=== PATIENT | female | born 1950 | race Caucasian/White ===

== ENCOUNTER 2017-10-15 06:08 | Inpatient (IN) ==
[~2017-10-15 06:08] MED LIST: Bacitracin 50,000 UNIT, Polymyxin B Sulfate 500,000 UNIT, Sodium Chloride IRRigation 1,... IR ONE
[2017-10-15] MEDS ORDERED: Lidocaine -MPF 1% 2 ML VIAL ID ONE (06:27)
[2017-10-15] MEDS ORDERED: Albuterol 2.5 MG/3 ML NEBULIZER IH ONE (06:27)
[2017-10-15] MEDS ORDERED: CeFAZolin Syr 2,000MG/20 ML 2,000 MG/20 ML SYRINGE IVPB ONE (06:27)
[2017-10-15] MEDS ORDERED: Plasma-Lyte A (PH 7.4) 1,000 ML IVC SCH (06:30)
--- NOTE | 2017-10-15 06:59 | History & Physical Report ---
Date of Encounter: 10/15/17 Time of Encounter: 06:59 24 Hour HP Update - Instructions Instructions: If the History and Physical is less than 30 days old and was completed prior to A.M. admission and or procedure and has NOT been updated on calendar day of procedure please complete this update prior to performing procedure. - Update Patient reports changes in Medical Condition: No Changes in examination, assessment, or condition: No Changes in Medication: No Preop tests/diagnostics Reviewed: Yes Pre-Op MRSA Screen: Negative Surgery Remains Indicated: Yes Consent for Planned Operative Procedure(s) Verified: Yes - Pre-Operative Checklist Preoperative Checklist Indicated: No Prophylactic Antibiotic Ordered: Yes Home Medications Include Beta Jimy: Yes Beta Jimy Taken Today (Day of Surgery): No Beta Jimy Taken Yesterday (Day Prior to Surgery): Yes Is VTE Prophylaxis Indicated?: Yes
[2017-10-15] MEDS ORDERED: *HR* FentaNYL (PF) 100 MCG/2 ML VIAL ONE (07:19)
[2017-10-15] MEDS ORDERED: *HR* Succinylcholine 200 MG/10 ML VIAL IVP ONE (07:19)
[2017-10-15] MEDS ORDERED: *HR* Propofol 200 MG/20 ML VIAL IVP ONE (07:19)
[2017-10-15] MEDS ORDERED: Lidocaine -MPF 2% 2 ML VIAL ONE (07:19)
[2017-10-15] MEDS ORDERED: *HR* Midazolam HCl 2 MG/2 ML VIAL ONE (07:19)
[2017-10-15] MEDS ORDERED: *HR* Rocuronium Bromide 50 MG/5 ML VIAL ONE (07:19)
[2017-10-15] MEDS ORDERED: *HR* Remifentanil 2 MG VIAL IVP ONE (07:22)
--- NOTE | 2017-10-15 07:24 | Anesthesia Evaluation PreOp ---
Date of Encounter: 10/15/17 Time of Encounter: 07:18 - Past History Planned Operation: corpectomy C4, cervical fusion C3-6 Cardiac History: SD (by history, patient denies), HTN, Hyperlipidemia Pulmonary History: Denies Any Significant HX TRAVEL SERVICES PROFESSIONAL History: TIA (x2 no residual) Other Medical History: Diabetes Type II, Other (overall the patient and are poor historians.) Anesthesia History: No Prior Anesthetic Complications, Past Anesthesia (right ankle, cataract) : No Alcohol Use: none Drug use: none Medications and Allergies Aspirin 81 mg PO DAILY 10/15/17 [History] Carvedilol [Carvedilol] 3.125 mg PO BID 10/15/17 [History] Cilostazol [Cilostazol] 50 mg PO DAILY 10/15/17 [History] Clopidogrel [Plavix] 75 mg PO DAILY 10/15/17 [History] Docusate Sodium [Dok] 100 mg PO DAILY 10/15/17 [History] Medroxyprogesterone Acetate [Provera] 2.5 mg PO DAILY 10/15/17 [History] Metformin HCl [Metformin HCl ER] 1,000 mg PO BID 10/15/17 [History] Multivit-Min/FA/Lycopen/Lutein [Centrum Silver Tablet] 1 tab PO DAILY 10/15/17 [ History] Simvastatin [Zocor] 40 mg PO HS 10/15/17 [History] glipiZIDE [Glipizide] 20 mg PO BID 10/15/17 [History] hydroCHLOROthiazide [Hydrochlorothiazide] 12.5 mg PO QAM 10/15/17 [History] 3 Allergy/AdvReac Type Severity Reaction Status Date / Time No Known Allergies Allergy Verified 10/15/17 06:41 - Meds/Allergy Pre-op Review Medications Reviewed: Yes Allergies Reviewed: Yes Beta Blockers on Current Med List: Yes If Beta Blockers taken, Date/Time (Last Dose taken): today 0400 (they told nurse they hadn't taken med x 3 days) Anesthesia Results - Labs Laboratory Tests 10/08/17 10/08/17 14:00 14:00 Hgb 12.3 Hct 37.9 Plt Count 238 Sodium 140 Potassium 4.4 BUN 21 Creatinine 0.89 - Imaging EKG: report reviewed (SINUS RHYTHM BORDERLINE LEFT AXIS DEVIATION LOW QRS VOLTAGE PATTERN CONSISTENT WITH PULMONARY DISEASE) Anesthesia Exam Selected Entries 10/15/17 06:42 Temperature 97.9 F Pulse Rate 73 Respiratory Rate 18 Blood Pressure 132/56 O2 Sat by Pulse Oximetry 98 Weight: 64kg NPO (# of Hours): 8 - HEENT Pupil (Motor): EOMI Mallampati: II Teeth: Poor dentition Oral Opening: Less than or equal to 3 - TRAVEL SERVICES PROFESSIONAL LOC: Oriented TRAVEL SERVICES PROFESSIONAL Motor: Normal RUE, Normal LUE, Normal RLE, Normal LLE, Normal Face TRAVEL SERVICES PROFESSIONAL Sensory: Normal: RUE, LUE, RLE, LLE, Face - Cardiac Rhythm: Regular Murmur: None - Pulmonary Breath Sounds: bilateral Clear Respiratory Effort: Symmetrical Anesthesia Assess/Plan ASA Score: 3 Modified [place] Scale for Level of Consciousness: Cooperative, oriented, and tranquil Anesthetic Plan: General Monitoring Plan: Standard Monitors Recovery Plan: PACU (agrees to GA)
[2017-10-15] MEDS ORDERED: *HR* Phenylephrine 10 MG/ML VIAL ONE (07:30)
[2017-10-15] MEDS ORDERED: Propofol 500 MG/50 ML INFUS..BTL ONE ×4 (07:31→10:42)
[2017-10-15] MEDS ORDERED: *HR* Promethazine 25 MG/ML VIAL IVP PRN (09:01)
[2017-10-15] MEDS ORDERED: *HR* Labetalol 20 MG/4 ML SYRINGE IVP PRN (09:01)
[2017-10-15] MEDS ORDERED: Ondansetron 4 MG/2 ML VIAL IVP ONE (09:01)
[2017-10-15] MEDS ORDERED: *HR* HYDROmorphone (PF) 1 MG/ML SYRINGE IVP PRN (09:01)
[2017-10-15] MEDS ORDERED: Ondansetron 4 MG/2 ML VIAL ONE (10:34)
[2017-10-15] MEDS ORDERED: Dexamethasone 4 MG/ML VIAL ONE (10:34)
--- NOTE | 2017-10-15 11:55 | Orthopedic Operative Note ---
Date of procedure: 10/15/17 Pre-op diagnosis: Cervical stenosis, cervical myelopathy Post-op diagnosis: same Operation/Findings: Corpectomy C4, Anterior cervical fusion C3-C6: The patient was brought to the operating room and placed supine on the operating room table. Successful general endotracheal anesthesia intubation was performed. Neurophysiologic monitoring personnel placed leads on the upper and lower extremities as well as the cranium for EMG monitoring purposes. Appropriate baseline potentials were noted by the neurophysiologic monitoring staff. Fernandez catheter was placed prior to positioning. Compression boots and stockings were placed for deep vein thrombosis prophylaxis. Padding was also placed all bony prominences including the ulnar nerve near the medial epicondyles of the elbows were appropriately padded. Mild traction was placed on the bilateral shoulders and taped into place. Preoperative antibiotics were administered. The area from the mandible bilaterally to the upper thoraces was prepped and draped in the usual sterile fashion. An oblique incision was made at the level of the cricoid cartilage which is approximately 3 cm in length and extended from the midline of the cervical spine laterally towards the sternocleidomastoid muscle on the left. It was 1 cm medial and parallel to the sternocleidomastoid muscle on the left. We then performed standard medial approach to the carotid sheath. Sponges were used to tease the fascial medial to the sternocleidomastoid muscle while carefully controlling and palpating the carotid artery. Using careful dissection we were able to get to the level of the anterior vertebral bodies and longus coli muscles. The spinal needle was placed at the appropriate C5-6 level, and intraoperative radiograph was obtained which was a cervical spine lateral radiograph. The needle and radiograph confirmed we were at the correct C5-6 operative level. We further exposed this level by using Bovie cautery under the medial edge of the longus colli muscles to allow them to be retracted approximately 2 mm laterally on each side. An 11 blade was used to perform anterior discectomy at the appropriate C5-6 level after an initial annulotomy of the anterior longitudinal ligament and annulus was performed. Further disc material was removed with pituitary Rongeurs. Subsequently, Synthes pins were placed at the C6 and C7 vertebral bodies respectively to provide distraction. We then used a Trimline cervical retractor which was placed in both medial and lateral as well as inferior superior direction to allow full visualization of the appropriate C5-6 disc and C5 and C6 vertebral bodies. The Leica microscope was brought to the field and the remainder of the procedure was performed under the guidance of this microscope. Using pituitary rongeurs and small curettes, various micro- instruments, a full discectomy was performed at the appropriate C5-6 level. The posterior longitudinal ligament was encountered and appeared partially calcified. A portion of this ligament was removed. After complete and thorough discectomy and removal of spondylitic material was performed the endplates of the C5 and C6 vertebral bodies were prepared with a bur until allow bleeding of cancellous bone. A 8mm trial graft was evaluated and appeared to fit quite well within the excised C5-6 disc space. A cortico- cancellous allograft of 8 mm was utilized, carefully tapped into place within the excised disc space with the aid of a bone tamp. It was seated approximately 2 mm from the anterior edge of the cortex of the adjacent vertebral bodies. We then turned our attention to the C4-5 level where a similar series of procedures was performed including discectomy, removal of spondylitic material, and end plate preparation. We then turned our attention to the C3-4 level where an additional discectomy and decompression was performed at this level. This left intervening C4 vertebral body. We removed the C4 anterior portion of the vertebral body with Elia using pituitary instruments. Bone was saved for later use within the expandable cage. We decompressed all the way back to the posterior longitudinal ligament and also visualize the spinal cord. At this point the decompression was complete and will space between the inferior endplate of C3-4 to the superior endplate of C5- [address] the [address] to the posterior longitudinal ligament. With the decompression was approximately 7 mm on either side of the midline from C3- C5. We measured the intervening space from the anterior portion of C3 to the superior portion of C5 with a caliper. The appropriate size expandable cage was selected. We packed this expandable cage with autograft bone taken from the corpectomy portion of the procedure(C4). The corpectomy cage was carefully placed after it was packed with autograft bone with the aid of biplanar fluorographic views. When found to be in appropriate position the cage was expanded to the appropriate height and the chocolate finisher removed. A cervical plate was then placed on the anterior aspect of the C3, C4, C5 and C6 vertebral bodies. The plate was placed in the midline position after drilling six 13 mm self tapping screws and inserting them. They were locked in place using standard Venture plate maneuvers. At this point a lateral radiograph of the cervical spine was obtained and showed satisfactory position of the interbody cage, graft, and plate. The wound was copiously irrigated and bleeders encountered were cauterized using Bovie cautery. Platysma was closed with interrupted 2-0 Vicryl sutures. Running 3-0 Monocryl suture was used for skin closure. Sterile dressing was placed over the neck wound. A cervical collar was placed. The patient was transferred to a hospital bed and extubated. The patient was noted to be fully motor and sensory intact in the recovery room at the end of the procedure. The medications. All sponge instrument and needle counts were correct at the end of the procedure. Anesthesia: NIGEL Surgeon: Skip John Jr Was there an hospital clinic assistant present: No Estimated blood loss (cc): 100 Specimen: none Condition: stable Disposition: PACU
[2017-10-15] MEDS: *HR* Morphine 2 MG/ML SYRINGE IVP PRN ×3 (12:34→13:05)
--- NOTE | 2017-10-15 13:13 | Anesthesia Evaluation Post Op ---
Date of Encounter: 10/15/17 Time of Encounter: 13:13 - Vital Signs Vital Signs: Vital Signs/O2 Sat, Most Current Temp Pulse Resp BP Pulse Ox 98.3 F 64 16 99/54 94 10/15/17 12:42 10/15/17 12:52 10/15/17 12:52 10/15/17 12:52 10/15/17 12:52 - Lungs Lungs: Clear Ascult./Percussion - Airway Airway: Non-obstructed - Cardiovascular Regular Rate - Mental Status Mental Status: Asleep with brisk response to light stimulation - Pain Pain Scale: 4 Pain Scale used: Numeric (1 - 10) - Nausea Vomiting Nausea Vomiting: Not Present - Hydration Hydration: NPO, Fernandez catheter - Discharge PostOp Status: Transfer Patient to floor
[2017-10-15] MEDS ORDERED: Naloxone 0.4 MG/ML INJ IVP PRN (13:19)
[2017-10-15] MEDS ORDERED: Acetaminophen 325 MG TABLET PO PRN (13:19)
[2017-10-15] MEDS ORDERED: Ondansetron 4 MG/2 ML VIAL IVP PRN (13:19)
[2017-10-15] MEDS: *HR* OxyCODONE Immed Rel 5 MG TABLET PO PRN (14:17)
[2017-10-15] MEDS: CeFAZolin Premix DUPLEX 2,000 MG/50 ML BAG IVPB SCH ×2 (17:09→23:44)
[2017-10-15] MEDS: *HR* GlipiZIDE 5 MG TABLET PO SCH (17:14)
[2017-10-15] MEDS: *HR* Metformin 500 MG TABLET PO SCH (17:14)
[2017-10-15] MEDS: Ringers Solution, Lactated 1,000 ML IVC SCH (19:41)
[2017-10-16 04:03] LABS: Basophils % 0.2 %; Hematocrit 24.1 % (35.3-44.9); Immature Granulocytes % 0.3 % (0-4); Lymphocytes # 0.7 K/mcL (0.6-4.6); Lymphocytes % 7.4 %; Mean Corpuscular HGB Conc 33.2 g/dL (31.6-35.5); Mean Corpuscular Hemoglobin 25.8 pg (28.0-33.3); Mean Corpuscular Volume 77.7 fL (83.0-100.0); Monocytes % 11.1 %; Neutrophils # 7.2 K/mcL (1.6-8.9); Nucleated Red Blood Cells 0.2 /100 WBC (0); Platelet Count 210 K/mcL (140-400); Red Cell Distribution Width 13.8 % (11.5-14.5)
[2017-10-16] MEDS: Ringers Solution, Lactated 1,000 ML IVC SCH ×3 (05:02→17:51)
[2017-10-16] MEDS: *HR* OxyCODONE Immed Rel 5 MG TABLET PO PRN (05:03)
[2017-10-16] MEDS: Aspirin 81 MG TAB.CHEW PO SCH (08:12)
[2017-10-16] MEDS: Multivit/Ca/Min/Fe/FA 1 TAB TABLET PO SCH (08:12)
[2017-10-16] MEDS: *HR* GlipiZIDE 5 MG TABLET PO SCH ×2 (08:12→17:49)
[2017-10-16] MEDS: *HR* Metformin 500 MG TABLET PO SCH ×2 (08:13→17:50)
[2017-10-16] MEDS: hydroCHLOROthiazide 25 MG TABLET PO SCH (08:13)
[2017-10-16] MEDS: *HR* Morphine 2 MG/ML SYRINGE IVP PRN ×2 (12:50→17:48)
[2017-10-16] MEDS ORDERED: Ipratropium/Albuterol Neb 3 ML IH PRN (19:23)
[2017-10-17] MEDS ORDERED: Aminoglycoside Consult 1 EACH MC ONE (08:29)
[2017-10-17] MEDS: hydroCHLOROthiazide 25 MG TABLET PO SCH (09:36)
[2017-10-17] MEDS: *HR* Metformin 500 MG TABLET PO SCH (09:36)
[2017-10-17] MEDS: *HR* GlipiZIDE 5 MG TABLET PO SCH (09:36)
[2017-10-17] MEDS: Multivit/Ca/Min/Fe/FA 1 TAB TABLET PO SCH (09:37)
[2017-10-17] MEDS: Aspirin 81 MG TAB.CHEW PO SCH (09:37)
--- NOTE | 2017-10-17 13:22 | Spine Progress Note ---
Date of Encounter: 10/16/17 Time of Encounter: 13:15 Subjective Principal diagnosis: Cervical myelopathy, status post corpectomy and cervical fusion Interval history: The patient is without complaints she is a poor historian.. Afebrile vital signs are stable. Incision is clean dry and intact. She is still nonambulatory and has impairments in upper extremity function which are baseline. Assessment :stable. Plan mobilize ,continue analgesics, discharge planning. Will likely need rehabilitation Objective Vital signs: Vital Signs Temp Pulse Resp BP Pulse Ox 10/17/17 11:38 98.9 F 92 17 103/58 91 10/17/17 07:37 99.9 F H 99 17 118/56 97 10/17/17 00:36 100 10/16/17 23:52 99.6 F 101 17 110/71 100 10/16/17 21:11 98 10/16/17 20:58 98.4 F 96 18 137/80 98 10/16/17 16:19 98.4 F 91 17 121/69 95 Intake and Output 10/16/17 10/17/17 10/17/17 23:59 07:59 15:59 Intake Total 584 / 584 Balance 584 / 584 Intake: IV Fluids 584 / 584 Lactated Ringers 1,000 ML @ 100 584 / 584 mls/hr IVC .Q10H ALEX Rx#: [id number] Oral 0 / 0 Other: # Urine Diapers 2 1 2 Blood Glucose* 231 159 196 - Labs CBC & BMP: 10/16/17 03:43 Labs: Abnormal lab results RBC 3.10 M/mcL (3.82-4.97) L 10/16/17 03:43 Hgb 8.0 g/dL (11.5-15.4) L 10/16/17 03:43 Hct 24.1 % (35.3-44.9) L 10/16/17 03:43 MCV 77.7 fL (83.0-100.0) L 10/16/17 03:43 MCH 25.8 pg (28.0-33.3) L 10/16/17 03:43 Nucleated RBCs/100 WBC 0.2 /100 WBC (0) H 10/16/17 03:43 POC Glucose 197 (58-89) H 10/17/17 11:57 Consult Discharge Plan - Plan Referrals: NONE,PCP [Primary Care Provider] -
--- NOTE | 2017-10-17 13:24 | Spine Progress Note ---
Date of Encounter: 10/17/17 Time of Encounter: 13:22 Subjective Principal diagnosis: Cervical myelopathy, status post corpectomy and cervical fusion Interval history: The patient sounds congested and required deep suctioning last night. Afebrile vital signs are stable. Incision is clean dry and intact. She is still nonambulatory and has impairments in upper extremity function which are baseline. Assessment :stable. Concern for aspiration. Plan mobilize , continue analgesics, I am going to obtain swallow evaluation, get respiratory on board for aerosol treatments and pulmonary toilet. Also will consider hospitalist consult. I will also order chest x-ray. Objective Vital signs: Vital Signs Temp Pulse Resp BP Pulse Ox 10/17/17 11:38 98.9 F 92 17 103/58 91 10/17/17 07:37 99.9 F H 99 17 118/56 97 10/17/17 00:36 100 10/16/17 23:52 99.6 F 101 17 110/71 100 10/16/17 21:11 98 10/16/17 20:58 98.4 F 96 18 137/80 98 10/16/17 16:19 98.4 F 91 17 121/69 95 Intake and Output 10/16/17 10/17/17 10/17/17 23:59 07:59 15:59 Intake Total 584 / 584 Balance 584 / 584 Intake: IV Fluids 584 / 584 Lactated Ringers 1,000 ML @ 100 584 / 584 mls/hr IVC .Q10H ALEX Rx#: [id number] Oral 0 / 0 Other: # Urine Diapers 2 1 2 Blood Glucose* 231 159 196 - Labs CBC & BMP: 10/16/17 03:43 Labs: Abnormal lab results RBC 3.10 M/mcL (3.82-4.97) L 10/16/17 03:43 Hgb 8.0 g/dL (11.5-15.4) L 10/16/17 03:43 Hct 24.1 % (35.3-44.9) L 10/16/17 03:43 MCV 77.7 fL (83.0-100.0) L 10/16/17 03:43 MCH 25.8 pg (28.0-33.3) L 10/16/17 03:43 Nucleated RBCs/100 WBC 0.2 /100 WBC (0) H 01/18/18 03:43 POC Glucose 197 (58-89) H 10/17/17 11:57 Consult Discharge Plan - Plan Referrals: NONE,PCP [Primary Care Provider] -
[2017-10-17 15:10] LABS: Basophils % 0.3 %; Eosinophils % 0.3 %; Hematocrit 25.6 % (35.3-44.9); Hemoglobin 8.5 g/dL (11.5-15.4); Immature Granulocytes % 0.4 % (0-4); Lymphocytes # 0.6 K/mcL (0.6-4.6); Mean Corpuscular HGB Conc 33.2 g/dL (31.6-35.5); Mean Corpuscular Volume 78.3 fL (83.0-100.0); Mean Platelet Volume 10.5 fL (9.4-12.4); Monocytes % 14.5 %; Neutrophils # 5.5 K/mcL (1.6-8.9); Platelet Count 219 K/mcL (140-400); Red Blood Count 3.27 M/mcL (3.82-4.97); Red Cell Distribution Width 13.9 % (11.5-14.5); Segmented Neutrophils % 76.5 %
[2017-10-17 15:28] LABS: Alanine Aminotransferase 6 Units/L (7-52); Albumin 3.1 g/dL (3.5-5.7); Albumin/Globulin Ratio 1.1 (1.1-2.2); Alkaline Phosphatase 74 Units/L (34-104); Aspartate Amino Transferase 17 Units/L (13-39); BUN/Creatinine Ratio 26 (6-26); Bilirubin,Total 0.5 mg/dL (0.3-1.0); Blood Urea Nitrogen 15 mg/dL (8-23); Calcium 8.4 mg/dL (8.6-10.3); Carbon Dioxide 25 mEq/L (23-29); Chloride 95 mEq/L (98-107); Globulin 2.8 g/dL (2.4-3.5); Glucose 190 mg/dL (70-105); Osmolality,Calculated 276 (280-300); Potassium 3.7 mEq/L (3.5-5.1); Sodium 130 mEq/L (136-145); Total Protein 5.9 g/dL (6.4-8.9); eGFR For African Americans > 60 (> 60); eGFR For Non-African Americans > 60 (> 60)
[2017-10-17 15:32] LABS: ABG Base Excess 3 mEq/L (-2 to 3); ABG HCO3 27 mEq/L (21-27); ABG Oxygen Saturation 94 % (95-98); ABG PCO2 35 mmHg (35-45); ABG PH 7.49 pH Units (7.32-7.45); ABG PO2 63 mmHg (85-104); ABG TCO2 28 mEq/L (20-26)
[2017-10-17] MEDS ORDERED: Furosemide 40 MG/4 ML VIAL IVP ONE (15:45)
--- NOTE | 2017-10-17 15:52 | Event Note ---
Date of Encounter: 10/17/17 Time of Encounter: 15:47 Patient seen and examined with nurse practitioner. Patient wheelchair bound due to spinal cord injury long time ago but was able to use her arms and no problems swallowing before. Currently Hypoxic respiratory failure due to aspiration pneumonia. Patient is requiring facemask. She is requrigin suctioning every hour so will transfer to ICU as I expect she may need intubation. arterial blood gas was a pH of 7.49, PO to 63. She got 10 mg of Roxicodone this morning will give on those of Narcan as the patient is a patient is lethargic. CT scan of the head will be performed. patient will be transferred to intensive care unit. Close Monitoring of respiratory status. Will give Narcan just physical therapy suctioning keep NPO and re-evaluate. Full code.
--- NOTE | 2017-10-17 15:52 | Internal Medicine Consult Note ---
Date of Encounter: 10/17/17 Time of Encounter: 15:00 - Assessment and Plan (1) Pneumonia Current Visit: Yes Status: Acute Assessment and plan: Acute pneumonia. Pt. is post-surgical status for cervical fusion two days ago and developed SOB, dypsnea, and inability to clear airway secretions. Consult to Hospitalist for medical mgmt. Blood cultures x2. Sputum culture. Legionella and strep pneunomiae antigens ordered. Pt. is currently incontinent, so Fernandez catheter ordered to prevent skin breakdown. IVPB vancomycin w/pharmacy dosing and Zosyn 3.375 gm Q8 for infection coverage. Will adjust abx coverage based on culture results. Supplemental O2 w/titration and SpO2 monitoring. DuoNebs Q4 scheduled. Pt. does not currently meet sepsis criteria but will be monitored closely as well as f/u labs. Pt. discussed w/Dr. Peralta who is in agreement w/ plan of care. Pt. is high risk for further morbidity, sepsis, respiratory distress and/or failure, and cardiac distress based on current sx and risk factors. Inpatient. Qualifiers: Pneumonia type: due to unspecified organism Laterality: right Lung location: lower lobe of lung Qualified Code(s): J18.1 - Lobar pneumonia, unspecified organism (2) Airway clearance impairment Current Visit: Yes Status: Acute Assessment and plan: Acute airway clearance impairment complicated by current pneumonia. Pt. having difficulty clearing airway secretions and is high risk for aspiration. NPO. Airway suctioning ordered. Will hold PO medications. Pulmonology consult ordered and discussed w/Dr. Benitez regarding possible need for bronch and/or intubation. I appreciate the consult. Pt. being transferred from [facility] to ICU. Continuous aspiration precautions. Pt. to be monitored closely. (3) Status post cervical spinal fusion Current Visit: Yes Status: Acute Assessment and plan: Acute status post cervical spinal fusion 2 days ago. Patient to be followed by Dr. John. (4) Hypoxia Current Visit: Yes Status: Acute Assessment and plan: Acute hypoxia r/t current pneumonia dx of right mid to lower lobe and inability to clear airway secretions. ABG ordered stat. Pt. SpO2 was in 70's. Placed on 4L and SpO2 improved to low 90's. Concern is for high risk of aspiration d/t pts. inability to clear airway secretions. Pulmonology consult ordered and discussed w/Dr. Benitez regarding possible need for bronch and/or intubation. I appreciate the consult. Pt. being transferred from [facility] to ICU. DuoNebs Q4 scheduled. (5) HTN (hypertension) Current Visit: Yes Status: Chronic Assessment and plan: Hx of chronic HTN. Monitor pt. and VS. Pt. takes PO hydrochlorothiazide and carvedilol. Will hold PO meds for now d/t high risk of aspiration and inability to clear airway secretions. Consider adding hydralazine 10 mg Q6 PRN for HTN. Qualifiers: Hypertension type: essential hypertension Qualified Code(s): I10 - Essential (primary) hypertension (6) HLD (hyperlipidemia) Current Visit: Yes Status: Chronic Assessment and plan: Hx of chronic HLD. Lipid panel in a.m. labs. Pt. takes Zocor. Will hold PO meds for now d/t high risk of aspiration and inability to clear airway secretions. Qualifiers: Hyperlipidemia type: pure hypercholesterolemia Qualified Code(s): E78.00 - Pure hypercholesterolemia, unspecified; E78.0 - Pure hypercholesterolemia (7) Diabetes Current Visit: Yes Status: Chronic Assessment and plan: Hx of diabetes controlled w/oral anti-hyperglycemics. Hold oral and administer low-dose correction insulin sliding scale w/hypoglycemic protocol. BG checks Q6. A1c in a.m. labs. Qualifiers: Diabetes mellitus type: type 2 Diabetes mellitus complication status: with unspecified complications Diabetes mellitus continuous churn buttermaker insulin use: without correction use Qualified Code(s): E11.8 - Type 2 diabetes mellitus with unspecified complications (8) DVT prophylaxis Current Visit: Yes Status: Acute Assessment and plan: Bilateral SCDs on LEs for DVT prophylaxis d/t post-surgical status and substantial drop in HGB from 12.3 on 10/08/17 to 8.0 today. Monitor pt. for signs of bleeding. Internal Medicine - CN: HPI - Data of Consult Patient: new to practice Consult date: 10/17/17 Requesting Physician: Skip John Jr MD - Consult Narrative Reason for consult: Medical mgmt of SOB/dyspnea/pneumonia History of present illness: Ms. Marcos is a 67 year old female with medical hx of diabetes, HLD, and HTN presents for consult from Dr. John d/t sx of SOB, dyspnea, and suspected pneumonia. Pt. had cervical fusion two days ago and was found to be having increased SOB, dyspnea, and increasing inability to clear airway secretions that began approximately at noon today. CXR ordered which shows airspace opacity in the right mid to lower lung field likely related to pneumonia. Pt. is able to answer simple questions on exam, but most information comes from pts. sister who is present on exam. Sister states pt. was able to hold conversation several days ago and had no sx of respiratory distress. Pt. is wheelchair-bound and/or is carried by her . Denies recent illness, fever , chills, nausea, vomiting, chest pain, changes in vision, abdominal pain, numbness, tingling, pre-syncope, or syncope. Past Med Surg Social Fam HX - Past Medical History Source: patient, old records reviewed, obtained from family Medical history: diabetes, hyperlipidemia, hypertension Psychiatric history: no psych history - Past Surgical History Surgical History: cataract - Social History Smoking Status: Never smoker Alcohol use: none Drug use: none Current living situation: Home, With Family Activity Level: Wheelchair bound Recent Out of Country Travel Within the Last 8 Weeks: No Exposure or Possible Exposure to Illness During Travel: No - Family History Father Race: Family Member Ethnicity: Non- Living Status: Age at : 61 Cause of : [place] Hx Family Cardiac Disorders: Yes ([place], HTN, HLD) Mother Race: Family Member Ethnicity: Non- Living Status: Age at : 80 Cause of : CHF Hx Family Cardiac Disorders: Yes (Stroke, CHF) Hx Family Endocrine Disorder: Yes (DM) Sister Race: Family Member Ethnicity: Non- Living Status: Still Living Hx Family Cardiac Disorders: Yes (Open heart surgery, HTN) - Constitutional Constitutional: as per HPI - EENT Eyes: as per HPI Ears: as per HPI Nose, mouth and throat: as per HPI - Breasts Breasts: as per HPI - Cardiovascular Cardiovascular ROS IM: as per HPI, dyspnea, dyspnea on exertion, irregular heart rhythm (Tachycardia) - Respiratory Respiratory: as per HPI, dyspnea, dyspnea on exertion - Gastrointestinal Gastrointestinal: as per HPI - Genitourinary Genitourinary: as per HPI Menstruation: as per HPI - Musculoskeletal Musculoskeletal ROS IM: as per HPI - Integumentary Integumentary IM: as per HPI - Neurological Neurological ROS: as per HPI, behavioral changes - Psychiatric Psychiatric: as per HPI - Endocrine Endocrine IM: as per HPI - Hematologic/Lymphatic Hematologic/Lymphatic: as per HPI - Allergic/Immunologic Allergic/Immunologic: as per HPI Internal Medicine - CN: Meds Aspirin 81 mg PO DAILY 10/15/17 [History] Carvedilol [Carvedilol] 3.125 mg PO BID 10/15/17 [History] Cilostazol [Cilostazol] 50 mg PO DAILY 10/15/17 [History] Clopidogrel [Plavix] 75 mg PO DAILY 10/15/17 [History] Docusate Sodium [Dok] 100 mg PO DAILY 10/15/17 [History] Medroxyprogesterone Acetate [Provera] 2.5 mg PO DAILY 10/15/17 [History] Metformin HCl [Metformin HCl ER] 1,000 mg PO BID 10/15/17 [History] Multivit-Min/FA/Lycopen/Lutein [Centrum Silver Tablet] 1 tab PO DAILY 10/15/17 [ History] Simvastatin [Zocor] 40 mg PO HS 10/15/17 [History] glipiZIDE [Glipizide] 20 mg PO BID 10/15/17 [History] hydroCHLOROthiazide [Hydrochlorothiazide] 12.5 mg PO QAM 10/15/17 [History] 3 Allergy/AdvReac Type Severity Reaction Status Date / Time No Known Allergies Allergy Verified 10/15/17 06:41 Internal Medicine - CN: Exam - Constitutional Vitals: Temp Pulse Resp BP Pulse Ox 98.9 F 92 17 103/58 91 10/17/17 11:38 10/17/17 11:38 10/17/17 11:38 10/17/17 11:38 10/17/17 11:38 General appearance IM: Present: cooperative, A&O X 3, obese, severe distress, answers questions appropriately (w/several attempts) - Head Head exam: Present: atraumatic, normocephalic - Eye Eye exam: Present: PERRL, conjuntiva pink, sclera anicteric Pupils: Present: normal accommodation, PERRL - ENT ENT exam: Present: normal exam - Neck Neck exam general surgery: Present: normal inspection - Respiratory Respiratory exam: Present: accessory muscle use, respiratory distress, rhonchi ( Bilaterally in all lobes) - Expanded Respiratory Exam Location: rhonchi: Left, Right, Upper, Lower - Cardiovascular Cardiovascular exam IM: Present: tachycardia - GI/Abdominal GI/Abdominal exam IM: Present: normal bowel sounds, soft, no peritoneal signs - Rectal Rectal exam: Present: deferred - Additional comments: exam deferred. - Extremities Exam Extremities exam IM: Present: pedal edema, warm, radial pulses palpable and symmetrical - Back Exam Back exam: Present: normal inspection - Neurological Exam Neurological exam: Present: alert, oriented X3, no focal deficits - Psychiatric Psychiatric exam: Present: anxious - Skin Skin exam IM: Present: dry, intact Internal Medicine - CN: Reslt - Labs CBC & Chem 7: 10/17/17 15:00 10/17/17 15:00 Labs: Short CBC 10/17/17 Range/Units 15:00 WBC 7.1 (4.3-11.1) K/mcL Hgb 8.5 L (11.5-15.4) g/dL Hct 25.6 L (35.3-44.9) % Plt Count 219 (140-400) K/mcL Neutrophils # 5.5 (1.6-8.9) K/mcL BMP 10/17/17 15:00 Sodium 130 L Potassium 3.7 Chloride 95 L Carbon Dioxide 25 BUN 15 Creatinine 0.57 L Glucose 190 H Calcium 8.4 L Liver Function 10/17/17 Range/Units 15:00 Total Bilirubin 0.5 (0.3-1.0) mg/dL AST 17 (13-39) Units/L ALT 6 L (7-52) Units/L Alkaline Phosphatase 74 (34-104) Units/L Albumin 3.1 L (3.5-5.7) g/dL - ABG Interpretation ABG results: ABG ABG pH 7.49 pH Units (7.32-7.45) H 10/17/17 15:27 ABG pCO2 35 mmHg (35-45) 10/17/17 15:27 ABG pO2 63 mmHg (85-104) L 10/17/17 15:27 ABG O2 Saturation 94 % (95-98) L 10/17/17 15:27 - Impressions Impressions Chest X-Ray 10/17/17 13:15 IMPRESSION: Airspace opacity in the right mid to lower lung field, likely related to pneumonia. D/ / Dilip Saini MD / Dilip Saini MD Interpreting Provider: Dilip Siani MD - Diagnostic Studies Chest x-ray Additional comments: Impressions Chest X-Ray 10/17/17 13:15 IMPRESSION: Airspace opacity in the right mid to lower lung field, likely related to pneumonia. D/ / Dilip Saini MD / Dilip Saini MD Interpreting Provider: Dilip Saini MD Consult Discharge Plan - Plan Referrals: NONE,PCP [Primary Care Provider] -
[2017-10-17] MEDS: Ipratropium/Albuterol Neb 3 ML IH SCH ×3 (15:53→23:52)
[2017-10-17] MEDS ORDERED: Vancomycin 1,000 MG in D5% in Water 250 ML IVPB SCH (16:00)
[2017-10-17] MEDS ORDERED: Piperacillin/Tazobactam 3.375 GM/200 ML BAG IVPB SCH (16:00)
[2017-10-17] MEDS ORDERED: D5% in Water 1,000 ML IVC PRN (16:20)
[2017-10-17] MEDS ORDERED: Dextrose Gel 15 GM/37.5 ML TUBE PO PRN ×2 (16:20)
[2017-10-17] MEDS ORDERED: *HR* Dextrose 50 % in Water (Syg) 50 ML SYRINGE IVP PRN (16:20)
--- NOTE | 2017-10-17 17:37 | Pulmonology Consult Note ---
<Yassine Benitez M - Last Filed: 10/17/17 17:51> Date of Encounter: 10/17/17 Medications and Allergies Aspirin 81 mg PO DAILY 10/15/17 [History] Carvedilol [Carvedilol] 3.125 mg PO BID 10/15/17 [History] Cilostazol [Cilostazol] 50 mg PO DAILY 10/15/17 [History] Clopidogrel [Plavix] 75 mg PO DAILY 10/15/17 [History] Docusate Sodium [Dok] 100 mg PO DAILY 10/15/17 [History] Medroxyprogesterone Acetate [Provera] 2.5 mg PO DAILY 10/15/17 [History] Metformin HCl [Metformin HCl ER] 1,000 mg PO BID 10/15/17 [History] Multivit-Min/FA/Lycopen/Lutein [Centrum Silver Tablet] 1 tab PO DAILY 10/15/17 [ History] Simvastatin [Zocor] 40 mg PO HS 10/15/17 [History] glipiZIDE [Glipizide] 20 mg PO BID 10/15/17 [History] hydroCHLOROthiazide [Hydrochlorothiazide] 12.5 mg PO QAM 10/15/17 [History] 3 Allergy/AdvReac Type Severity Reaction Status Date / Time No Known Allergies Allergy Verified 10/15/17 06:41 All Systems: A 10-system review of systems was performed and is negative for pertinent findings except as documented above in the HPI. Physical Examination Vital Signs: Vital Signs, Last 4 Hours Resp Pulse Ox 10/17/17 16:00 16 97 Results - Laboratory Findings CBC and BMP: 10/17/17 15:00 10/17/17 15:00 ABG ABG pH 7.49 pH Units (7.32-7.45) H 10/17/17 15:27 ABG pCO2 35 mmHg (35-45) 10/17/17 15:27 ABG pO2 63 mmHg (85-104) L 10/17/17 15:27 ABG O2 Saturation 94 % (95-98) L 10/17/17 15:27 Abnormal lab findings: Abnormal lab results RBC 3.27 M/mcL (3.82-4.97) L 10/17/17 15:00 Hgb 8.5 g/dL (11.5-15.4) L 10/17/17 15:00 Hct 25.6 % (35.3-44.9) L 10/17/17 15:00 MCV 78.3 fL (83.0-100.0) L 10/17/17 15:00 MCH 26.0 pg (28.0-33.3) L 10/17/17 15:00 Nucleated RBCs/100 WBC 0.2 /100 WBC (0) H 10/16/17 03:43 ABG pH 7.49 pH Units (7.32-7.45) H 10/17/17 15:27 ABG pO2 63 mmHg (85-104) L 10/17/17 15:27 ABG Total CO2 28 mEq/L (20-26) H 10/17/17 15:27 ABG O2 Saturation 94 % (95-98) L 10/17/17 15:27 Sodium 130 mEq/L (136-145) L 10/17/17 15:00 Chloride 95 mEq/L (98-107) L 10/17/17 15:00 Creatinine 0.57 mg/dL (0.60-1.20) L 10/17/17 15:00 Glucose 190 mg/dL (70-105) H 10/17/17 15:00 POC Glucose 197 (58-89) H 10/17/17 11:57 Calculated Osmolality 276 (280-300) L 10/17/17 15:00 Calcium 8.4 mg/dL (8.6-10.3) L 10/17/17 15:00 ALT 6 Units/L (7-52) L 10/17/17 15:00 Serum Total Protein 5.9 g/dL (6.4-8.9) L 10/17/17 15:00 Albumin 3.1 g/dL (3.5-5.7) L 10/17/17 15:00 - Microbiology Findings Microbiology Findings: Microbiology, Last 48 Hours 10/17/17 16:14 Legionella Antigen - Final Urine,Catheterized Streptococcus pneumoniae Antigen (M - Final Consult Discharge Plan - Plan Referrals: Betty Ortega PAC [Physician Doorshaker] - 10/28/17 2:15 pm Skip John Jr, MD [Partnered Physician] - 01/16/18 11:30 am ([facility] [place] [id number] ) NONE,PCP [Primary Care Provider] - - Attending Attestation I examined this patient and my medical decision-making was reviewed with the Resident Physician. I agree with the documented findings, disposition and treatment plan as described except to the extent set forth below. Patient seen and examined. Labs, radiology, chart personally reviewed. I was called to evaluate this patient and had seen her when she was in [address]. and also in ICU. Agree with resident's history and physical, assessment, plan with following comments: ELECTROMECHANICAL TECHNICIAN: Patient follows commands, however she is lethargic Pulmonary: Acceptable oxygenation and ventilation. Reviewed her ABG which is acceptable. I discussed time she is protecting her airway and due to her recent surgery she is high-risk she could get into complications and will monitor how frequently she will need to airway clearance and suctioning and if she would need invasive ventilation then anesthesia needs to be present in case she has complications. At this time she was not be a candidate for bronchoscopy. Cardiovascular: stable GI: Nutrition per dietary and GI prophylaxis per routine. Patient to be nothing by mouth Heme: DVT prophylaxis per routine ID: Continue antibiotics and plan to de-escalation. There is a risk of aspiration and to empirically cover her for pneumonia Renal; urine out put and renal funtion reviewed Endorcine: blood glucose is monitored Lines: all lines checked and no evidence of infections Skin: skin care to prevent pressure ulcers per nursing routine care I spent 32 min of Critical Care time with this patient. It involved decision making of high complexity to assess, manipulate, and support vital organ system failure and/or to prevent further life threatening deterioration of the patient' s condition. The time involved in the performance of separately reportable procedures was not counted toward critical care time. <Bob Benavides - Last Filed: 10/17/17 18:39> Date of Encounter: 10/17/17 Time of Encounter: 18:00 Assessment and Plan (1) Pneumonia Current Visit: Yes Status: Acute Imaging demonstrated possible pneumonia. -Inability to clear airway secretions. -Blood and sputum cultures have been ordered. -DuoNeb's every 4 hours. -Zosyn 3.375 g every 8 hours. -If patient's respiratory status declines and needs intubated; must be done by anesthesiology due to recent cervical fusion. Qualifiers: Pneumonia type: due to unspecified organism Laterality: right Lung location: lower lobe of lung Qualified Code(s): J18.1 - Lobar pneumonia, unspecified organism (2) HTN (hypertension) Current Visit: Yes Status: Chronic Patient is currently hypotensive. By mouth meds of been held. Qualifiers: Hypertension type: essential hypertension Qualified Code(s): I10 - Essential (primary) hypertension (3) HLD (hyperlipidemia) Current Visit: Yes Status: Chronic -History of chronic hyperlipidemia. -Lipid panel scheduled for a.m. labs. -Normally takes Zocor; by mouth meds have been held. Qualifiers: Hyperlipidemia type: pure hypercholesterolemia Qualified Code(s): E78.00 - Pure hypercholesterolemia, unspecified; E78.0 - Pure hypercholesterolemia (4) Diabetes Current Visit: Yes Status: Chronic Patient has known history of diabetes. Accu-Cheks every 4. Hemoglobin A1c and a.m. labs. Qualifiers: Diabetes mellitus type: type 2 Diabetes mellitus complication status: with unspecified complications Diabetes mellitus lobsterman insulin use: without lobsterman use Qualified Code(s): E11.8 - Type 2 diabetes mellitus with unspecified complications (5) Airway clearance impairment Current Visit: Yes Status: Acute Patient has noted acute airway clearance impairment. -Patient is on high risk for aspiration. -Nothing by mouth. -Airway suctioning ordered. -By mouth medications well. -Patient may need bronchoscopy. (6) DVT prophylaxis Current Visit: Yes Status: Acute Bilateral SCDs for DVT prophylaxis. Monitor for signs of bleeding. History of Present Illness Consult date: 10/17/17 Reason for consult: dyspnea History of present illness: Ms. Marcos is a 67 year old female PMH diabetes, HLD, and HTN presents for consult from Dr. John d/t sx of SOB, dyspnea, and suspected pneumonia. Pt. is status post corpectomy of C4 and anterior cervical fusion of C3-6 two days ago; found to be having increased SOB, dyspnea, and increasing inability to clear airway secretions that began approximately at noon today. CXR ordered which shows airspace opacity in the right R to lower lung field likely related to PNA. Pt. able to answer simple questions on exam, but most information comes from pts. sister who is present on exam. Sister states pt. was able to hold conversation several days ago and had no sx of respiratory distress. Pt. is wheelchair-bound and/or is carried by her . Denies recent illness, fever, chills, nausea, vomiting, chest pain, changes in vision, abdominal pain, numbness, tingling, pre-syncope, or syncope. Patient was seen and examined at bedside this evening. Patient is arousable; nonverbal. Does not appear in any acute respiratory distress. Currently on oxygen mask. Patient currently has very little movement. Past Med Surg Social Fam HX - Past Medical History Medical history: diabetes, hyperlipidemia, hypertension Psychiatric history: no psych history - Past Surgical History Surgical History: cataract - Social History Smoking Status: Never smoker Alcohol use: none Drug use: none - Family History Father Race: Family Member Ethnicity: Non- Living Status: Age at : 61 Cause of : [place] Hx Family Cardiac Disorders: Yes ([place], HTN, HLD) Mother Race: Family Member Ethnicity: Non- Living Status: Age at : 80 Cause of : CHF Hx Family Cardiac Disorders: Yes (Stroke, CHF) Hx Family Endocrine Disorder: Yes (DM) Sister Race: Family Member Ethnicity: Non- Living Status: Still Living Hx Family Cardiac Disorders: Yes (Open heart surgery, HTN) ROS unobtainable: due to mental status All Systems: A 10-system review of systems was performed and is negative for pertinent findings except as documented above in the HPI. Physical Examination Vital Signs: Vital Signs, Last 4 Hours Resp Pulse Ox 10/17/17 16:00 16 97 General appearance: no acute distress Neck: other (Wound visible from recent cervical fusion.) Effort: normal Auscultation: bilateral: diminished breath sounds Cardiovascular: other (Tachycardic) Integumentary: normal Extremities: no cyanosis unable to assess due to mental status Results - Laboratory Findings CBC and BMP: 10/17/17 15:00 10/17/17 15:00 ABG ABG pH 7.49 pH Units (7.32-7.45) H 10/17/17 15:27 ABG pCO2 35 mmHg (35-45) 10/17/17 15:27 ABG pO2 63 mmHg (85-104) L 10/17/17 15:27 ABG O2 Saturation 94 % (95-98) L 10/17/17 15:27 Abnormal lab findings: Abnormal lab results RBC 3.27 M/mcL (3.82-4.97) L 10/17/17 15:00 Hgb 8.5 g/dL (11.5-15.4) L 10/17/17 15:00 Hct 25.6 % (35.3-44.9) L 10/17/17 15:00 MCV 78.3 fL (83.0-100.0) L 10/17/17 15:00 MCH 26.0 pg (28.0-33.3) L 10/17/17 15:00 Nucleated RBCs/100 WBC 0.2 /100 WBC (0) H 10/16/17 03:43 ABG pH 7.49 pH Units (7.32-7.45) H 10/17/17 15:27 ABG pO2 63 mmHg (85-104) L 10/17/17 15:27 ABG Total CO2 28 mEq/L (20-26) H 10/17/17 15:27 ABG O2 Saturation 94 % (95-98) L 10/17/17 15:27 Sodium 130 mEq/L (136-145) L 10/17/17 15:00 Chloride 95 mEq/L (98-107) L 10/17/17 15:00 Creatinine 0.57 mg/dL (0.60-1.20) L 10/17/17 15:00 Glucose 190 mg/dL (70-105) H 10/17/17 15:00 POC Glucose 197 (58-89) H 10/17/17 11:57 Calculated Osmolality 276 (280-300) L 10/17/17 15:00 Calcium 8.4 mg/dL (8.6-10.3) L 10/17/17 15:00 ALT 6 Units/L (7-52) L 10/17/17 15:00 Serum Total Protein 5.9 g/dL (6.4-8.9) L 10/17/17 15:00 Albumin 3.1 g/dL (3.5-5.7) L 10/17/17 15:00 - Microbiology Findings Microbiology Findings: Microbiology, Last 48 Hours 10/17/17 16:14 Legionella Antigen - Final Urine,Catheterized Streptococcus pneumoniae Antigen (M - Final
[2017-10-17] MEDS: Vancomycin 750 MG in D5% in Water 250 ML IVPB SCH (18:39)
[2017-10-17] MEDS: Insulin LISPRO 300 UNITS/3 ML VIAL SQ SCH ×2 (18:40→19:56)
[2017-10-17] MEDS ORDERED: Acetaminophen IV 1,000 MG/100 ML INFUS..BTL IVPB ONE (20:04)
[2017-10-17] MEDS ORDERED: Insulin LISPRO 300 UNITS/3 ML VIAL SQ SCH (21:00)
[2017-10-18] MEDS: Piperacillin/Tazobactam 3.375 GM/200 ML BAG IVPB SCH ×3 (03:40→20:06)
[2017-10-18] MEDS: Vancomycin 750 MG in D5% in Water 250 ML IVPB SCH (03:45)
[2017-10-18] MEDS: Ipratropium/Albuterol Neb 3 ML IH SCH ×6 (04:06→23:54)
[2017-10-18 04:38] LABS: Basophils % 0.1 %; Hematocrit 28.7 % (35.3-44.9); Hemoglobin 9.5 g/dL (11.5-15.4); Immature Granulocytes % 0.3 % (0-4); Lymphocytes # 0.6 K/mcL (0.6-4.6); Lymphocytes % 6.1 %; Mean Corpuscular HGB Conc 33.1 g/dL (31.6-35.5); Mean Corpuscular Hemoglobin 25.7 pg (28.0-33.3); Mean Corpuscular Volume 77.8 fL (83.0-100.0); Mean Platelet Volume 10.6 fL (9.4-12.4); Monocytes # 1.5 K/mcL (0.0-1.3); Monocytes % 16.1 %; Neutrophils # 7.4 K/mcL (1.6-8.9); Platelet Count 237 K/mcL (140-400); Red Blood Count 3.69 M/mcL (3.82-4.97); Red Cell Distribution Width 13.9 % (11.5-14.5); Segmented Neutrophils % 77.4 %
[2017-10-18 05:00] LABS: Hemoglobin A1C 5.7 %
[2017-10-18 05:06] LABS: Alanine Aminotransferase 6 Units/L (7-52); Albumin 3.2 g/dL (3.5-5.7); Albumin/Globulin Ratio 1.2 (1.1-2.2); Alkaline Phosphatase 74 Units/L (34-104); Aspartate Amino Transferase 17 Units/L (13-39); BUN/Creatinine Ratio 22 (6-26); Bilirubin,Total 0.6 mg/dL (0.3-1.0); Blood Urea Nitrogen 16 mg/dL (8-23); Calcium 8.2 mg/dL (8.6-10.3); Carbon Dioxide 23 mEq/L (23-29); Chloride 93 mEq/L (98-107); Chol/HDL Ratio 1.6 (0-4.9); Cholesterol 79 mg/dL (< 200); Globulin 2.7 g/dL (2.4-3.5); Glucose 220 mg/dL (70-105); HDL Cholesterol 50 mg/dL (40-59); LDL Cholesterol,Calculated 13 mg/dL (0-99); Osmolality,Calculated 276 (280-300); Potassium 3.4 mEq/L (3.5-5.1); Sodium 129 mEq/L (136-145); Total Protein 5.9 g/dL (6.4-8.9); Triglycerides 80 mg/dL (< 150); eGFR For African Americans > 60 (> 60); eGFR For Non-African Americans > 60 (> 60)
--- NOTE | 2017-10-18 07:59 | Orthopedics Progress Note ---
Date of Encounter: 10/18/17 Time of Encounter: 07:59 Subjective Principal diagnosis: Cervical myelopathy, status post corpectomy and cervical fusion Interval history: S: No acute issues overnight. O: Tmax 102 VSS Inc c/d/i Nonambulatory, at baseline neuro status of UE/LE A/P 67 yo F s/p ACDF C3-6 with C4 corpectomy with aspiration pneumonia -Med management per hospitalist and pulmonary -Mobilize as able -Pain control Objective Vital signs: Vital Signs Temp Pulse Resp BP Pulse Ox 10/18/17 07:00 102 20 124/68 99 10/18/17 06:00 96 20 107/47 99 10/18/17 05:00 95 22 118/48 100 10/18/17 04:07 25 116/53 95 10/18/17 04:00 97 28 116/53 99 10/18/17 03:43 98.7 F 10/18/17 03:00 95 27 128/59 95 10/18/17 02:00 95 26 108/55 96 10/18/17 01:00 96 25 105/53 96 10/17/17 23:52 27 95 10/17/17 23:48 99.8 F H 10/17/17 23:00 97 28 126/68 96 10/17/17 22:00 108 35 126/68 99 10/17/17 21:00 108 35 134/68 99 10/17/17 20:00 108 28 153/63 98 10/17/17 19:40 16 156/78 95 10/17/17 19:07 102 F H 10/17/17 19:00 102.0 F H 120 30 157/78 96 10/17/17 18:02 99.9 F H 109 24 149/56 99 10/17/17 16:00 16 97 10/17/17 11:38 98.9 F 92 17 103/58 91 Intake and Output 10/17/17 10/17/17 10/18/17 15:59 23:59 07:59 Intake Total 550 / 550 250 / 250 Output Total 1900 / 1900 100 / 100 Balance -1350 / -1350 150 / 150 Intake: IV Fluids 550 / 550 250 / 250 Ofirmev 1,000 mg/100 ml 1,000 100 / 100 mg In 100 ml @ 400 mls/hr IVPB ONCE ONE Rx#:[id number] Zosyn Premix 3.375 GM/200 ML 3. 200 / 200 375 gm In 200 ml @ 50 mls/hr IVPB Q8HR [facility] Rx#:[id number] Vancocin 750 MG In Dextrose 5% 250 / 250 250 / 250 250 ML @ 250 mls/hr IVPB Q12H [facility] Rx#:[id number] Output: Catheter 1900 / 1900 100 / 100 Other: # Urine Diapers 2 Weight 59.8 kg Blood Glucose* 196 203 Patient Weight 10/18/17 23:59 Weight 59.8 kg - Labs CBC & BMP: 10/18/17 04:08 10/18/17 04:08 Labs: Abnormal lab results RBC 3.69 M/mcL (3.82-4.97) L 10/18/17 04:08 Hgb 9.5 g/dL (11.5-15.4) L 10/18/17 04:08 Hct 28.7 % (35.3-44.9) L 10/18/17 04:08 MCV 77.8 fL (83.0-100.0) L 10/18/17 04:08 MCH 25.7 pg (28.0-33.3) L 10/18/17 04:08 Monocytes # 1.5 K/mcL (0.0-1.3) H 10/18/17 04:08 Nucleated RBCs/100 WBC 0.2 /100 WBC (0) H 10/16/17 03:43 ABG pH 7.49 pH Units (7.32-7.45) H 10/17/17 15:27 ABG pO2 63 mmHg (85-104) L 10/17/17 15:27 ABG Total CO2 28 mEq/L (20-26) H 10/17/17 15:27 ABG O2 Saturation 94 % (95-98) L 10/17/17 15:27 Sodium 129 mEq/L (136-145) L 10/18/17 04:08 Potassium 3.4 mEq/L (3.5-5.1) L 10/18/17 04:08 Chloride 93 mEq/L (98-107) L 10/18/17 04:08 Glucose 220 mg/dL (70-105) H 10/18/17 04:08 POC Glucose 287 (58-89) H 10/18/17 06:33 Hemoglobin A1c 5.7 % (-5.6) H 10/18/17 04:08 Calculated Osmolality 276 (280-300) L 10/18/17 04:08 Calcium 8.2 mg/dL (8.6-10.3) L 10/18/17 04:08 ALT 6 Units/L (7-52) L 10/18/17 04:08 Serum Total Protein 5.9 g/dL (6.4-8.9) L 10/18/17 04:08 Albumin 3.2 g/dL (3.5-5.7) L 10/18/17 04:08 - VTE Documentation of Mechanical Device: Intermittent pneumatic compression device Consult Discharge Plan - Plan Referrals: Betty Orteag PAC [Physician Hogshead Stock Clerk] - 10/28/17 2:15 pm Skip John Jr, MD [Partnered Physician] - 01/16/18 11:30 am ([facility] [place] [id number] ) NONE,PCP [Primary Care Provider] -
[2017-10-18] MEDS: D5% in 0.45% NACL w KCl 20 MEQ/1,000 ML MLS IVC SCH ×2 (09:21→17:34)
[2017-10-18] MEDS: Aspirin 81 MG TAB.CHEW PO SCH (09:24)
[2017-10-18] MEDS: Insulin LISPRO 300 UNITS/3 ML VIAL SQ SCH ×4 (09:24→23:38)
[2017-10-18] MEDS: Pantoprazole 40 MG VIAL IVP SCH (09:24)
--- NOTE | 2017-10-18 10:26 | Pulmonology Progress Note ---
Date of Encounter: 10/18/17 Time of Encounter: 07:35 Assessment and Plan (1) Pneumonia Current Visit: Yes Status: Suspected Patient suspect could have aspiration pneumonia and she is covered with antibiotics. Continue monitoring Qualifiers: Pneumonia type: due to unspecified organism Laterality: right Lung location: lower lobe of lung Qualified Code(s): J18.1 - Lobar pneumonia, unspecified organism (2) Airway clearance impairment Current Visit: Yes Status: Acute Patient has a stronger cough at this time and able to maintain an airway and with gentle hydration as well as chest physical therapy and airway clearance with hygiene, and hoping this is will not deteriorate further. We will monitor her in ICU for another 24 hours due to high risk this could deteriorate especially with her recent surgery and airway complication would be serious. Physical therapy also be important (3) Status post cervical spinal fusion Current Visit: Yes Status: Acute Follow-up from orthopedic/spine surgeon. DVT prophylaxis. Subjective Principal diagnosis: Cervical myelopathy, status post corpectomy and cervical fusion Interval history: Patient is having stronger cough and able to maintain an airway. She is not requiring frequent suctioning at this time. Objective PUL Vital signs: Last Vital Signs Temp 99.9 F H 10/18/17 08:42 Pulse 98 10/18/17 10:00 Resp 18 10/18/17 10:00 BP 136/64 10/18/17 10:00 Pulse Ox 99 10/18/17 10:00 General appearance: no acute distress, lethargic Eyes: nonicteric ENT: oropharynx dry Neck: supple Effort: normal Auscultation: bilateral: diminished breath sounds Percussion: bilateral: not dull Cardiovascular: regular rate and rhythm Gastrointestinal: normoactive bowel sounds, non-distended Extremities: no cyanosis non-focal exam depressed Results - Laboratory Findings CBC and BMP: 10/18/17 04:08 10/18/17 04:08 ABG ABG pH 7.49 pH Units (7.32-7.45) H 10/17/17 15:27 ABG pCO2 35 mmHg (35-45) 10/17/17 15:27 ABG pO2 63 mmHg (85-104) L 10/17/17 15:27 ABG O2 Saturation 94 % (95-98) L 10/17/17 15:27 Abnormal lab findings: Abnormal lab results RBC 3.69 M/mcL (3.82-4.97) L 10/18/17 04:08 Hgb 9.5 g/dL (11.5-15.4) L 10/18/17 04:08 Hct 28.7 % (35.3-44.9) L 10/18/17 04:08 MCV 77.8 fL (83.0-100.0) L 10/18/17 04:08 MCH 25.7 pg (28.0-33.3) L 10/18/17 04:08 Monocytes # 1.5 K/mcL (0.0-1.3) H 10/18/17 04:08 Nucleated RBCs/100 WBC 0.2 /100 WBC (0) H 10/16/17 03:43 ABG pH 7.49 pH Units (7.32-7.45) H 10/17/17 15:27 ABG pO2 63 mmHg (85-104) L 10/17/17 15:27 ABG Total CO2 28 mEq/L (20-26) H 10/17/17 15:27 ABG O2 Saturation 94 % (95-98) L 10/17/17 15:27 Sodium 129 mEq/L (136-145) L 10/18/17 04:08 Potassium 3.4 mEq/L (3.5-5.1) L 10/18/17 04:08 Chloride 93 mEq/L (98-107) L 10/18/17 04:08 Glucose 220 mg/dL (70-105) H 10/18/17 04:08 POC Glucose 287 (58-89) H 10/18/17 06:33 Hemoglobin A1c 5.7 % (-5.6) H 10/18/17 04:08 Calculated Osmolality 276 (280-300) L 10/18/17 04:08 Calcium 8.2 mg/dL (8.6-10.3) L 10/18/17 04:08 ALT 6 Units/L (7-52) L 10/18/17 04:08 Serum Total Protein 5.9 g/dL (6.4-8.9) L 10/18/17 04:08 Albumin 3.2 g/dL (3.5-5.7) L 10/18/17 04:08 - Microbiology Findings Microbiology Findings: Microbiology, Last 48 Hours 01/19/18 16:14 Legionella Antigen - Final Urine,Catheterized Streptococcus pneumoniae Antigen (M - Final - Clinical Findings Intake & Output: Intake & Output 10/17/17 10/18/17 10/18/17 23:59 07:59 15:59 Intake Total 550 / 550 250 / 250 Output Total 1900 / 1900 100 / 100 150 / 150 Balance -1350 / -1350 150 / 150 -150 / -150 Weight 59.8 kg - VTE Documentation of Mechanical Device: Intermittent pneumatic compression device Consult Discharge Plan - Plan Referrals: Betty Ortega PAC [Physician Sales Effectiveness Manager] - 10/28/17 2:15 pm Skip John Jr, MD [Partnered Physician] - 01/16/18 11:30 am ([facility] [address] [address] ) NONE,PCP [Primary Care Provider] -
[2017-10-18] MEDS: *HR* Heparin 5,000 UNIT/ML VIAL SQ SCH ×3 (13:10→20:12)
[2017-10-18] MEDS: Nystatin Cream 15 GM TUBE TP SCH ×3 (13:12→20:08)
[2017-10-18] MEDS ORDERED: Insulin LISPRO 300 UNITS/3 ML VIAL SQ SCH (18:00)
[2017-10-18] MEDS ORDERED: Acetaminophen IV 1,000 MG/100 ML INFUS..BTL IVPB ONE (23:35)
[2017-10-19] MEDS: D5% in 0.45% NACL w KCl 20 MEQ/1,000 ML MLS IVC SCH ×3 (00:03→18:26)
[2017-10-19] MEDS: Piperacillin/Tazobactam 3.375 GM/200 ML BAG IVPB SCH ×3 (03:19→17:50)
[2017-10-19] MEDS: Ipratropium/Albuterol Neb 3 ML IH SCH ×6 (03:59→23:37)
[2017-10-19 04:18] LABS: Eosinophils % 0.8 %; Hematocrit 21.6 % (35.3-44.9); Immature Granulocytes % 0.3 % (0-4); Lymphocytes # 0.4 K/mcL (0.6-4.6); Lymphocytes % 10.6 %; Mean Corpuscular HGB Conc 33.3 g/dL (31.6-35.5); Mean Corpuscular Hemoglobin 25.8 pg (28.0-33.3); Mean Corpuscular Volume 77.4 fL (83.0-100.0); Mean Platelet Volume 10.3 fL (9.4-12.4); Monocytes # 0.8 K/mcL (0.0-1.3); Monocytes % 21.3 %; Neutrophils # 2.5 K/mcL (1.6-8.9); Nucleated Red Blood Cells 0.8 /100 WBC (0); Platelet Count 224 K/mcL (140-400); Red Blood Count 2.79 M/mcL (3.82-4.97); Red Cell Distribution Width 13.6 % (11.5-14.5)
[2017-10-19 04:27] LABS: Alanine Aminotransferase 8 Units/L (7-52); Albumin 2.6 g/dL (3.5-5.7); Albumin/Globulin Ratio 0.9 (1.1-2.2); Alkaline Phosphatase 71 Units/L (34-104); Aspartate Amino Transferase 16 Units/L (13-39); BUN/Creatinine Ratio 20 (6-26); Bilirubin,Total 0.4 mg/dL (0.3-1.0); Blood Urea Nitrogen 12 mg/dL (8-23); Calcium 7.8 mg/dL (8.6-10.3); Carbon Dioxide 26 mEq/L (23-29); Chloride 96 mEq/L (98-107); Globulin 2.8 g/dL (2.4-3.5); Glucose 217 mg/dL (70-105); Hemoglobin 7.2 g/dL (11.5-15.4); Osmolality,Calculated 280 (280-300); Potassium 3.3 mEq/L (3.5-5.1); Sodium 132 mEq/L (136-145); Total Protein 5.4 g/dL (6.4-8.9); eGFR For African Americans > 60 (> 60); eGFR For Non-African Americans > 60 (> 60)
[2017-10-19 05:07] LABS: Platelet Estimate Normal (Normal)
[2017-10-19] MEDS: *HR* Heparin 5,000 UNIT/ML VIAL SQ SCH ×3 (05:25→20:13)
[2017-10-19] MEDS: Insulin LISPRO 300 UNITS/3 ML VIAL SQ SCH ×4 (05:27→23:37)
[2017-10-19] MEDS: Aspirin 81 MG TAB.CHEW PO SCH (07:42)
--- NOTE | 2017-10-19 09:34 | Pulmonology Progress Note ---
<Bob Benavides - Last Filed: 10/19/17 09:31> Date of Encounter: 10/19/17 Time of Encounter: 09:30 Assessment and Plan (1) Pneumonia Current Visit: Yes Status: Suspected Imaging demonstrated possible pneumonia. -Inability to clear airway secretions. -Blood and sputum cultures have been ordered. -DuoNeb's every 4 hours. -Zosyn 3.375 g every 8 hours. -If patient's respiratory status declines and needs intubated; must be done by anesthesiology due to recent cervical fusion. Qualifiers: Laterality: right Lung location: lower lobe of lung Qualified Code(s): J18.1 - Lobar pneumonia, unspecified organism (2) HTN (hypertension) Current Visit: Yes Status: Chronic Patient is currently hypotensive. By mouth meds of been held. Qualifiers: Hypertension type: essential hypertension Qualified Code(s): I10 - Essential (primary) hypertension (3) HLD (hyperlipidemia) Current Visit: Yes Status: Chronic -History of chronic hyperlipidemia. -Lipid panel scheduled for a.m. labs. -Normally takes Zocor; by mouth meds have been held. Qualifiers: Hyperlipidemia type: pure hypercholesterolemia Qualified Code(s): E78.00 - Pure hypercholesterolemia, unspecified; E78.0 - Pure hypercholesterolemia (4) Diabetes Current Visit: Yes Status: Chronic Patient has known history of diabetes. Accu-Cheks every 4. Hemoglobin A1c and a.m. labs. Qualifiers: Diabetes mellitus type: type 2 Diabetes mellitus complication status: with unspecified complications Diabetes mellitus tank terminal gauger insulin use: without retirement use Qualified Code(s): E11.8 - Type 2 diabetes mellitus with unspecified complications (5) Airway clearance impairment Current Visit: Yes Status: Acute Patient has noted acute airway clearance impairment. -Patient is on high risk for aspiration. -Nothing by mouth. -Airway suctioning ordered. -By mouth medications well. -Patient may need bronchoscopy. (6) DVT prophylaxis Current Visit: Yes Status: Acute Bilateral SCDs for DVT prophylaxis. Monitor for signs of bleeding. Subjective Principal diagnosis: Cervical myelopathy, status post corpectomy and cervical fusion Interval history: Patient was seen and examined at bedside this morning. Currently on BiPAP; does not appear to be in respiratory distress at this time. Objective PUL Vital signs: Last Vital Signs Temp 98.6 F 10/19/17 07:20 Pulse 77 10/19/17 08:00 Resp 12 10/19/17 08:00 BP 121/59 10/19/17 08:00 Pulse Ox 100 10/19/17 08:00 Eyes: nonicteric ENT: oropharynx moist Effort: normal Auscultation: bilateral: wheezes, rales, rhonchi Cardiovascular: regular rate and rhythm Integumentary: normal normal mental status Results - Laboratory Findings CBC and BMP: 10/19/17 03:47 10/19/17 03:47 ABG ABG pH 7.49 pH Units (7.32-7.45) H 10/17/17 15:27 ABG pCO2 35 mmHg (35-45) 10/17/17 15:27 ABG pO2 63 mmHg (85-104) L 10/17/17 15:27 ABG O2 Saturation 94 % (95-98) L 10/17/17 15:27 Abnormal lab findings: Abnormal lab results WBC 3.7 K/mcL (4.3-11.1) L D 10/19/17 03:47 RBC 2.79 M/mcL (3.82-4.97) L 10/19/17 03:47 Hgb 7.2 g/dL (11.5-15.4) L D 10/19/17 03:47 Hct 21.6 % (35.3-44.9) L 10/19/17 03:47 MCV 77.4 fL (83.0-100.0) L 10/19/17 03:47 MCH 25.8 pg (28.0-33.3) L 10/19/17 03:47 Lymphocytes # 0.4 K/mcL (0.6-4.6) L 10/19/17 03:47 Nucleated RBCs/100 WBC 0.8 /100 WBC (0) H 10/19/17 03:47 ABG pH 7.49 pH Units (7.32-7.45) H 10/17/17 15:27 ABG pO2 63 mmHg (85-104) L 10/17/17 15:27 ABG Total CO2 28 mEq/L (20-26) H 10/17/17 15:27 ABG O2 Saturation 94 % (95-98) L 10/17/17 15:27 Sodium 132 mEq/L (136-145) L 10/19/17 03:47 Potassium 3.3 mEq/L (3.5-5.1) L 10/19/17 03:47 Chloride 96 mEq/L (98-107) L 10/19/17 03:47 Glucose 217 mg/dL (70-105) H 10/19/17 03:47 POC Glucose 255 (58-89) H 10/18/17 23:29 Hemoglobin A1c 5.7 % (-5.6) H 10/18/17 04:08 Calcium 7.8 mg/dL (8.6-10.3) L 10/19/17 03:47 Serum Total Protein 5.4 g/dL (6.4-8.9) L 10/19/17 03:47 Albumin 2.6 g/dL (3.5-5.7) L 10/19/17 03:47 Albumin/Globulin Ratio 0.9 (1.1-2.2) L 10/19/17 03:47 - Microbiology Findings Microbiology Findings: Microbiology, Last 48 Hours 10/17/17 17:19 Blood Culture - Preliminary Peripheral Venipuncture No growth. 10/17/17 17:19 Blood Culture - Preliminary Peripheral Venipuncture No growth. 10/17/17 16:14 Legionella Antigen - Final Urine,Catheterized Streptococcus pneumoniae Antigen (M - Final - Clinical Findings Intake & Output: Intake & Output 10/18/17 10/19/17 10/19/17 23:59 07:59 15:59 Intake Total 1200 / 1200 1300 / 1300 Output Total 150 / 150 1175 / 1175 Balance 1050 / 1050 125 / 125 Weight 62 kg - VTE Documentation of Mechanical Device: Intermittent pneumatic compression device Consult Discharge Plan - Plan Referrals: Betty Ortega PAC [Physician Global Risk Management Director] - 10/28/17 2:15 pm Skip John Jr, MD [Partnered Physician] - 01/16/18 11:30 am ([facility] [address] [address] ) NONE,PCP [Primary Care Provider] - <Yassine Benitez M - Last Filed: 10/19/17 10:01> Date of Encounter: 10/19/17 Assessment and Plan (1) Pneumonia Current Visit: Yes Status: Suspected Qualifiers: Laterality: right Lung location: lower lobe of lung Qualified Code(s): J18.1 - Lobar pneumonia, unspecified organism (2) Airway clearance impairment Current Visit: Yes Status: Acute (3) Status post cervical spinal fusion Current Visit: Yes Status: Acute Objective PUL Vital signs: Last Vital Signs Temp 98.6 F 10/19/17 07:20 Pulse 77 10/19/17 08:00 Resp 12 10/19/17 08:00 BP 121/59 10/19/17 08:00 Pulse Ox 100 10/19/17 08:00 Results - Laboratory Findings CBC and BMP: 10/19/17 03:47 10/19/17 03:47 ABG ABG pH 7.49 pH Units (7.32-7.45) H 10/17/17 15:27 ABG pCO2 35 mmHg (35-45) 10/17/17 15:27 ABG pO2 63 mmHg (85-104) L 10/17/17 15:27 ABG O2 Saturation 94 % (95-98) L 10/17/17 15:27 Abnormal lab findings: Abnormal lab results WBC 3.7 K/mcL (4.3-11.1) L D 10/19/17 03:47 RBC 2.79 M/mcL (3.82-4.97) L 10/19/17 03:47 Hgb 7.2 g/dL (11.5-15.4) L D 10/19/17 03:47 Hct 21.6 % (35.3-44.9) L 10/19/17 03:47 MCV 77.4 fL (83.0-100.0) L 10/19/17 03:47 MCH 25.8 pg (28.0-33.3) L 10/19/17 03:47 Lymphocytes # 0.4 K/mcL (0.6-4.6) L 10/19/17 03:47 Nucleated RBCs/100 WBC 0.8 /100 WBC (0) H 10/19/17 03:47 ABG pH 7.49 pH Units (7.32-7.45) H 10/17/17 15:27 ABG pO2 63 mmHg (85-104) L 10/17/17 15:27 ABG Total CO2 28 mEq/L (20-26) H 10/17/17 15:27 ABG O2 Saturation 94 % (95-98) L 10/17/17 15:27 Sodium 132 mEq/L (136-145) L 10/19/17 03:47 Potassium 3.3 mEq/L (3.5-5.1) L 10/19/17 03:47 Chloride 96 mEq/L (98-107) L 10/19/17 03:47 Glucose 217 mg/dL (70-105) H 10/19/17 03:47 POC Glucose 255 (58-89) H 10/18/17 23:29 Hemoglobin A1c 5.7 % (-5.6) H 10/18/17 04:08 Calcium 7.8 mg/dL (8.6-10.3) L 10/19/17 03:47 Serum Total Protein 5.4 g/dL (6.4-8.9) L 10/19/17 03:47 Albumin 2.6 g/dL (3.5-5.7) L 10/19/17 03:47 Albumin/Globulin Ratio 0.9 (1.1-2.2) L 10/19/17 03:47 - Microbiology Findings Microbiology Findings: Microbiology, Last 48 Hours 10/17/17 17:19 Blood Culture - Preliminary Peripheral Venipuncture No growth. 10/17/17 17:19 Blood Culture - Preliminary Peripheral Venipuncture No growth. 10/17/17 16:14 Legionella Antigen - Final Urine,Catheterized Streptococcus pneumoniae Antigen (M - Final - Clinical Findings Intake & Output: Intake & Output 10/18/17 10/19/17 10/19/17 23:59 07:59 15:59 Intake Total 1200 / 1200 1300 / 1300 Output Total 150 / 150 1175 / 1175 Balance 1050 / 1050 125 / 125 Weight 62 kg - Attending Attestation I examined this patient and my medical decision-making was reviewed with the Resident Physician. I agree with the documented findings, disposition and treatment plan as described except to the extent set forth below. Patient seen and examined. Labs, radiology, chart personally reviewed. Agree with resident's history and physical, assessment, plan with following comments: LIFE TRAINER: Patient follows commands, patient is more awake and follows commands. Pulmonary: Acceptable oxygenation and ventilation. Noninvasive ventilation as needed. Patient has cough after chest physical therapy and she remained at risk of aspiration and waiting for speech evaluation. Cardiovascular: stable GI: Nutrition per dietary and GI prophylaxis per routine Heme: DVT prophylaxis per routine ID: Continue antibiotics and plan to de-escalation Renal; urine out put and renal funtion reviewed. Replace electrolytes Endorcine: blood glucose is monitored Lines: all lines checked and no evidence of infections Skin: skin care to prevent pressure ulcers per nursing routine care Continue monitoring at this time
[2017-10-19] MEDS: Nystatin Cream 15 GM TUBE TP SCH ×3 (10:15→20:14)
[2017-10-19] MEDS: Pantoprazole 40 MG VIAL IVP SCH (10:15)
--- NOTE | 2017-10-19 15:29 | Orthopedics Progress Note ---
Date of Encounter: 10/19/17 Time of Encounter: 15:29 Subjective Principal diagnosis: Cervical myelopathy, status post corpectomy and cervical fusion Interval history: S: No acute issues overnight. Mentation improved today. O: AFVSS, responds to questions Inc c/d/i Nonambulatory, at baseline neuro status of UE/LE A/P 67 yo F s/p ACDF C3-6 with C4 corpectomy with aspiration pneumonia -Med management per hospitalist and pulmonary -Mobilize as able -Pain control Objective Vital signs: Vital Signs Temp Pulse Resp BP Pulse Ox 10/19/17 15:00 86 10/19/17 14:00 84 13 133/57 100 10/19/17 12:00 81 19 133/60 100 10/19/17 11:00 99.2 F 81 18 133/63 99 10/19/17 10:54 15 100 10/19/17 10:00 83 15 118/56 100 10/19/17 09:00 78 10 126/54 100 10/19/17 08:00 77 12 121/59 100 10/19/17 07:59 18 121/59 100 10/19/17 07:49 76 10/19/17 07:20 98.6 F 10/19/17 07:00 76 16 133/58 100 10/19/17 06:00 81 20 124/57 100 10/19/17 05:00 83 20 138/60 100 10/19/17 04:00 78 14 122/56 100 10/19/17 03:59 20 107/54 100 10/19/17 03:30 99.0 F 10/19/17 03:00 77 22 107/54 99 10/19/17 02:00 85 26 122/52 97 10/19/17 01:00 84 20 128/59 98 10/19/17 00:00 101.0 F H 99 24 116/57 94 10/18/17 23:55 36 134/61 96 10/18/17 23:00 89 22 134/61 98 10/18/17 22:00 97 24 126/85 99 10/18/17 21:00 95 24 130/67 100 10/18/17 20:00 104 22 151/67 98 10/18/17 19:46 27 131/65 100 10/18/17 19:00 99 20 131/65 98 10/18/17 18:40 101.1 F H 10/18/17 18:00 101 22 141/67 99 10/18/17 17:00 102 22 136/66 99 10/18/17 15:58 100.2 F H 10/18/17 15:42 18 141/67 94 10/18/17 15:37 102 Intake and Output 10/18/17 10/19/17 10/19/17 23:59 07:59 15:59 Intake Total 1200 / 1200 1500 / 1500 1000 / 1000 Output Total 150 / 150 1175 / 1175 750 / 750 Balance 1050 / 1050 325 / 325 250 / 250 Intake: IV Fluids 1200 / 1200 1500 / 1500 1000 / 1000 KCl 20mEq IN D5%-0.45 NACL 20 1000 / 1000 1000 / 1000 1000 / 1000 meq In 1,000 ml @ 125 mls/hr IVC .Q8H [facility] Rx#:[id number] Ofirmev 1,000 mg/100 ml 1,000 100 / 100 mg In 100 ml @ 400 mls/hr IVPB ONCE ONE Rx#:[id number] Zosyn Premix 3.375 GM/200 ML 3. 200 / 200 400 / 400 375 gm In 200 ml @ 50 mls/hr IVPB Q8H [facility] Rx#:[id number] Output: Catheter 150 / 150 1175 / 1175 750 / 750 Other: Stool Size Small Stool Consistency loose Stool Color Brown # Bowel Movements 1 Weight 62 kg Blood Glucose* 279 255 256 Patient Weight 10/19/17 23:59 Weight 62 kg - Labs CBC & BMP: 10/19/17 03:47 10/19/17 03:47 Labs: Abnormal lab results WBC 3.7 K/mcL (4.3-11.1) L D 10/19/17 03:47 RBC 2.79 M/mcL (3.82-4.97) L 10/19/17 03:47 Hgb 7.2 g/dL (11.5-15.4) L D 10/19/17 03:47 Hct 21.6 % (35.3-44.9) L 10/19/17 03:47 MCV 77.4 fL (83.0-100.0) L 10/19/17 03:47 MCH 25.8 pg (28.0-33.3) L 10/19/17 03:47 Lymphocytes # 0.4 K/mcL (0.6-4.6) L 10/19/17 03:47 Nucleated RBCs/100 WBC 0.8 /100 WBC (0) H 10/19/17 03:47 ABG pH 7.49 pH Units (7.32-7.45) H 10/17/17 15:27 ABG pO2 63 mmHg (85-104) L 10/17/17 15:27 ABG Total CO2 28 mEq/L (20-26) H 10/17/17 15:27 ABG O2 Saturation 94 % (95-98) L 10/17/17 15:27 Sodium 132 mEq/L (136-145) L 10/19/17 03:47 Potassium 3.3 mEq/L (3.5-5.1) L 10/19/17 03:47 Chloride 96 mEq/L (98-107) L 10/19/17 03:47 Glucose 217 mg/dL (70-105) H 10/19/17 03:47 POC Glucose 256 (58-89) H 10/19/17 11:17 Hemoglobin A1c 5.7 % (-5.6) H 10/18/17 04:08 Calcium 7.8 mg/dL (8.6-10.3) L 10/19/17 03:47 Serum Total Protein 5.4 g/dL (6.4-8.9) L 10/19/17 03:47 Albumin 2.6 g/dL (3.5-5.7) L 10/19/17 03:47 Albumin/Globulin Ratio 0.9 (1.1-2.2) L 10/19/17 03:47 - VTE Documentation of Mechanical Device: Intermittent pneumatic compression device Consult Discharge Plan - Plan Referrals: Betty Ortega PAC [Physician Actuarial Associate] - 10/28/17 2:15 pm Skip John Jr, MD [Partnered Physician] - 01/16/18 11:30 am ([facility] [address] [address] ) NONE,PCP [Primary Care Provider] -
[2017-10-19] MEDS ORDERED: Acetaminophen IV 1,000 MG/100 ML INFUS..BTL IVPB ONE (20:44)
[2017-10-20] MEDS: D5% in 0.45% NACL w KCl 20 MEQ/1,000 ML MLS IVC SCH ×4 (02:23→20:26)
[2017-10-20 02:55] LABS: Basophils % 0.2 %; Eosinophils % 0.3 %; Hematocrit 24.3 % (35.3-44.9); Hemoglobin 7.8 g/dL (11.5-15.4); Immature Granulocytes % 0.5 % (0-4); Lymphocytes # 0.5 K/mcL (0.6-4.6); Lymphocytes % 8.9 %; Mean Corpuscular HGB Conc 32.1 g/dL (31.6-35.5); Mean Corpuscular Hemoglobin 25.5 pg (28.0-33.3); Mean Corpuscular Volume 79.4 fL (83.0-100.0); Mean Platelet Volume 10.1 fL (9.4-12.4); Monocytes % 16.2 %; Platelet Count 291 K/mcL (140-400); Red Blood Count 3.06 M/mcL (3.82-4.97); Red Cell Distribution Width 14.3 % (11.5-14.5); Segmented Neutrophils % 73.9 %
[2017-10-20 02:59] LABS: Neutrophils # 4.4 K/mcL (1.6-8.9)
[2017-10-20 03:11] LABS: Alanine Aminotransferase 16 Units/L (7-52); Albumin 2.7 g/dL (3.5-5.7); Alkaline Phosphatase 108 Units/L (34-104); Aspartate Amino Transferase 30 Units/L (13-39); BUN/Creatinine Ratio 12 (6-26); Bilirubin,Total 0.3 mg/dL (0.3-1.0); Blood Urea Nitrogen 8 mg/dL (8-23); Calcium 7.9 mg/dL (8.6-10.3); Carbon Dioxide 23 mEq/L (23-29); Chloride 105 mEq/L (98-107); Globulin 2.6 g/dL (2.4-3.5); Glucose 213 mg/dL (70-105); Osmolality,Calculated 283 (280-300); Potassium 4.1 mEq/L (3.5-5.1); Sodium 134 mEq/L (136-145); Total Protein 5.3 g/dL (6.4-8.9); eGFR For African Americans > 60 (> 60); eGFR For Non-African Americans > 60 (> 60)
[2017-10-20] MEDS: Ipratropium/Albuterol Neb 3 ML IH SCH ×6 (03:46→23:53)
[2017-10-20] MEDS: Piperacillin/Tazobactam 3.375 GM/200 ML BAG IVPB SCH ×3 (04:49→18:19)
[2017-10-20] MEDS: *HR* Heparin 5,000 UNIT/ML VIAL SQ SCH ×3 (04:54→20:23)
[2017-10-20] MEDS: Insulin LISPRO 300 UNITS/3 ML VIAL SQ SCH ×4 (04:58→23:10)
--- NOTE | 2017-10-20 06:56 | Pulmonology Progress Note ---
Date of Encounter: 10/20/17 Time of Encounter: 06:56 Assessment and Plan (1) Pneumonia Current Visit: Yes Status: Suspected Continue cont zosyn which can be deescalated to augmentin by mouth when taking PO for total of 7 days based upon clinical course Qualifiers: Laterality: right Lung location: lower lobe of lung Qualified Code(s): J18.1 - Lobar pneumonia, unspecified organism (2) Hypoxia Current Visit: Yes Status: Acute This is resolving and is secondary to atelectasis status post surgery along with suspected impairment of diaphragmatic function to some degree leading to worsening atelectasis VQ mismatching. Additionally she has significant secretions which is a result of underlying pneumonia and suspected cardiogenic pulmonary edema. We will continue to supplement her with noninvasive positive pressure ventilation as needed specifically overnight with plan for nasal cannula during the day this can be reevaluated daily and I suspect that she will not require noninvasive positive pressure ventilation for much longer (3) Diabetes Current Visit: Yes Status: Chronic Blood sugar remains elevated today we will adjust her sliding scale insulin regimen and add long-acting insulin once taking by mouth Qualifiers: Diabetes mellitus type: type 2 Diabetes mellitus complication status: with unspecified complications Diabetes mellitus fci insulin use: without adjunct faculty for medical terminology use Qualified Code(s): E11.8 - Type 2 diabetes mellitus with unspecified complications (4) Airway clearance impairment Current Visit: Yes Status: Acute This is is also improving continue suctioning per nursing staff patient mandible to do so suctioning on her own if her muscle strength permits. (5) Status post cervical spinal fusion Current Visit: Yes Status: Acute This is being managed by orthopedics Subjective Principal diagnosis: Cervical myelopathy, status post corpectomy and cervical fusion Interval history: Patient says she is starting to feel better. Secretions have decreased significantly. She denies any significant pain from her neck and has endorsed increase in appetite. Otherwise uneventful night she was maintained on BiPAP overnight but oxygen saturation is excellent and has been able to tolerate nasal cannula for several hours at a time. The frequency of suctioning is also decreased Objective PUL Vital signs: Last Vital Signs Temp 98.1 F 10/20/17 04:42 Pulse 90 10/20/17 06:00 Resp 21 10/20/17 06:00 BP 107/62 10/20/17 04:00 Pulse Ox 100 10/20/17 06:00 General appearance: no acute distress Eyes: nonicteric ENT: oropharynx dry Neck: other (Surgical dressing is clean dry and intact) Effort: normal Auscultation: bilateral: diminished breath sounds Cardiovascular: regular rate and rhythm Gastrointestinal: normoactive bowel sounds, soft, non-tender Integumentary: normal Extremities: other (Trace bilateral lower extremity edema) normal mental status, other (She is able to move all extremities clearly weak in the upper extremities but does have symmetric muscle strength which is about3 +/5 b/l ) mood appropriate Results - Laboratory Findings CBC and BMP: 10/20/17 02:39 10/20/17 02:39 ABG ABG pH 7.49 pH Units (7.32-7.45) H 10/17/17 15:27 ABG pCO2 35 mmHg (35-45) 10/17/17 15:27 ABG pO2 63 mmHg (85-104) L 10/17/17 15:27 ABG O2 Saturation 94 % (95-98) L 10/17/17 15:27 Abnormal lab findings: Abnormal lab results RBC 3.06 M/mcL (3.82-4.97) L 10/20/17 02:39 Hgb 7.8 g/dL (11.5-15.4) L 10/20/17 02:39 Hct 24.3 % (35.3-44.9) L 10/20/17 02:39 MCV 79.4 fL (83.0-100.0) L 10/20/17 02:39 MCH 25.5 pg (28.0-33.3) L 10/20/17 02:39 Lymphocytes # 0.5 K/mcL (0.6-4.6) L 10/20/17 02:39 Nucleated RBCs/100 WBC 0.8 /100 WBC (0) H 10/19/17 03:47 ABG pH 7.49 pH Units (7.32-7.45) H 10/17/17 15:27 ABG pO2 63 mmHg (85-104) L 10/17/17 15:27 ABG Total CO2 28 mEq/L (20-26) H 10/17/17 15:27 ABG O2 Saturation 94 % (95-98) L 10/17/17 15:27 Sodium 134 mEq/L (136-145) L 10/20/17 02:39 Glucose 213 mg/dL (70-105) H 10/20/17 02:39 POC Glucose 228 (58-89) H 10/20/17 04:57 Hemoglobin A1c 5.7 % (-5.6) H 10/18/17 04:08 Calcium 7.9 mg/dL (8.6-10.3) L 10/20/17 02:39 Alkaline Phosphatase 108 Units/L (34-104) H 10/20/17 02:39 Serum Total Protein 5.3 g/dL (6.4-8.9) L 10/20/17 02:39 Albumin 2.7 g/dL (3.5-5.7) L 10/20/17 02:39 Albumin/Globulin Ratio 1.0 (1.1-2.2) L 10/20/17 02:39 - Microbiology Findings Microbiology Findings: Microbiology, Last 48 Hours 10/17/17 17:19 Blood Culture - Preliminary Peripheral Venipuncture No growth. 10/17/17 17:19 Blood Culture - Preliminary Peripheral Venipuncture No growth. - Clinical Findings Intake & Output: Intake & Output 10/19/17 10/19/17 10/20/17 15:59 23:59 07:59 Intake Total 1300 / 1300 1500 / 1500 1000 / 1000 Output Total 750 / 750 825 / 825 275 / 275 Balance 550 / 550 675 / 675 725 / 725 Weight 64 kg - VTE Documentation of Mechanical Device: Intermittent pneumatic compression device Consult Discharge Plan - Plan Referrals: Betty Ortega PAC [Physician Application Support Lead] - 10/28/17 2:15 pm Skip John Jr, MD [Partnered Physician] - 01/16/18 11:30 am ([facility] [address] [address] ) NONE,PCP [Primary Care Provider] -
[2017-10-20] MEDS: Aspirin 81 MG TAB.CHEW PO SCH (08:02)
[2017-10-20] MEDS: Pantoprazole 40 MG VIAL IVP SCH (08:53)
[2017-10-20] MEDS: Nystatin Cream 15 GM TUBE TP SCH ×3 (08:53→20:25)
[2017-10-20 09:35] LABS: Magnesium 1.5 mg/dL (1.6-2.6)
[2017-10-20] MEDS ORDERED: Furosemide 20 MG/2 ML VIAL IVP ONE (11:15)
--- NOTE | 2017-10-20 12:21 | Spine Progress Note ---
Date of Encounter: 10/20/17 Time of Encounter: 12:18 Subjective Principal diagnosis: Cervical myelopathy, status post corpectomy and cervical fusion Interval history: The patient is improving requiring much less suctioning compared to 3 days ago. Her mentation is essentially baseline and she is communicating verbally. Afebrile vital signs are stable. Incision is clean dry and intact. She is still nonambulatory and has impairments in upper extremity function which are baseline. Assessment :stable status post corpectomy C4, cervical fusion C3- C6. Complicated by aspiration pneumonia. Plan mobilize ,continue analgesics, continue antibiotics per pulmonary and hospitalist services, plan swallow evaluation when she can tolerate, mobilize, discharge planning Objective Vital signs: Vital Signs Temp Pulse Resp BP Pulse Ox 10/20/17 12:00 93 24 112/60 100 10/20/17 11:57 23 100 10/20/17 10:00 91 20 100 10/20/17 08:00 89 23 100/61 100 10/20/17 07:54 100 10/20/17 07:41 21 107/62 100 10/20/17 07:40 89 10/20/17 07:30 98.3 F 10/20/17 06:00 90 21 100 10/20/17 04:42 98.1 F 10/20/17 04:00 93 20 107/62 100 10/20/17 03:46 15 100 10/20/17 02:00 90 18 100 10/20/17 01:00 99.3 F 91 20 97/58 100 10/20/17 00:00 101.8 F H 106 16 100/53 100 10/19/17 23:37 37 143/77 96 10/19/17 22:00 108 28 143/77 95 10/19/17 20:10 98.2 F 10/19/17 20:00 94 30 143/77 100 10/19/17 19:45 25 139/71 95 10/19/17 18:00 93 26 145/70 97 10/19/17 16:03 98.2 F 10/19/17 16:02 18 99 10/19/17 16:00 95 24 132/66 90 10/19/17 15:00 86 10/19/17 14:00 84 13 133/57 100 Intake and Output 01/21/18 01/22/18 01/22/18 23:59 07:59 15:59 Intake Total 1500 / 1500 1600 / 1600 200 / 200 Output Total 825 / 825 350 / 350 Balance 675 / 675 1250 / 1250 200 / 200 Intake: IV Fluids 1500 / 1500 1600 / 1600 200 / 200 KCl 20mEq IN D5%-0.45 NACL 20 1000 / 1000 1600 / 1600 meq In 1,000 ml @ 125 mls/hr IVC .Q8H [facility] Rx#:[id number] Ofirmev 1,000 mg/100 ml 1,000 100 / 100 mg In 100 ml @ 400 mls/hr IVPB ONCE ONE Rx#:[id number] Zosyn Premix 3.375 GM/200 ML 3. 200 / 200 200 / 200 375 gm In 200 ml @ 50 mls/hr IVPB Q8H [facility] Rx#:[id number] Potassium Chloride 10 mEq/100mL 200 / 200 10 meq In 100 ml @ 100 mls/hr IVPB Q1H PRN Rx#:[id number] Output: Catheter 825 / 825 350 / 350 Other: Stool Size Large Large Stool Consistency formed formed Stool Characteristics Normal for Patient Stool Color Brown Brown Weight 64 kg Blood Glucose* 261 Patient Weight 10/20/17 23:59 Weight 64 kg - Labs CBC & BMP: 10/20/17 02:39 10/20/17 02:39 Labs: Abnormal lab results RBC 3.06 M/mcL (3.82-4.97) L 10/20/17 02:39 Hgb 7.8 g/dL (11.5-15.4) L 10/20/17 02:39 Hct 24.3 % (35.3-44.9) L 10/20/17 02:39 MCV 79.4 fL (83.0-100.0) L 10/20/17 02:39 MCH 25.5 pg (28.0-33.3) L 10/20/17 02:39 Lymphocytes # 0.5 K/mcL (0.6-4.6) L 10/20/17 02:39 Nucleated RBCs/100 WBC 0.8 /100 WBC (0) H 10/19/17 03:47 ABG pH 7.49 pH Units (7.32-7.45) H 10/17/17 15:27 ABG pO2 63 mmHg (85-104) L 10/17/17 15:27 ABG Total CO2 28 mEq/L (20-26) H 10/17/17 15:27 ABG O2 Saturation 94 % (95-98) L 10/17/17 15:27 Sodium 134 mEq/L (136-145) L 10/20/17 02:39 Glucose 213 mg/dL (70-105) H 10/20/17 02:39 POC Glucose 175 (58-89) H 10/20/17 11:21 Hemoglobin A1c 5.7 % (-5.6) H 10/18/17 04:08 Calcium 7.9 mg/dL (8.6-10.3) L 10/20/17 02:39 Magnesium 1.5 mg/dL (1.6-2.6) L 10/20/17 02:39 Alkaline Phosphatase 108 Units/L (34-104) H 10/20/17 02:39 Serum Total Protein 5.3 g/dL (6.4-8.9) L 10/20/17 02:39 Albumin 2.7 g/dL (3.5-5.7) L 10/20/17 02:39 Albumin/Globulin Ratio 1.0 (1.1-2.2) L 10/20/17 02:39 Consult Discharge Plan - Plan Referrals: Betty Ortega PAC [Physician Practice Professional] - 10/28/17 2:15 pm Skip John Jr, MD [Partnered Physician] - 01/16/18 11:30 am ([facility] [place] [id number] ) NONE,PCP [Primary Care Provider] -
[2017-10-21] MEDS: Piperacillin/Tazobactam 3.375 GM/200 ML BAG IVPB SCH ×3 (02:18→19:54)
[2017-10-21] MEDS: Ipratropium/Albuterol Neb 3 ML IH SCH ×6 (04:00→23:30)
[2017-10-21] MEDS: Insulin LISPRO 300 UNITS/3 ML VIAL SQ SCH ×3 (05:06→18:53)
[2017-10-21] MEDS: *HR* Heparin 5,000 UNIT/ML VIAL SQ SCH ×3 (05:09→21:51)
[2017-10-21 05:27] LABS: Basophils % 0.5 %; Eosinophils # 0.1 K/mcL (0.0-0.6); Eosinophils % 2.3 %; Hematocrit 25.2 % (35.3-44.9); Hemoglobin 8.1 g/dL (11.5-15.4); Immature Granulocytes % 1.4 % (0-4); Lymphocytes # 0.7 K/mcL (0.6-4.6); Lymphocytes % 16.3 %; Mean Corpuscular HGB Conc 32.1 g/dL (31.6-35.5); Mean Corpuscular Hemoglobin 25.6 pg (28.0-33.3); Mean Corpuscular Volume 79.5 fL (83.0-100.0); Mean Platelet Volume 10.2 fL (9.4-12.4); Monocytes # 0.7 K/mcL (0.0-1.3); Monocytes % 16.5 %; Neutrophils # 2.8 K/mcL (1.6-8.9); Platelet Count 324 K/mcL (140-400); Red Blood Count 3.17 M/mcL (3.82-4.97); Red Cell Distribution Width 14.6 % (11.5-14.5)
[2017-10-21 05:44] LABS: Alanine Aminotransferase 14 Units/L (7-52); Albumin 2.7 g/dL (3.5-5.7); Alkaline Phosphatase 98 Units/L (34-104); Aspartate Amino Transferase 18 Units/L (13-39); BUN/Creatinine Ratio 14 (6-26); Bilirubin,Total 0.4 mg/dL (0.3-1.0); Blood Urea Nitrogen 9 mg/dL (8-23); Calcium 7.9 mg/dL (8.6-10.3); Carbon Dioxide 24 mEq/L (23-29); Chloride 104 mEq/L (98-107); Globulin 2.7 g/dL (2.4-3.5); Glucose 134 mg/dL (70-105); Osmolality,Calculated 285 (280-300); Potassium 3.7 mEq/L (3.5-5.1); Sodium 137 mEq/L (136-145); Total Protein 5.4 g/dL (6.4-8.9); eGFR For African Americans > 60 (> 60); eGFR For Non-African Americans > 60 (> 60)
--- NOTE | 2017-10-21 06:51 | Electrocardiograph Report ---
[address] [place], [place] [address] Test Date: 2017-10-17 Pat Name: Jose Alejandro Marcos Department: 114 Room: [facility] Gender: F Certified Phlebotomy Technician: TANO : 1950 Requested By: Skip John Order Number: [id number] Reading MD: Andrea Red MD Measurements Intervals [place] Rate: 102 P: 49 VT: 147 QRS: -11 QRSD: 86 T: 31 QT: 362 QTc: 421 Interpretive Statements SINUS TACHYCARDIA Electronically Signed On 10-21-2017 6:49:34 EST by Andrea Red MD
--- NOTE | 2017-10-21 07:34 | Pulmonology Progress Note ---
<Savage Goff W - Last Filed: 10/21/17 09:18> Date of Encounter: 10/21/17 Assessment and Plan (1) Pneumonia Current Visit: Yes Status: Suspected Qualifiers: Laterality: right Lung location: lower lobe of lung (2) Hypoxia Current Visit: Yes Status: Acute (3) Diabetes Current Visit: Yes Status: Chronic Qualifiers: Diabetes mellitus type: type 2 Diabetes mellitus complication status: with unspecified complications Diabetes mellitus airplane coverer insulin use: without fci use Qualified Code(s): E11.8 - Type 2 diabetes mellitus with unspecified complications (4) Airway clearance impairment Current Visit: Yes Status: Acute (5) Status post cervical spinal fusion Current Visit: Yes Status: Acute Objective PUL Vital signs: Last Vital Signs Temp 98.0 F 10/21/17 07:10 Pulse 97 10/21/17 07:53 Resp 18 10/21/17 08:08 BP 104/57 10/21/17 07:51 Pulse Ox 100 10/21/17 08:08 Results - Laboratory Findings CBC and BMP: 10/21/17 04:49 10/21/17 04:49 ABG ABG pH 7.49 pH Units (7.32-7.45) H 10/17/17 15:27 ABG pCO2 35 mmHg (35-45) 10/17/17 15:27 ABG pO2 63 mmHg (85-104) L 10/17/17 15:27 ABG O2 Saturation 94 % (95-98) L 10/17/17 15:27 Abnormal lab findings: Abnormal lab results RBC 3.17 M/mcL (3.82-4.97) L 10/21/17 04:49 Hgb 8.1 g/dL (11.5-15.4) L 10/21/17 04:49 Hct 25.2 % (35.3-44.9) L 10/21/17 04:49 MCV 79.5 fL (83.0-100.0) L 10/21/17 04:49 MCH 25.6 pg (28.0-33.3) L 10/21/17 04:49 RDW 14.6 % (11.5-14.5) H 10/21/17 04:49 Nucleated RBCs/100 WBC 0.8 /100 WBC (0) H 10/19/17 03:47 ABG pH 7.49 pH Units (7.32-7.45) H 10/17/17 15:27 ABG pO2 63 mmHg (85-104) L 10/17/17 15:27 ABG Total CO2 28 mEq/L (20-26) H 10/17/17 15:27 ABG O2 Saturation 94 % (95-98) L 10/17/17 15:27 Glucose 134 mg/dL (70-105) H 10/21/17 04:49 POC Glucose 126 (58-89) H 10/21/17 05:04 Hemoglobin A1c 5.7 % (-5.6) H 10/18/17 04:08 Calcium 7.9 mg/dL (8.6-10.3) L 10/21/17 04:49 Magnesium 1.5 mg/dL (1.6-2.6) L 10/20/17 02:39 Serum Total Protein 5.4 g/dL (6.4-8.9) L 10/21/17 04:49 Albumin 2.7 g/dL (3.5-5.7) L 10/21/17 04:49 Albumin/Globulin Ratio 1.0 (1.1-2.2) L 10/21/17 04:49 - Microbiology Findings Microbiology Findings: Microbiology, Last 48 Hours 10/17/17 17:19 Blood Culture - Preliminary Peripheral Venipuncture No growth. 10/17/17 17:19 Blood Culture - Preliminary Peripheral Venipuncture No growth. - Clinical Findings Intake & Output: Intake & Output 10/20/17 10/21/17 10/21/17 23:59 07:59 15:59 Intake Total 400 / 400 200 / 200 Output Total 1200 / 1200 125 / 125 0 / 0 Balance -800 / -800 75 / 75 0 / 0 Weight 62 kg Consult Discharge Plan - Plan Referrals: Betty Ortega PAC [Physician Hose Inspector] - 10/28/17 2:15 pm Skip John Jr, MD [Partnered Physician] - 01/16/18 11:30 am ([facility] [address] [address] ) NONE,PCP [Primary Care Provider] - - Attending Attestation I examined this patient and my medical decision-making was reviewed with the Resident Physician. I agree with the documented findings, disposition and treatment plan as described except to the extent set forth below. We independently had [id number] contact with the patient Patient seen and examined at bedside Labs, radiology, chart personally reviewed. Management was reviewed during multidisciplinary critical care rounds. RESEARCH AND DEVELOPMENT TECHNICIAN: Awake and alert. No new neurological deficits she has chronic UE weakness. At risk for delirium we will cont to monitor this. Pulm: Acute Hypoxic Respiratory failure with aspiration PNA complicated by copious secretions. Improving Cont BDs and ABx. Bipap at night for now Cards: Cardiogenic Pulmonary edema s/p Lasix. BP stable. monitor on tele . FEN-GI: NPO failied Swallow eval will retry in 24-48 hours this likely related to recent neck instrumentation. Renal: NO MYNOR cont to monitor UOP trend electrolytes ID: Treating for Presumed Aspiration PNA for 7 days with Pip/Tazo Heme/Onc: DVT prophylaxis per routine Endo: Glucose Monitored Integ/MSK: Skin Care per routine ICU Nursing Protocol to prevent ulcers. Lines: All lines examined without evidence of infection : Dispo: Stable for transfer to Step Down Unit for ongoing care CODE: Full. <Bob Benavides - Last Filed: 10/21/17 10:46> Date of Encounter: 10/21/17 Time of Encounter: 07:30 Assessment and Plan (1) Pneumonia Current Visit: Yes Status: Suspected Imaging demonstrated finding suggestive of PNA. Blood culture from 10/17/17 was negative 2. Plan: -DuoNeb's every 4 hours. -Zosyn 3.375 g IV Q8. -D/C IV fluids -Repeat swallow eval. -De-escalate antibiotics to Augmentin by mouth once taking by mouth for a total of 7 days based on clinical course. Qualifiers: Laterality: right Lung location: lower lobe of lung (2) Hypoxia Current Visit: Yes Status: Acute Secondary to atelectasis status post surgery, impairment of diaphragmatic function. -Large amount of secretions; patient has had difficulty clearing. -Secretions possibly a result of PNA and cardiogenic pulmonary edema. -If patient's respiratory status declines and needs intubated, must be done by anesthesiology due to recent cervical fusion. -Continue BiPAP at night (3) HTN (hypertension) Current Visit: Yes Status: Chronic Known history of HTN. -Patient is currently hypotensive. -PO meds have been held. Qualifiers: Hypertension type: essential hypertension Qualified Code(s): I10 - Essential (primary) hypertension (4) Diabetes Current Visit: Yes Status: Chronic Glucose this morning was 134. Plan: -Accu-Cheks Q6. -Continue sliding scale insulin. Qualifiers: Diabetes mellitus type: type 2 Diabetes mellitus complication status: with unspecified complications Diabetes mellitus airplane coverer insulin use: without airplane coverer use Qualified Code(s): E11.8 - Type 2 diabetes mellitus with unspecified complications (5) Airway clearance impairment Current Visit: Yes Status: Acute Patient has noted acute airway clearance impairment. -Patient is on high risk for aspiration. -NPO -Suctioning by nursing staff. (6) DVT prophylaxis Current Visit: Yes Status: Acute Bilateral SCDs for DVT prophylaxis. Monitor for signs of bleeding. Subjective Principal diagnosis: Cervical myelopathy, status post corpectomy and cervical fusion Interval history: Patient was seen and examined at bedside this morning. Currently on O2 mask; does not appear to be in respiratory distress at this time. States that she is feeling much better than she did last week. Denies having any cough, shortness of breath, fever, chills, chest pain, or pain around her surgical incision. She is resting comfortably in bed and has no complaints at this time. Objective PUL Vital signs: Last Vital Signs Temp 98.4 F 10/21/17 04:00 Pulse 94 10/21/17 06:00 Resp 16 10/21/17 06:00 BP 99/66 10/21/17 06:00 Pulse Ox 100 10/21/17 06:00 General appearance: no acute distress Eyes: nonicteric ENT: oropharynx moist Neck: supple Effort: normal Auscultation: bilateral: diminished breath sounds Cardiovascular: regular rate and rhythm Integumentary: normal Extremities: no cyanosis, other (Trace bilateral edema) normal mental status mood appropriate, affect normal Results - Laboratory Findings CBC and BMP: 10/21/17 04:49 10/21/17 04:49 ABG ABG pH 7.49 pH Units (7.32-7.45) H 10/17/17 15:27 ABG pCO2 35 mmHg (35-45) 10/17/17 15:27 ABG pO2 63 mmHg (85-104) L 10/17/17 15:27 ABG O2 Saturation 94 % (95-98) L 10/17/17 15:27 Abnormal lab findings: Abnormal lab results RBC 3.17 M/mcL (3.82-4.97) L 10/21/17 04:49 Hgb 8.1 g/dL (11.5-15.4) L 10/21/17 04:49 Hct 25.2 % (35.3-44.9) L 10/21/17 04:49 MCV 79.5 fL (83.0-100.0) L 10/21/17 04:49 MCH 25.6 pg (28.0-33.3) L 10/21/17 04:49 RDW 14.6 % (11.5-14.5) H 10/21/17 04:49 Nucleated RBCs/100 WBC 0.8 /100 WBC (0) H 10/19/17 03:47 ABG pH 7.49 pH Units (7.32-7.45) H 10/17/17 15:27 ABG pO2 63 mmHg (85-104) L 10/17/17 15:27 ABG Total CO2 28 mEq/L (20-26) H 10/17/17 15:27 ABG O2 Saturation 94 % (95-98) L 10/17/17 15:27 Glucose 134 mg/dL (70-105) H 10/21/17 04:49 POC Glucose 126 (58-89) H 10/21/17 05:04 Hemoglobin A1c 5.7 % (-5.6) H 10/18/17 04:08 Calcium 7.9 mg/dL (8.6-10.3) L 10/21/17 04:49 Magnesium 1.5 mg/dL (1.6-2.6) L 10/20/17 02:39 Serum Total Protein 5.4 g/dL (6.4-8.9) L 10/21/17 04:49 Albumin 2.7 g/dL (3.5-5.7) L 10/21/17 04:49 Albumin/Globulin Ratio 1.0 (1.1-2.2) L 10/21/17 04:49 - Microbiology Findings Microbiology Findings: Microbiology, Last 48 Hours 10/17/17 17:19 Blood Culture - Preliminary Peripheral Venipuncture No growth. 10/17/17 17: Blood Culture - Preliminary Peripheral Venipuncture No growth. - Clinical Findings Intake & Output: Intake & Output 10/20/17 10/20/17 10/21/17 15:59 23:59 07:59 Intake Total 200 / 200 400 / 400 Output Total 100 / 100 1200 / 1200 125 / 125 Balance 100 / 100 -800 / -800 -125 / -125 Weight 62 kg - VTE Documentation of Mechanical Device: Graduated compression elastic hosiery
[2017-10-21] MEDS: Aspirin 81 MG TAB.CHEW PO SCH (07:47)
[2017-10-21] MEDS: D5% in 0.45% NACL w KCl 20 MEQ/1,000 ML MLS IVC SCH (07:48)
[2017-10-21] MEDS: Pantoprazole 40 MG VIAL IVP SCH (09:01)
[2017-10-21] MEDS: Nystatin Cream 15 GM TUBE TP SCH ×3 (09:01→21:50)
[2017-10-21 10:48] LABS: Magnesium 1.5 mg/dL (1.6-2.6)
--- NOTE | 2017-10-21 13:15 | Spine Progress Note ---
Date of Encounter: 10/21/17 Time of Encounter: 13:13 Subjective Principal diagnosis: Cervical myelopathy, status post corpectomy and cervical fusion Interval history: The patient is slowly improving. Her mentation is essentially baseline and she is communicating verbally. She failed swallow evaluation and plan is to retry in 48 hours. Afebrile vital signs are stable. Incision is clean dry and intact. She is still nonambulatory and has impairments in upper extremity function which are baseline. Assessment :stable status post corpectomy C4, cervical fusion C3-C6. Complicated by aspiration pneumonia., Postoperative blood loss anemia, dysphagia. Plan mobilize ,continue analgesics, continue antibiotics per pulmonary and hospitalist services, repeat swallow evaluation in 2 days. Objective Vital signs: Vital Signs Temp Pulse Resp BP Pulse Ox 10/21/17 12:51 98.4 F 10/21/17 12:00 110 22 111/73 100 10/21/17 11:08 18 100 10/21/17 08:08 18 100 10/21/17 07:53 97 10/21/17 07:51 96 18 104/57 100 10/21/17 07:10 98.0 F 10/21/17 07:00 100 10/21/17 06:00 94 16 99/66 100 10/21/17 04:00 98.4 F 96 14 111/68 100 10/21/17 02:00 90 14 105/67 100 10/21/17 01:00 94 18 112/70 100 10/20/17 23:55 12 111/67 100 10/20/17 23:05 95 10/20/17 23:00 99.6 F 95 16 111/67 100 10/20/17 21:50 99 16 100 10/20/17 20:00 99.7 F H 101 20 99/60 100 10/20/17 19:43 22 99/60 100 10/20/17 19:35 100 10/20/17 19:00 106 28 110/72 100 10/20/17 18:00 102 24 100 10/20/17 16:29 18 100 10/20/17 16:00 98.5 F 93 18 98/56 100 10/20/17 14:00 92 16 100 Intake and Output 10/20/17 10/21/17 10/21/17 23:59 07:59 15:59 Intake Total 400 / 400 200 / 200 Output Total 1200 / 1200 125 / 125 100 / 100 Balance -800 / -800 75 / 75 -100 / -100 Intake: IV Fluids 400 / 400 200 / 200 Zosyn Premix 3.375 GM/200 ML 3. 400 / 400 200 / 200 375 gm In 200 ml @ 50 mls/hr IVPB Q8H [facility] Rx#:[id number] Output: Catheter 1200 / 1200 125 / 125 100 / 100 Other: Weight 62 kg Blood Glucose* 141 189 - Labs CBC & BMP: 10/21/17 04:49 10/21/17 04:49 Labs: Abnormal lab results RBC 3.17 M/mcL (3.82-4.97) L 10/21/17 04:49 Hgb 8.1 g/dL (11.5-15.4) L 10/21/17 04:49 Hct 25.2 % (35.3-44.9) L 10/21/17 04:49 MCV 79.5 fL (83.0-100.0) L 10/21/17 04:49 MCH 25.6 pg (28.0-33.3) L 10/21/17 04:49 RDW 14.6 % (11.5-14.5) H 10/21/17 04:49 Nucleated RBCs/100 WBC 0.8 /100 WBC (0) H 10/19/17 03:47 ABG pH 7.49 pH Units (7.32-7.45) H 10/17/17 15:27 ABG pO2 63 mmHg (85-104) L 10/17/17 15:27 ABG Total CO2 28 mEq/L (20-26) H 10/17/17 15:27 ABG O2 Saturation 94 % (95-98) L 10/17/17 15:27 Glucose 134 mg/dL (70-105) H 10/21/17 04:49 POC Glucose 189 (58-89) H 10/21/17 11:28 Hemoglobin A1c 5.7 % (-5.6) H 10/18/17 04:08 Calcium 7.9 mg/dL (8.6-10.3) L 10/21/17 04:49 Magnesium 1.5 mg/dL (1.6-2.6) L 10/21/17 04:49 Serum Total Protein 5.4 g/dL (6.4-8.9) L 10/21/17 04:49 Albumin 2.7 g/dL (3.5-5.7) L 10/21/17 04:49 Albumin/Globulin Ratio 1.0 (1.1-2.2) L 10/21/17 04:49 Consult Discharge Plan - Plan Referrals: Betty Ortega PAC [Physician Sales Assistant Displays] - 10/28/17 2:15 pm Skip John Jr, MD [Partnered Physician] - 01/16/18 11:30 am ([facility] [address] [address] ) NONE,PCP [Primary Care Provider] -
[2017-10-21] MEDS ORDERED: *HR* OxyCODONE/APAP 5/325 TABLET PO PRN (14:47)
[2017-10-21] MEDS ORDERED: *HR* HYDROmorphone (PF) 1 MG/ML SYRINGE IVP PRN (15:57)
[2017-10-22] MEDS: Insulin LISPRO 300 UNITS/3 ML VIAL SQ SCH ×5 (00:18→23:48)
[2017-10-22] MEDS: Piperacillin/Tazobactam 3.375 GM/200 ML BAG IVPB SCH ×3 (04:22→18:32)
[2017-10-22] MEDS: Ipratropium/Albuterol Neb 3 ML IH SCH ×5 (04:25→20:26)
[2017-10-22] MEDS: *HR* Heparin 5,000 UNIT/ML VIAL SQ SCH ×3 (06:07→23:48)
[2017-10-22 07:09] LABS: Basophils % 0.8 %; Eosinophils # 0.1 K/mcL (0.0-0.6); Eosinophils % 1.9 %; Hematocrit 25.3 % (35.3-44.9); Lymphocytes # 0.7 K/mcL (0.6-4.6); Lymphocytes % 12.4 %; Mean Corpuscular HGB Conc 31.6 g/dL (31.6-35.5); Mean Corpuscular Hemoglobin 25.6 pg (28.0-33.3); Mean Corpuscular Volume 81.1 fL (83.0-100.0); Mean Platelet Volume 9.8 fL (9.4-12.4); Monocytes # 0.7 K/mcL (0.0-1.3); Monocytes % 13.5 %; Neutrophils # 3.6 K/mcL (1.6-8.9); Platelet Count 344 K/mcL (140-400); Red Blood Count 3.12 M/mcL (3.82-4.97); Red Cell Distribution Width 14.9 % (11.5-14.5); Segmented Neutrophils % 68.4 %
[2017-10-22 07:24] LABS: Alanine Aminotransferase 12 Units/L (7-52); Albumin 2.8 g/dL (3.5-5.7); Albumin/Globulin Ratio 0.9 (1.1-2.2); Alkaline Phosphatase 86 Units/L (34-104); Aspartate Amino Transferase 13 Units/L (13-39); BUN/Creatinine Ratio 17 (6-26); Bilirubin,Total 0.3 mg/dL (0.3-1.0); Blood Urea Nitrogen 12 mg/dL (8-23); Calcium 8.2 mg/dL (8.6-10.3); Carbon Dioxide 19 mEq/L (23-29); Chloride 105 mEq/L (98-107); Globulin 3.2 g/dL (2.4-3.5); Glucose 167 mg/dL (70-105); Osmolality,Calculated 292 (280-300); Potassium 3.9 mEq/L (3.5-5.1); Sodium 139 mEq/L (136-145); eGFR For African Americans > 60 (> 60); eGFR For Non-African Americans > 60 (> 60)
[2017-10-22] MEDS: Aspirin 81 MG TAB.CHEW PO SCH (07:47)
[2017-10-22] MEDS: Pantoprazole 40 MG VIAL IVP SCH (08:20)
--- NOTE | 2017-10-22 15:35 | Spine Progress Note ---
Date of Encounter: 10/22/17 Time of Encounter: 15:34 Subjective Principal diagnosis: Cervical myelopathy, status post corpectomy and cervical fusion Interval history: The patient is slowly improving. Her mentation is essentially baseline and she is communicating verbally. She failed swallow evaluation and plan is to retry . Afebrile vital signs are stable. Incision is clean dry and intact. She is still nonambulatory and has impairments in upper extremity function which are baseline. Assessment :stable status post corpectomy C4, cervical fusion C3- C6. Complicated by aspiration pneumonia., Postoperative blood loss anemia, dysphagia. Plan mobilize ,continue analgesics, continue antibiotics per pulmonary and hospitalist services, repeat swallow evaluation today. Plan dietary consult. Objective Vital signs: Vital Signs Temp Pulse Resp BP Pulse Ox 10/22/17 11:40 97.9 F 106 20 117/64 99 10/22/17 11:04 18 99 10/22/17 07:38 18 100 10/22/17 06:33 98.7 F 92 21 109/68 99 10/22/17 04:25 25 100 10/22/17 02:39 98.4 F 100 26 107/63 100 10/21/17 23:30 24 98 10/21/17 22:58 98.9 F 100 18 98/61 99 10/21/17 20:23 18 100 10/21/17 18:24 98.9 F 107 18 109/60 98 10/21/17 16:00 105 20 123/66 100 10/21/17 15:39 22 100 Intake and Output 10/21/17 10/22/17 10/22/17 23:59 07:59 15:59 Intake Total 400 / 400 Output Total 0 / 0 225 / 225 Balance 400 / 400 -225 / -225 Intake: IV Fluids 400 / 400 Zosyn Premix 3.375 GM/200 ML 3. 400 / 400 375 gm In 200 ml @ 50 mls/hr IVPB Q8H [facility] Rx#:[id number] Output: Catheter 0 / 0 225 / 225 Other: Blood Glucose* 126 168 162 - Labs CBC & BMP: 10/22/17 06:18 10/22/17 06:18 Labs: Abnormal lab results RBC 3.12 M/mcL (3.82-4.97) L 10/22/17 06:18 Hgb 8.0 g/dL (11.5-15.4) L 10/22/17 06:18 Hct 25.3 % (35.3-44.9) L 10/22/17 06:18 MCV 81.1 fL (83.0-100.0) L 10/22/17 06:18 MCH 25.6 pg (28.0-33.3) L 10/22/17 06:18 RDW 14.9 % (11.5-14.5) H 10/22/17 06:18 Nucleated RBCs/100 WBC 0.8 /100 WBC (0) H 10/19/17 03:47 ABG pH 7.49 pH Units (7.32-7.45) H 10/17/17 15:27 ABG pO2 63 mmHg (85-104) L 10/17/17 15:27 ABG Total CO2 28 mEq/L (20-26) H 10/17/17 15:27 ABG O2 Saturation 94 % (95-98) L 10/17/17 15:27 Carbon Dioxide 19 mEq/L (23-29) L 10/22/17 06:18 Glucose 167 mg/dL (70-105) H 10/22/17 06:18 POC Glucose 162 (58-89) H 10/22/17 12:01 Hemoglobin A1c 5.7 % (-5.6) H 10/18/17 04:08 Calcium 8.2 mg/dL (8.6-10.3) L 10/22/17 06:18 Magnesium 1.5 mg/dL (1.6-2.6) L 10/21/17 04:49 Serum Total Protein 6.0 g/dL (6.4-8.9) L 10/22/17 06:18 Albumin 2.8 g/dL (3.5-5.7) L 10/22/17 06:18 Albumin/Globulin Ratio 0.9 (1.1-2.2) L 10/22/17 06:18 Prealbumin 12.4 mg/dL (17.0-34.0) L 10/22/17 08:06 Consult Discharge Plan - Plan Referrals: Betty Ortega PAC [Physician Auto Servicer] - 10/28/17 2:15 pm Skip John Jr, MD [Partnered Physician] - 01/16/18 11:30 am ([facility] [address] [address] ) NONE,PCP [Primary Care Provider] -
[2017-10-22] MEDS: Nystatin Cream 15 GM TUBE TP SCH ×3 (16:00→22:21)
[2017-10-22] MEDS ORDERED: Preparation H Ointment 30 GM TUBE RC PRN (16:36)
--- NOTE | 2017-10-22 17:51 | Internal Med Progress Note ---
Date of Encounter: 10/22/17 Time of Encounter: 17:50 - Subjective Interval history: Interval changes: Minimally responsive this afternoon Physical Exam: Cervical myelopathy: status post corpectomy and cervical fusion. Spine surgery following RLL PNA Continue current antibiotics DM-2: Continue current regimen - Constitutional Vitals: Temp Pulse Resp BP Pulse Ox 97.9 F 102 20 100/65 96 10/22/17 16:19 10/22/17 16:19 10/22/17 16:43 10/22/17 16:19 10/22/17 16:43 General appearance: Present: A&O X 2, obese - Head Head exam: Present: atraumatic, normocephalic - Eye Eye exam: Present: EOMI, PERRL, conjuntiva pink, sclera anicteric Pupils: Present: PERRL - ENT ENT exam: Present: mucous membranes moist - Neck Neck exam general surgery: Present: tenderness, trachea midline. Absent: full ROM, nuchal rigidity, thyromegaly - Respiratory Respiratory exam: Present: decreased breath sounds, CTAB. Absent: rales, rhonchi, stridor, wheezes - GI/Abdominal GI/Abdominal exam: Present: normal bowel sounds, soft. Absent: diminished bowel sounds, distended, firm, guarding, rebound, rigid - Incison Incision: Present: clean and dry - Neurological Exam Neurological exam: Present: motor sensory deficit, no focal deficits. Absent: abnormal gait, alert Internal Medicine: Result - Labs CBC & Chem 7: 10/22/17 06:18 10/22/17 06:18 Labs: Short CBC 10/22/17 Range/Units 06:18 WBC 5.3 (4.3-11.1) K/mcL Hgb 8.0 L (11.5-15.4) g/dL Hct 25.3 L (35.3-44.9) % Plt Count 344 (140-400) K/mcL Neutrophils # 3.6 (1.6-8.9) K/mcL BMP 10/22/17 06:18 Sodium 139 Potassium 3.9 Chloride 105 Carbon Dioxide 19 L BUN 12 Creatinine 0.70 Glucose 167 H Calcium 8.2 L Liver Function 10/22/17 Range/Units 06:18 Total Bilirubin 0.3 (0.3-1.0) mg/dL AST 13 (13-39) Units/L ALT 12 (7-52) Units/L Alkaline Phosphatase 86 (34-104) Units/L Albumin 2.8 L (3.5-5.7) g/dL - ABG Interpretation ABG results: ABG ABG pH 7.49 pH Units (7.32-7.45) H 10/17/17 15:27 ABG pCO2 35 mmHg (35-45) 10/17/17 15:27 ABG pO2 63 mmHg (85-104) L 10/17/17 15:27 ABG O2 Saturation 94 % (95-98) L 10/17/17 15:27 - Impressions Impressions Videofluoroscopic Swallow 10/20/17 00:01 IMPRESSION: Aspiration with minimal cough reflex. Please see separate speech pathology report for full discussion of findings and recommendations. D/ / 10/20/2017 11:25:39 Samson An MD / earankush Interpreting Provider: Samson An MD Videofluoroscopic Swallow 10/22/17 11:35 IMPRESSION: Dysphagia as described above. Please see separate speech pathology report for full discussion of findings and recommendations. D/ / 10/22/2017 16:16:25 Pratik Roman MD / earankush Interpreting Provider: Pratik Roman MD - VTE Documentation of Mechanical Device: Intermittent pneumatic compression device Consult Discharge Plan - Plan Referrals: Betty Ortega PAC [Physician Delivery Motorcycle Driver] - 10/28/17 2:15 pm Skip John Jr, MD [Partnered Physician] - 01/16/18 11:30 am ([facility] [address] ) NONE,PCP [Primary Care Provider] -
[2017-10-23] MEDS: Ipratropium/Albuterol Neb 3 ML IH SCH ×7 (00:16→23:23)
[2017-10-23] MEDS: Piperacillin/Tazobactam 3.375 GM/200 ML BAG IVPB SCH ×3 (05:06→20:22)
[2017-10-23] MEDS: Insulin LISPRO 300 UNITS/3 ML VIAL SQ SCH ×3 (06:28→20:22)
[2017-10-23] MEDS: *HR* Heparin 5,000 UNIT/ML VIAL SQ SCH ×3 (06:29→23:36)
[2017-10-23 06:32] LABS: Magnesium 1.6 mg/dL (1.6-2.6); Phosphorous 2.5 mg/dL (2.7-4.5)
[2017-10-23] MEDS: Aspirin 81 MG TAB.CHEW PO SCH (08:25)
[2017-10-23] MEDS: Pantoprazole 40 MG VIAL IVP SCH (08:26)
[2017-10-23] MEDS: Nystatin Cream 15 GM TUBE TP SCH (08:26)
--- NOTE | 2017-10-23 10:21 | General Surgery Consult Note ---
Date of Encounter: 10/23/17 Time of Encounter: 09:45 Assessment and Plan (1) Dysphagia causing pulmonary aspiration with swallowing Current Visit: Yes Status: Acute Noted aspiration per video fluoroscopy x2. Patient is recommended to undergo a percutaneous endoscopic gastrostomy tube placement. Recommendations, risks, and benefits were reviewed with patient's (Glenroy Marcos) and he is agreeable to proceed. Signed telephone consent/witnessed per bedside RN placed on chart. We will plan for peg tube placement in the next 24 to 48 hours (2) Status post cervical spinal fusion Current Visit: Yes Status: Acute History of Present Illness Consult date: 10/23/17 (Dr. Gregory Meehan) Reason for consult: other (Dysphasia; aspiration) Requesting physician: Skip John Jr History of present illness: Subjective information is limited to chart review as patient is currently confused. Reason for consult: Need for PEG tube placement d/t dysphasia with aspiration Consulted surgeon: Dr. Gregory Meehan Ms Marcos is a 67 -year-old female with a history of HTN, T2DM, HLP , DVT, and Cervical myelopathy, status post corpectomy and cervical fusion this hospital admission. Per record review and report, she is intermittently confused and unable to participate in her recovery (i.e. PT/OT) and is WC bound at baseline. Her hospital course was complicated by aspiration pneumonia. She is noted to have completed swallowing exams with video fluoroscopy on 10/20/2017 and 10/22/2017 both with tien aspiration. [facility] is unable to provide ROS at this time d/t confusion. Past Med Surg Social Fam HX - Past Medical History Medical history: diabetes, hyperlipidemia, hypertension Psychiatric history: no psych history - Past Surgical History Surgical History: cataract - Social History Smoking Status: Never smoker Alcohol use: none Drug use: none - Family History Father Race: Family Member Ethnicity: Non- Living Status: Age at : 61 Cause of : [place] Hx Family Cardiac Disorders: Yes ([place], HTN, HLD) Mother Race: Family Member Ethnicity: Non- Living Status: Age at : 80 Cause of : CHF Hx Family Cardiac Disorders: Yes (Stroke, CHF) Hx Family Endocrine Disorder: Yes (DM) Sister Race: Family Member Ethnicity: Non- Living Status: Still Living Hx Family Cardiac Disorders: Yes (Open heart surgery, HTN) Medications and Allergies Aspirin 81 mg PO DAILY 10/15/17 [History] Carvedilol [Carvedilol] 3.125 mg PO BID 10/15/17 [History] Cilostazol [Cilostazol] 50 mg PO DAILY 10/15/17 [History] Clopidogrel [Plavix] 75 mg PO DAILY 10/15/17 [History] Docusate Sodium [Dok] 100 mg PO DAILY 10/15/17 [History] Medroxyprogesterone Acetate [Provera] 2.5 mg PO DAILY 10/15/17 [History] Metformin HCl [Metformin HCl ER] 1,000 mg PO BID 10/15/17 [History] Multivit-Min/FA/Lycopen/Lutein [Centrum Silver Tablet] 1 tab PO DAILY 10/15/17 [ History] Simvastatin [Zocor] 40 mg PO HS 10/15/17 [History] glipiZIDE [Glipizide] 20 mg PO BID 10/15/17 [History] hydroCHLOROthiazide [Hydrochlorothiazide] 12.5 mg PO QAM 10/15/17 [History] 3 Allergy/AdvReac Type Severity Reaction Status Date / Time No Known Allergies Allergy Verified 10/15/17 06:41 Review of Systems ROS unobtainable: due to mental status All systems PM: A 10-system review of systems was performed and is negative for pertinent findings except as documented above in the HPI. General Surgery Exam Initial Vital Signs Temp Pulse Resp BP Pulse Ox 97.9 F 73 18 132/56 98 10/15/17 06:42 10/15/17 06:42 10/15/17 06:42 10/15/17 06:42 10/15/17 06:42 - General physical appearance no distress, chronically ill, other - Neck trachea midline, no venous distension - Respiratory other (On bipap) - Cardiovascular Cardiovascular exam: Present: RRR - Abdomen Abdomen general surgery: Present: bowel sounds present, soft, non tender - Neurologic Present: disoriented - Musculoskeletal Present: other - Psychiatric Psychiatric general surgery: Present: other (Pleasantly confused. Oriented to Person only) Exam Initial Vital Signs Temp Pulse Resp BP Pulse Ox 97.9 F 73 18 132/56 98 10/15/17 06:42 10/15/17 06:42 10/15/17 06:42 10/15/17 06:42 10/15/17 06:42 Results - Labs 10/22/17 06:18 10/22/17 06:18 Abnormal lab results RBC 3.12 M/mcL (3.82-4.97) L 10/22/17 06:18 Hgb 8.0 g/dL (11.5-15.4) L 10/22/17 06:18 Hct 25.3 % (35.3-44.9) L 10/22/17 06:18 MCV 81.1 fL (83.0-100.0) L 10/22/17 06:18 MCH 25.6 pg (28.0-33.3) L 10/22/17 06:18 RDW 14.9 % (11.5-14.5) H 10/22/17 06:18 Nucleated RBCs/100 WBC 0.8 /100 WBC (0) H 10/19/17 03:47 ABG pH 7.49 pH Units (7.32-7.45) H 10/17/17 15:27 ABG pO2 63 mmHg (85-104) L 10/17/17 15:27 ABG Total CO2 28 mEq/L (20-26) H 10/17/17 15:27 ABG O2 Saturation 94 % (95-98) L 10/17/17 15:27 Carbon Dioxide 19 mEq/L (23-29) L 10/22/17 06:18 Glucose 167 mg/dL (70-105) H 10/22/17 06:18 POC Glucose 167 (58-89) H 10/23/17 05:56 Hemoglobin A1c 5.7 % (-5.6) H 10/18/17 04:08 Calcium 8.2 mg/dL (8.6-10.3) L 10/22/17 06:18 Phosphorus 2.5 mg/dL (2.7-4.5) L 10/23/17 05:21 Serum Total Protein 6.0 g/dL (6.4-8.9) L 10/22/17 06:18 Albumin 2.8 g/dL (3.5-5.7) L 10/22/17 06:18 Albumin/Globulin Ratio 0.9 (1.1-2.2) L 10/22/17 06:18 Prealbumin 12.4 mg/dL (17.0-34.0) L 10/22/17 08:06 Calcium panel 10/23/17 Range/Units 05:21 Phosphorus 2.5 L (2.7-4.5) mg/dL All other labs normal. - Imaging Additional studies: Fluoroscopy 10/15/17 08:47 IMPRESSION: Intraprocedural fluoroscopic spot images as above. See separate procedure report for more information. D/ / Stiven Hayden MD / Stiven Hayden MD Interpreting Provider: Stiven Hayden MD Cervical Spine X-Ray 10/16/17 08:15 IMPRESSION: Anterior fusion involving C3 through C6 with partial corpectomy at C4. No hardware complication. D/ / Zheng Gaston MD / Zheng Gaston MD Interpreting Provider: Zheng Gaston MD Head CT 10/17/17 07:00 IMPRESSION: Multiple remote infarcts as noted above. No acute disease noted. D/ / Howard Machado MD / Howard Machado MD Interpreting Provider: Howard Machado MD Chest X-Ray 10/17/17 13:15 IMPRESSION: Airspace opacity in the right mid to lower lung field, likely related to pneumonia. D/ / Dilip Saini MD / Dilip Saini MD Interpreting Provider: Dilip Saini MD Videofluoroscopic Swallow 10/22/17 11:35 IMPRESSION: Dysphagia as described above. Please see separate speech pathology report for full discussion of findings and recommendations. D/ / 10/22/2017 16:16:25 Pratik Roman MD / alexys Interpreting Provider: Pratik Roman MD Consult Discharge Plan - Plan Referrals: Betty Ortega PAC [Physician Packing Floor Worker] - 10/28/17 2:15 pm Skip John Jr, MD [Partnered Physician] - 01/16/18 11:30 am ([facility] [address] [address] ) NONE,PCP [Primary Care Provider] -
[2017-10-23] MEDS ORDERED: *HR* Midazolam HCl 5 MG/5 ML VIAL IVP ONE (14:43)
--- NOTE | 2017-10-23 14:43 | Internal Med Progress Note ---
Date of Encounter: 10/23/17 Time of Encounter: 14:42 - Subjective Interval history: HPI: 67 yr old woman who developed RLL PNA following cervical spine surgery. She has severe dysphagia requiring a PEG tube Interval changes: Minimally responsive this afternoon Physical Exam: See below Cervical myelopathy: status post corpectomy and cervical fusion. Spine surgery following RLL PNA Continue current antibiotics Pt. is post-surgical status for cervical fusion two days ago and developed SOB, dypsnea, and inability to clear airway secretions. Consult to Hospitalist for medical mgmt. Blood cultures x2. Sputum culture. Legionella and strep pneunomiae antigens ordered. Pt. is currently incontinent, so Fernandez catheter ordered to prevent skin breakdown. IVPB vancomycin w/pharmacy dosing and Zosyn 3.375 gm Q8 for infection coverage. Will adjust abx coverage based on culture results. Supplemental O2 w/titration and SpO2 monitoring. DuoNebs Q4 scheduled. Pt. does not currently meet sepsis criteria but will be monitored closely as well as f/u labs. Pt. discussed w/Dr. Peralta who is in agreement w/plan of care. Pt. is high risk for further morbidity, sepsis, respiratory distress and/or failure, and cardiac distress based on current sx and risk factors. Dysphagia: S/p PEG tube placement day DM-2: Continue current regimen - Constitutional Vitals: Temp Pulse Resp BP Pulse Ox 98.7 F 100 16 110/53 99 10/23/17 11:03 10/23/17 14:34 10/23/17 14:34 10/23/17 14:34 10/23/17 14:34 General appearance: Present: cooperative, mild distress, A&O X 3, answers questions appropriately - Head Head exam: Present: atraumatic, normocephalic - Eye Eye exam: Present: EOMI, PERRL, conjuntiva pink, sclera anicteric. Absent: conjunctival injection, nystagmus, periorbital swelling, periorbital tenderness , scleral icterus Pupils: Present: PERRL - Neck Neck exam general surgery: Present: tenderness, supple, trachea midline. Absent : lymphadenopathy, thyromegaly Additional comments: Incission healing well - Respiratory Respiratory exam: Present: CTAB. Absent: accessory muscle use, rales, rhonchi, wheezes - Cardiovascular Cardiovascular exam: Present: RRR, +S1, +S2. Absent: diastolic murmur, gallop, rubs, systolic murmur - GI/Abdominal GI/Abdominal exam: Present: normal bowel sounds, soft, no peritoneal signs. Absent: distended, tenderness - Extremities Exam Extremities exam: Present: warm, radial pulses palpable and symmetrical. Absent : calf tenderness, cyanotic, pedal edema - Neurological Exam Neurological exam: Present: CN II-XII intact, oriented X3, no focal deficits. Absent: pronater drift, facial droop, speech deficit - Skin Skin exam: Present: dry, intact Internal Medicine: Result - Labs CBC & Chem 7: 10/22/17 06:18 10/22/17 06:18 - ABG Interpretation ABG results: ABG ABG pH 7.49 pH Units (7.32-7.45) H 10/17/17 15:27 ABG pCO2 35 mmHg (35-45) 10/17/17 15:27 ABG pO2 63 mmHg (85-104) L 10/17/17 15:27 ABG O2 Saturation 94 % (95-98) L 10/17/17 15:27 - Impressions Impressions Videofluoroscopic Swallow 10/22/17 11:35 IMPRESSION: Dysphagia as described above. Please see separate speech pathology report for full discussion of findings and recommendations. D/ / 10/22/2017 16:16:25 Pratik Roman MD / earnold Interpreting Provider: Pratik Roman MD - VTE Documentation of Mechanical Device: Venous foot pump, device Consult Discharge Plan - Plan Referrals: Betty Ortega PAC [Physician Wound Care Specialist] - 10/28/17 2:15 pm Skip John Jr, MD [Partnered Physician] - 01/16/18 11:30 am ([facility] [place] [address] ) NONE,PCP [Primary Care Provider] -
[2017-10-23] MEDS ORDERED: *HR* FentaNYL (PF) 100 MCG/2 ML VIAL ONE (14:44)
[2017-10-23] MEDS ORDERED: *HR* Midazolam HCl 2 MG/2 ML VIAL ONE (14:45)
[2017-10-23] MEDS ORDERED: 0.9 % Sodium Chloride 1,000 ML IVC SCH ×2 (14:45→23:30)
[2017-10-23] MEDS ORDERED: *HR* FentaNYL (PF) 100 MCG/2 ML VIAL IVP ONE (15:00)
[2017-10-23] MEDS ORDERED: *HR* Midazolam HCl 2 MG/2 ML VIAL IVP ONE (15:00)
[2017-10-23] MEDS ORDERED: Tetracaine/Benzocaine/Butamben 200MG/SPRAY (100SPY/BOT) MM ONE (15:00)
[2017-10-23] MEDS ORDERED: Simethicone 40 MG/0.6 ML MLS IR ONE (15:00)
--- NOTE | 2017-10-23 15:02 | Pre-Sedation Evaluation ---
Pre-sedation evaluation - Pre-sedation checklist Date of procedure: 10/15/17 Procedure: PEG Recent Vitals: Last Vital Signs Temp 98.7 F 10/23/17 11:03 Pulse 99 10/23/17 14:55 Resp 16 10/23/17 14:55 BP 108/57 10/23/17 14:55 Pulse Ox 99 10/23/17 14:55 H&P (including ROS) documented in medical record: Yes Dietary Status: NPO after Midnight Airway Assessment: Patient can open mouth completely, TMJ function normal Dentition: poor dentition Possible difficult airway: No ASA Classification *see protocol: CLASS III-Severe systemic disease
[2017-10-24] MEDS: Insulin LISPRO 300 UNITS/3 ML VIAL SQ SCH ×5 (01:10→22:55)
[2017-10-24] MEDS: Piperacillin/Tazobactam 3.375 GM/200 ML BAG IVPB SCH ×3 (03:28→22:52)
[2017-10-24] MEDS: Ipratropium/Albuterol Neb 3 ML IH SCH ×5 (03:30→20:25)
[2017-10-24 04:46] LABS: BUN/Creatinine Ratio 14 (6-26); Blood Urea Nitrogen 10 mg/dL (8-23); Calcium 8.2 mg/dL (8.6-10.3); Carbon Dioxide 19 mEq/L (23-29); Chloride 108 mEq/L (98-107); Glucose 163 mg/dL (70-105); Osmolality,Calculated 295 (280-300); Potassium 3.6 mEq/L (3.5-5.1); Sodium 141 mEq/L (136-145); eGFR For African Americans > 60 (> 60); eGFR For Non-African Americans > 60 (> 60)
[2017-10-24 04:47] LABS: Basophils % 0.5 %; Eosinophils # 0.1 K/mcL (0.0-0.6); Eosinophils % 1.9 %; Hematocrit 24.9 % (35.3-44.9); Hemoglobin 7.6 g/dL (11.5-15.4); Immature Granulocytes % 2.4 % (0-4); Lymphocytes # 0.6 K/mcL (0.6-4.6); Lymphocytes % 10.2 %; Mean Corpuscular HGB Conc 30.5 g/dL (31.6-35.5); Mean Corpuscular Hemoglobin 25.2 pg (28.0-33.3); Mean Corpuscular Volume 82.7 fL (83.0-100.0); Mean Platelet Volume 9.6 fL (9.4-12.4); Monocytes # 0.9 K/mcL (0.0-1.3); Monocytes % 15.1 %; Neutrophils # 4.1 K/mcL (1.6-8.9); Platelet Count 352 K/mcL (140-400); Red Blood Count 3.01 M/mcL (3.82-4.97); Red Cell Distribution Width 15.5 % (11.5-14.5); Segmented Neutrophils % 69.9 %
[2017-10-24] MEDS: *HR* Heparin 5,000 UNIT/ML VIAL SQ SCH ×3 (06:51→22:53)
--- NOTE | 2017-10-24 08:11 | Spine Progress Note ---
Date of Encounter: 10/23/17 Time of Encounter: 17:15 Subjective Principal diagnosis: Cervical myelopathy, status post corpectomy and cervical fusion Interval history: The patient is slowly improving. Her mentation is essentially baseline and she is communicating verbally. She failed swallow evaluation for second time. . Afebrile vital signs are stable. Incision is clean dry and intact. She is still nonambulatory and has impairments in upper extremity function which are baseline. Assessment :stable status post corpectomy C4, cervical fusion C3- C6. Complicated by aspiration pneumonia., Postoperative blood loss anemia, dysphagia. Plan mobilize ,continue analgesics, continue antibiotics per pulmonary and hospitalist services, dietary consult obtained and plan is for PEG tube placement today by Dr. Meehan. Objective Vital signs: Vital Signs Temp Pulse Resp BP Pulse Ox 10/24/17 07:47 24 98 10/24/17 04:47 98.7 F 92 24 108/68 98 10/24/17 03:31 22 93 10/24/17 00:43 100.1 F H 105 24 98/51 97 10/23/17 23:21 18 99 10/23/17 20:09 18 99 10/23/17 20:08 100.2 F H 109 19 103/67 99 10/23/17 16:51 98.4 F 87 16 98/56 96 10/23/17 16:19 16 98 10/23/17 16:07 16 98 10/23/17 15:20 95 16 95/49 96 10/23/17 15:15 94 16 98/57 99 10/23/17 15:10 90 16 108/58 99 10/23/17 15:05 100 16 110/62 98 10/23/17 15:00 100 16 114/54 98 10/23/17 14:55 99 16 108/57 99 10/23/17 14:50 102 16 110/58 98 10/23/17 14:34 100 16 110/53 99 10/23/17 11:04 12 98 10/23/17 11:03 98.7 F 84 14 98/67 96 Intake and Output 10/23/17 10/24/17 10/24/17 23:59 07:59 15:59 Intake Total 200 / 200 200 / 200 Output Total 250 / 250 400 / 400 Balance -50 / -50 -200 / -200 Intake: IV Fluids 200 / 200 200 / 200 Zosyn Premix 3.375 GM/200 ML 3. 200 / 200 200 / 200 375 gm In 200 ml @ 50 mls/hr IVPB Q8H [facility] Rx#:[id number] Output: Catheter 250 / 250 400 / 400 Other: Blood Glucose* 173 178 - Labs CBC & BMP: 10/24/17 04:05 10/24/17 04:05 Labs: Abnormal lab results RBC 3.01 M/mcL (3.82-4.97) L 10/24/17 04:05 Hgb 7.6 g/dL (11.5-15.4) L 10/24/17 04:05 Hct 24.9 % (35.3-44.9) L 10/24/17 04:05 MCV 82.7 fL (83.0-100.0) L 10/24/17 04:05 MCH 25.2 pg (28.0-33.3) L 10/24/17 04:05 MCHC 30.5 g/dL (31.6-35.5) L 10/24/17 04:05 RDW 15.5 % (11.5-14.5) H 10/24/17 04:05 Nucleated RBCs/100 WBC 0.8 /100 WBC (0) H 10/19/17 03:47 ABG pH 7.49 pH Units (7.32-7.45) H 10/17/17 15:27 ABG pO2 63 mmHg (85-104) L 10/17/17 15:27 ABG Total CO2 28 mEq/L (20-26) H 10/17/17 15:27 ABG O2 Saturation 94 % (95-98) L 10/17/17 15:27 Chloride 108 mEq/L (98-107) H 10/24/17 04:05 Carbon Dioxide 19 mEq/L (23-29) L 10/24/17 04:05 Glucose 163 mg/dL (70-105) H 10/24/17 04:05 POC Glucose 178 (58-89) H 10/24/17 06:16 Hemoglobin A1c 5.7 % (-5.6) H 10/18/17 04:08 Calcium 8.2 mg/dL (8.6-10.3) L 10/24/17 04:05 Phosphorus 2.5 mg/dL (2.7-4.5) L 10/23/17 05:21 Serum Total Protein 6.0 g/dL (6.4-8.9) L 10/22/17 06:18 Albumin 2.8 g/dL (3.5-5.7) L 10/22/17 06:18 Albumin/Globulin Ratio 0.9 (1.1-2.2) L 10/22/17 06:18 Prealbumin 12.4 mg/dL (17.0-34.0) L 10/22/17 08:06 Consult Discharge Plan - Plan Referrals: Betty Ortega PAC [Physician Supply Chain Specialist] - 10/28/17 2:15 pm Skip John Jr, MD [Partnered Physician] - 01/16/18 11:30 am ([facility] [address] [address] ) NONE,PCP [Primary Care Provider] -
[2017-10-24] MEDS: Pantoprazole 40 MG VIAL IVP SCH (09:55)
[2017-10-24] MEDS: Nystatin Cream 15 GM TUBE TP SCH ×3 (09:57→22:50)
[2017-10-24] MEDS ORDERED: Insulin LISPRO 300 UNITS/3 ML VIAL SQ SCH ×2 (11:30→21:00)
[2017-10-24] MEDS: Aspirin 81 MG TAB.CHEW PO SCH (12:00)
--- NOTE | 2017-10-24 12:00 | Event Note ---
Date of Encounter: 10/24/17 Time of Encounter: 11:30 Patient POD #1 from a peg tube insertion with Dr. Meehan. The peg tube is secure and was loosened. Currently secure at the 6cm kalia at the abdominal wall. The site is clean, dry and intact. May use for tube feedings, medications, water flushes at this time. Follow swing grinder recommendations for feedings. Surgery will sign off at this time. Please call with any further questions concerns. Thank you for allowing us to participate in the care of this patient. The patient may follow-up in the surgery office on an as-needed basis.
--- NOTE | 2017-10-24 17:24 | Internal Med Progress Note ---
Date of Encounter: 10/24/17 Time of Encounter: 17:23 - Subjective Interval history: HPI: 67 yr old woman who developed RLL (aspiration) PNA following cervical spine surgery. She's failed two swallow studies and developed severe dysphagia. A PEG tube was placed and dietary was consulted for TF plans. Jevity 1.5 started at 20 ml/hr continuously with goal of 40 ml/hr. So far tolerating TFs. Interval changes: Very responsive today and A&O x3 with no significant new complaints. Physical Exam: See below Cervical myelopathy: status post corpectomy and cervical fusion. Spine surgery following. She has significant bilateral UE weakness and will require ongoing PT /OT. RLL PNA (presumed to be aspiration PNA) Continue current antibiotics (Zosyn). Dysphagia: S/p PEG tube placement day. She will need ongoing ST DM-2: Continue current regimen Physical exam: - Constitutional Vitals: Temp Pulse Resp BP Pulse Ox 99.2 F 100 18 108/72 100 10/24/17 12:06 10/24/17 12:06 10/24/17 12:06 10/24/17 12:06 10/24/17 14:54 General appearance: Present: cooperative, mild distress, A&O X 3, answers questions appropriately - Head Head exam: Present: atraumatic, normocephalic - Eye Eye exam: Present: EOMI, PERRL, conjuntiva pink, sclera anicteric Pupils: Present: PERRL - Neck Neck exam general surgery: Present: tenderness, supple, trachea midline. Absent : lymphadenopathy, nuchal rigidity, thyromegaly - Respiratory Respiratory exam: Present: CTAB. Absent: accessory muscle use, rales, rhonchi, wheezes - Cardiovascular Cardiovascular exam: Present: RRR, +S1, +S2. Absent: diastolic murmur, gallop, rubs, systolic murmur - GI/Abdominal GI/Abdominal exam: Present: normal bowel sounds, soft, no peritoneal signs. Absent: distended, tenderness - Extremities Exam Extremities exam: Present: warm, radial pulses palpable and symmetrical. Absent : calf tenderness, cyanotic, pedal edema - Neurological Exam Neurological exam: Present: CN II-XII intact, oriented X3, no focal deficits. Absent: pronater drift, facial droop, speech deficit - Skin Skin exam: Present: dry, intact Internal Medicine: Result - Labs CBC & Chem 7: 10/24/17 04:05 10/24/17 04:05 Labs: Short CBC 10/24/17 Range/Units 04:05 WBC 5.9 (4.3-11.1) K/mcL Hgb 7.6 L (11.5-15.4) g/dL Hct 24.9 L (35.3-44.9) % Plt Count 352 (140-400) K/mcL Neutrophils # 4.1 (1.6-8.9) K/mcL BMP 10/24/17 04:05 Sodium 141 Potassium 3.6 Chloride 108 H Carbon Dioxide 19 L BUN 10 Creatinine 0.71 Glucose 163 H Calcium 8.2 L - ABG Interpretation ABG results: ABG ABG pH 7.49 pH Units (7.32-7.45) H 10/17/17 15:27 ABG pCO2 35 mmHg (35-45) 10/17/17 15:27 ABG pO2 63 mmHg (85-104) L 10/17/17 15:27 ABG O2 Saturation 94 % (95-98) L 10/17/17 15:27 - VTE Documentation of Mechanical Device: Intermittent pneumatic compression device Consult Discharge Plan - Plan Referrals: Betty Ortega PAC [Physician Drywall Carrier] - 10/28/17 2:15 pm Skip John Jr, MD [Partnered Physician] - 01/16/18 11:30 am ([facility] [place] [id number] ) NONE,PCP [Primary Care Provider] -
--- NOTE | 2017-10-24 18:36 | Spine Progress Note ---
Date of Encounter: 10/24/17 Time of Encounter: 18:35 Subjective Principal diagnosis: Cervical myelopathy, status post corpectomy and cervical fusion Interval history: The patient is slowly improving. Her mentation is essentially baseline and she is communicating verbally. She failed swallow evaluation for second time. . Afebrile vital signs are stable. Incision is clean dry and intact. She is still nonambulatory and has impairments in upper extremity function are improving now she can open and close fists bilaterally which was not apparent preoperatively. Assessment :stable status post corpectomy C4, cervical fusion C3-C6. Complicated by aspiration pneumonia., Postoperative blood loss anemia, dysphagia. Plan mobilize ,continue analgesics, continue antibiotics per pulmonary and hospitalist services, dietary consult obtained. PEG placed and she is receiving continuous tube feeds.. Objective Vital signs: Vital Signs Temp Pulse Resp BP Pulse Ox 10/24/17 17:22 98.8 F 109 16 99/65 97 10/24/17 16:19 16 97 10/24/17 14:54 100 10/24/17 12:06 99.2 F 100 18 108/72 100 10/24/17 10:52 16 99 10/24/17 07:53 99.4 F 96 16 111/71 99 10/24/17 07:47 24 98 10/24/17 04:47 98.7 F 92 24 108/68 98 10/24/17 03:31 22 93 10/24/17 00:43 100.1 F H 105 24 98/51 97 10/23/17 23:21 18 99 10/23/17 20:09 18 99 10/23/17 20:08 100.2 F H 109 19 103/67 99 Intake and Output 10/24/17 10/24/17 10/24/17 07:59 15:59 23:59 Intake Total 400 / 400 170 / 170 350 / 350 Output Total 400 / 400 Balance 0 / 0 170 / 170 350 / 350 Intake: IV Fluids 400 / 400 200 / 200 Zosyn Premix 3.375 GM/200 ML 3. 400 / 400 200 / 200 375 gm In 200 ml @ 50 mls/hr IVPB Q8H [facility] Rx#:[id number] Free Water Intake Amount 170 / 170 150 / 150 Output: Catheter 400 / 400 Other: Blood Glucose* 178 169 - Labs CBC & BMP: 10/24/17 04:05 10/24/17 04:05 Labs: Abnormal lab results RBC 3.01 M/mcL (3.82-4.97) L 10/24/17 04:05 Hgb 7.6 g/dL (11.5-15.4) L 10/24/17 04:05 Hct 24.9 % (35.3-44.9) L 10/24/17 04:05 MCV 82.7 fL (83.0-100.0) L 10/24/17 04:05 MCH 25.2 pg (28.0-33.3) L 10/24/17 04:05 MCHC 30.5 g/dL (31.6-35.5) L 10/24/17 04:05 RDW 15.5 % (11.5-14.5) H 10/24/17 04:05 Nucleated RBCs/100 WBC 0.8 /100 WBC (0) H 10/19/17 03:47 ABG pH 7.49 pH Units (7.32-7.45) H 10/17/17 15:27 ABG pO2 63 mmHg (85-104) L 10/17/17 15:27 ABG Total CO2 28 mEq/L (20-26) H 10/17/17 15:27 ABG O2 Saturation 94 % (95-98) L 10/17/17 15:27 Chloride 108 mEq/L (98-107) H 10/24/17 04:05 Carbon Dioxide 19 mEq/L (23-29) L 10/24/17 04:05 Glucose 163 mg/dL (70-105) H 10/24/17 04:05 POC Glucose 178 (58-89) H 10/24/17 06:16 Hemoglobin A1c 5.7 % (-5.6) H 10/18/17 04:08 Calcium 8.2 mg/dL (8.6-10.3) L 10/24/17 04:05 Phosphorus 2.5 mg/dL (2.7-4.5) L 10/23/17 05:21 Serum Total Protein 6.0 g/dL (6.4-8.9) L 10/22/17 06:18 Albumin 2.8 g/dL (3.5-5.7) L 10/22/17 06:18 Albumin/Globulin Ratio 0.9 (1.1-2.2) L 10/22/17 06:18 Prealbumin 12.4 mg/dL (17.0-34.0) L 10/22/17 08:06 Consult Discharge Plan - Plan Referrals: Betty Ortega PAC [Physician Supply Chain Business Analyst] - 10/28/17 2:15 pm Skip John Jr, MD [Partnered Physician] - 01/16/18 11:30 am ([facility] [place] [address] ) NONE,PCP [Primary Care Provider] -
[2017-10-24] MEDS: Docusate Oral Soln 100 MG/10 ML UDC PO SCH (22:54)
[2017-10-25] MEDS: Ipratropium/Albuterol Neb 3 ML IH SCH ×7 (00:08→23:55)
[2017-10-25] MEDS: Insulin LISPRO 300 UNITS/3 ML VIAL SQ SCH ×6 (02:30→19:52)
[2017-10-25] MEDS: Piperacillin/Tazobactam 3.375 GM/200 ML BAG IVPB SCH ×3 (04:35→19:47)
[2017-10-25] MEDS: *HR* Heparin 5,000 UNIT/ML VIAL SQ SCH ×3 (04:37→22:02)
[2017-10-25 06:45] LABS: BUN/Creatinine Ratio 18 (6-26); Blood Urea Nitrogen 12 mg/dL (8-23); Calcium 8.3 mg/dL (8.6-10.3); Carbon Dioxide 26 mEq/L (23-29); Chloride 110 mEq/L (98-107); Glucose 187 mg/dL (70-105); Magnesium 1.5 mg/dL (1.6-2.6); Osmolality,Calculated 299 (280-300); Phosphorous 2.3 mg/dL (2.7-4.5); Potassium 3.1 mEq/L (3.5-5.1); Sodium 142 mEq/L (136-145); eGFR For African Americans > 60 (> 60); eGFR For Non-African Americans > 60 (> 60)
[2017-10-25] MEDS: Aspirin 81 MG TAB.CHEW PO SCH (08:48)
[2017-10-25] MEDS: Docusate Oral Soln 100 MG/10 ML UDC PO SCH (08:48)
[2017-10-25] MEDS: Pantoprazole 40 MG VIAL IVP SCH (08:48)
[2017-10-25] MEDS: Nystatin Cream 15 GM TUBE TP SCH ×3 (08:49→22:02)
[2017-10-25 09:14] LABS: Basophils % 0.5 %; Eosinophils # 0.1 K/mcL (0.0-0.6); Eosinophils % 2.1 %; Hematocrit 23.9 % (35.3-44.9); Hemoglobin 7.6 g/dL (11.5-15.4); Immature Granulocytes % 2.1 % (0-4); Lymphocytes # 0.8 K/mcL (0.6-4.6); Lymphocytes % 13.5 %; Mean Corpuscular HGB Conc 31.8 g/dL (31.6-35.5); Mean Corpuscular Hemoglobin 25.5 pg (28.0-33.3); Mean Corpuscular Volume 80.2 fL (83.0-100.0); Neutrophils # 3.8 K/mcL (1.6-8.9); Platelet Count 340 K/mcL (140-400); Red Blood Count 2.98 M/mcL (3.82-4.97); Red Cell Distribution Width 15.5 % (11.5-14.5); Segmented Neutrophils % 64.8 %
--- NOTE | 2017-10-25 13:30 | Orthopedics Progress Note ---
Date of Encounter: 10/25/17 Time of Encounter: 13:28 Subjective Principal diagnosis: Cervical myelopathy, status post corpectomy and cervical fusion Interval history: The patient is slowly improving. Her mentation is essentially baseline and she is communicating verbally. She failed swallow evaluation for second time. . Afebrile vital signs are stable. Incision is clean dry and intact. She is still nonambulatory and has impairments in upper extremity function are improving now she can open and close fists bilaterally which was not apparent preoperatively. Assessment :stable status post corpectomy C4, cervical fusion C3-C6. Complicated by aspiration pneumonia., Postoperative blood loss anemia, dysphagia. Plan mobilize ,continue analgesics, continue antibiotics per pulmonary and hospitalist services, dietary consult obtained. PEG placed and she is receiving continuous tube feeds.. Objective Vital signs: Vital Signs Temp Pulse Resp BP Pulse Ox 10/25/17 11:22 97.1 F L 81 16 103/66 100 10/25/17 11:16 16 103/66 98 10/25/17 07:32 16 111/59 98 10/25/17 07:30 98.9 F 93 16 111/59 96 10/25/17 04:18 16 94 10/25/17 04:04 98.9 F 93 14 97/61 92 10/25/17 00:08 14 96 10/24/17 23:17 98.4 F 97 16 103/68 95 10/24/17 20:27 14 100 10/24/17 20:08 98.6 F 99 18 109/70 97 10/24/17 17:22 98.8 F 109 16 99/65 97 10/24/17 16:19 16 97 10/24/17 14:54 100 Intake and Output 10/24/17 10/25/17 10/25/17 23:59 07:59 15:59 Intake Total 400 / 400 150 / 150 30 / 30 Output Total 200 / 200 Balance 400 / 400 -50 / -50 30 / 30 Intake: IV Fluids 250 / 250 50 / 50 Zosyn Premix 3.375 GM/200 ML 3. 250 / 250 50 / 50 375 gm In 200 ml @ 50 mls/hr IVPB Q8H [facility] Rx#:[id number] Oral 0 / 0 Free Water Intake Amount 150 / 150 100 / 100 30 / 30 Output: Catheter 200 / 200 Other: Stool Size Large Stool Consistency loose Stool Color Brown # Bowel Movements 1 Blood Glucose* 218 239 189 - Labs CBC & BMP: 10/25/17 07:56 10/25/17 05:56 Labs: Abnormal lab results RBC 2.98 M/mcL (3.82-4.97) L 10/25/17 07:56 Hgb 7.6 g/dL (11.5-15.4) L 10/25/17 07:56 Hct 23.9 % (35.3-44.9) L 10/25/17 07:56 MCV 80.2 fL (83.0-100.0) L 10/25/17 07:56 MCH 25.5 pg (28.0-33.3) L 10/25/17 07:56 RDW 15.5 % (11.5-14.5) H 10/25/17 07:56 Nucleated RBCs/100 WBC 0.8 /100 WBC (0) H 10/19/17 03:47 ABG pH 7.49 pH Units (7.32-7.45) H 10/17/17 15:27 ABG pO2 63 mmHg (85-104) L 10/17/17 15:27 ABG Total CO2 28 mEq/L (20-26) H 10/17/17 15:27 ABG O2 Saturation 94 % (95-98) L 10/17/17 15:27 Potassium 3.1 mEq/L (3.5-5.1) L 10/25/17 05:56 Chloride 110 mEq/L (98-107) H 10/25/17 05:56 Glucose 187 mg/dL (70-105) H 10/25/17 05:56 POC Glucose 189 (58-89) H 10/25/17 12:07 Hemoglobin A1c 5.7 % (-5.6) H 10/18/17 04:08 Calcium 8.3 mg/dL (8.6-10.3) L 10/25/17 05:56 Phosphorus 2.3 mg/dL (2.7-4.5) L 10/25/17 05:56 Magnesium 1.5 mg/dL (1.6-2.6) L 10/25/17 05:56 Serum Total Protein 6.0 g/dL (6.4-8.9) L 10/22/17 06:18 Albumin 2.8 g/dL (3.5-5.7) L 10/22/17 06:18 Albumin/Globulin Ratio 0.9 (1.1-2.2) L 10/22/17 06:18 Prealbumin 12.4 mg/dL (17.0-34.0) L 10/22/17 08:06 - VTE Documentation of Mechanical Device: Intermittent pneumatic compression device Consult Discharge Plan - Plan Referrals: Betty Ortega PAC [Physician Branch Specialist] - 10/28/17 2:15 pm Skip John Jr, MD [Partnered Physician] - 01/16/18 11:30 am ([facility] [address] [address] ) NONE,PCP [Primary Care Provider] -
--- NOTE | 2017-10-25 14:50 | Internal Med Progress Note ---
Date of Encounter: 10/26/17 Time of Encounter: 14:48 - Subjective Interval history: HPI: 67 yr old woman who developed RLL (aspiration) PNA following cervical spine surgery. She's failed two swallow studies and developed severe dysphagia. A PEG tube was placed and dietary was consulted for TF plans. Jevity 1.5 started at 20 ml/hr continuously with goal of 40 ml/hr. So far tolerating TFs but stillat 20 ml/hr. Interval changes: Very responsive today and A&O x3 with no significant new complaints. BG increasing and Insulin adjusted Physical Exam: See below Cervical myelopathy: status post corpectomy and cervical fusion. Spine surgery following. She has significant bilateral UE weakness and will require ongoing PT /OT. RLL PNA (presumed to be aspiration PNA) Continue current antibiotics (Zosyn). Lungs sound clearer today. Dysphagia: S/p PEG tube placed and TFs started. She will need ongoing ST DM-2: SSI (med. scale) q4 while receiving continuous TFs. Low dose of Levimer added (5 units SQ BID) Physical exam: General appearance: Present: cooperative, mild distress, A&O X 3, answers questions appropriately - Head Head exam: Present: atraumatic, normocephalic - Eye Eye exam: Present: EOMI, PERRL, conjuntiva pink, sclera anicteric Pupils: Present: PERRL - Neck Neck exam general surgery: Present: tenderness, supple, trachea midline. Absent : lymphadenopathy, nuchal rigidity, thyromegaly - Respiratory Respiratory exam: Present: CTAB. Absent: accessory muscle use, rales, rhonchi, wheezes - Cardiovascular Cardiovascular exam: Present: RRR, +S1, +S2. Absent: diastolic murmur, gallop, rubs, systolic murmur - GI/Abdominal GI/Abdominal exam: Present: normal bowel sounds, soft, no peritoneal signs. Absent: distended, tenderness - Extremities Exam Extremities exam: Present: warm, radial pulses palpable and symmetrical. Absent : calf tenderness, cyanotic, pedal edema Bilateral UE weakness. - Neurological Exam Neurological exam: Present: CN II-XII intact, oriented X3, no focal deficits. Absent: pronater drift, facial droop, speech deficit - Skin Skin exam: Present: dry, intact - Constitutional Vitals: Temp Pulse Resp BP Pulse Ox 97.1 F L 81 16 103/66 100 10/25/17 11:22 10/25/17 11:22 10/25/17 11:22 10/25/17 11:22 10/25/17 11:22 General appearance: Present: cooperative, mild distress, A&O X 3, answers questions appropriately Internal Medicine: Result - Labs CBC & Chem 7: 10/25/17 07:56 10/25/17 05:56 Labs: Short CBC 10/25/17 Range/Units 07:56 WBC 5.8 (4.3-11.1) K/mcL Hgb 7.6 L (11.5-15.4) g/dL Hct 23.9 L (35.3-44.9) % Plt Count 340 (140-400) K/mcL Neutrophils # 3.8 (1.6-8.9) K/mcL BMP 10/25/17 05:56 Sodium 142 Potassium 3.1 L Chloride 110 H Carbon Dioxide 26 BUN 12 Creatinine 0.68 Glucose 187 H Calcium 8.3 L - ABG Interpretation ABG results: ABG ABG pH 7.49 pH Units (7.32-7.45) H 10/17/17 15:27 ABG pCO2 35 mmHg (35-45) 10/17/17 15:27 ABG pO2 63 mmHg (85-104) L 10/17/17 15:27 ABG O2 Saturation 94 % (95-98) L 10/17/17 15:27 - VTE Documentation of Mechanical Device: Intermittent pneumatic compression device Consult Discharge Plan - Plan Referrals: Betty Ortega PAC [Physician Product Director] - 10/28/17 2:15 pm Skip John Jr, MD [Partnered Physician] - 01/16/18 11:30 am ([facility] [place] [address] ) NONE,PCP [Primary Care Provider] -
[2017-10-25] MEDS ORDERED: Potassium Chloride 40 MEQ, Lidocaine 1% 2 ML in D5% in Water 500 ML IVPB ONE (15:39)
[2017-10-25] MEDS: Insulin DETEMIR 100 UNIT/ML X5UNITS SQ SCH (22:01)
[2017-10-25] MEDS: Docusate Oral Soln 100 MG/10 ML UDC GTUBE SCH (22:02)
[2017-10-26] MEDS: Insulin LISPRO 300 UNITS/3 ML VIAL SQ SCH ×6 (00:18→20:10)
[2017-10-26] MEDS: Piperacillin/Tazobactam 3.375 GM/200 ML BAG IVPB SCH ×3 (04:17→19:27)
[2017-10-26] MEDS: Ipratropium/Albuterol Neb 3 ML IH SCH ×6 (04:47→23:04)
[2017-10-26] MEDS: *HR* Heparin 5,000 UNIT/ML VIAL SQ SCH ×3 (05:57→22:03)
[2017-10-26 07:58] LABS: Basophils % 0.4 %; Eosinophils # 0.1 K/mcL (0.0-0.6); Hematocrit 24.9 % (35.3-44.9); Hemoglobin 7.7 g/dL (11.5-15.4); Immature Granulocytes % 1.1 % (0-4); Lymphocytes # 0.5 K/mcL (0.6-4.6); Lymphocytes % 8.7 %; Mean Corpuscular HGB Conc 30.9 g/dL (31.6-35.5); Mean Corpuscular Volume 80.8 fL (83.0-100.0); Mean Platelet Volume 9.9 fL (9.4-12.4); Monocytes # 0.7 K/mcL (0.0-1.3); Monocytes % 12.4 %; Neutrophils # 4.1 K/mcL (1.6-8.9); Nucleated Red Blood Cells 0.4 /100 WBC (0); Platelet Count 340 K/mcL (140-400); Red Blood Count 3.08 M/mcL (3.82-4.97); Red Cell Distribution Width 15.4 % (11.5-14.5); Segmented Neutrophils % 75.4 %
[2017-10-26 08:13] LABS: BUN/Creatinine Ratio 22 (6-26); Blood Urea Nitrogen 14 mg/dL (8-23); Carbon Dioxide 23 mEq/L (23-29); Chloride 108 mEq/L (98-107); Glucose 221 mg/dL (70-105); Osmolality,Calculated 295 (280-300); Potassium 3.6 mEq/L (3.5-5.1); Sodium 139 mEq/L (136-145); eGFR For African Americans > 60 (> 60); eGFR For Non-African Americans > 60 (> 60)
[2017-10-26] MEDS: Docusate Oral Soln 100 MG/10 ML UDC GTUBE SCH ×2 (09:18→22:04)
[2017-10-26] MEDS: Aspirin 81 MG TAB.CHEW PO SCH (09:19)
[2017-10-26] MEDS: Pantoprazole 40 MG VIAL IVP SCH (09:19)
[2017-10-26] MEDS: Insulin DETEMIR 100 UNIT/ML X5UNITS SQ SCH ×2 (09:21→22:03)
[2017-10-26] MEDS: Nystatin Cream 15 GM TUBE TP SCH ×3 (09:22→22:03)
--- NOTE | 2017-10-26 12:07 | Orthopedics Progress Note ---
Date of Encounter: 10/26/17 Time of Encounter: 12:05 Subjective Principal diagnosis: Cervical myelopathy, status post corpectomy and cervical fusion Interval history: The patient was seen and evaluated this morning. She has no complaints and pain is well-controlled. Afebrile and vital signs are stable Cervical spine incision is clean, dry, and intact with Steri-Strips She grossly motors the bilateral upper and lower extremities ACDF C C3-C6 after C4 corpectomy; aspiration pneumonia; PEG tube Plan: Resume postoperative care Appreciate hospitalist support Anticipate discharge on Friday Objective Vital signs: Vital Signs Temp Pulse Resp BP Pulse Ox 10/26/17 11:39 98.0 F 93 18 117/73 96 10/26/17 08:05 20 95 10/26/17 07:14 97.9 F 97 17 121/75 93 10/26/17 04:47 16 95 10/26/17 04:37 97.9 F 95 16 115/71 95 10/25/17 23:55 16 98 10/25/17 23:20 97.4 F L 88 17 117/76 94 10/25/17 20:11 16 97 10/25/17 19:48 98.7 F 84 17 97/62 97 10/25/17 15:41 16 97 10/25/17 15:12 8.1 F L 89 16 108/65 97 Intake and Output 10/25/17 10/26/17 10/26/17 23:59 07:59 15:59 Intake Total 1053 / 1053 200 / 200 300 / 300 Output Total 300 / 300 200 / 200 Balance 753 / 753 200 / 200 100 / 100 Intake: IV Fluids 200 / 200 200 / 200 Zosyn Premix 3.375 GM/200 ML 3. 200 / 200 200 / 200 375 gm In 200 ml @ 50 mls/hr IVPB Q8H [facility] Rx#:[id number] Tube Feeding 553 / 553 Free Water 100 / 100 Free Water Intake Amount 200 / 200 200 / 200 100 / 100 Output: Catheter 300 / 300 200 / 200 Other: Stool Size Copious Smear Stool Consistency liquid soft Stool Color Brown Brown Yellow # Bowel Movements 1 # Bowel Movement Diapers 1 Blood Glucose* 233 217 212 - Labs CBC & BMP: 10/26/17 07:23 10/26/17 07:23 Labs: Abnormal lab results RBC 3.08 M/mcL (3.82-4.97) L 10/26/17 07:23 Hgb 7.7 g/dL (11.5-15.4) L 10/26/17 07:23 Hct 24.9 % (35.3-44.9) L 10/26/17 07:23 MCV 80.8 fL (83.0-100.0) L 10/26/17 07:23 MCH 25.0 pg (28.0-33.3) L 10/26/17 07:23 MCHC 30.9 g/dL (31.6-35.5) L 10/26/17 07:23 RDW 15.4 % (11.5-14.5) H 10/26/17 07:23 Lymphocytes # 0.5 K/mcL (0.6-4.6) L 10/26/17 07:23 Nucleated RBCs/100 WBC 0.4 /100 WBC (0) H 10/26/17 07:23 ABG pH 7.49 pH Units (7.32-7.45) H 10/17/17 15:27 ABG pO2 63 mmHg (85-104) L 10/17/17 15:27 ABG Total CO2 28 mEq/L (20-26) H 10/17/17 15:27 ABG O2 Saturation 94 % (95-98) L 10/17/17 15:27 Chloride 108 mEq/L (98-107) H 10/26/17 07:23 Glucose 221 mg/dL (70-105) H 10/26/17 07:23 POC Glucose 212 (58-89) H 10/26/17 11:39 Hemoglobin A1c 5.7 % (-5.6) H 10/18/17 04:08 Calcium 8.0 mg/dL (8.6-10.3) L 10/26/17 07:23 Phosphorus 2.3 mg/dL (2.7-4.5) L 10/25/17 05:56 Magnesium 1.5 mg/dL (1.6-2.6) L 10/25/17 05:56 Serum Total Protein 6.0 g/dL (6.4-8.9) L 10/22/17 06:18 Albumin 2.8 g/dL (3.5-5.7) L 10/22/17 06:18 Albumin/Globulin Ratio 0.9 (1.1-2.2) L 10/22/17 06:18 Prealbumin 12.4 mg/dL (17.0-34.0) L 10/22/17 08:06 - VTE Documentation of Mechanical Device: Intermittent pneumatic compression device Consult Discharge Plan - Plan Referrals: Betty Ortega, PAC [Physician Maturity Checker] - 10/28/17 2:15 pm Skip John Jr, MD [Partnered Physician] - 01/16/18 11:30 am ([facility] [place] [address] ) NONE,PCP [Primary Care Provider] -
--- NOTE | 2017-10-26 18:15 | Internal Med Progress Note ---
Date of Encounter: 10/26/17 Time of Encounter: 17:30 - Subjective Interval history: HPI: 67 yr old woman who developed RLL (aspiration) PNA following cervical spine surgery. She's failed two swallow studies and developed severe dysphagia. A PEG tube was placed and dietary was consulted for TF plans. Jevity 1.5 started at 20 ml/hr continuously with goal of 40 ml/hr. So far tolerating TFs and advanced today to 30 ml/hr. Her blood glucose has increased despite Q4 hr SSI so Levimer was added yesterday and increased today. Interval changes: Very responsive today and A&O x3 with no significant new complaints. BG increasing and Insulin adjusted Physical Exam: See below Cervical myelopathy: status post corpectomy and cervical fusion. Spine surgery following. She has significant bilateral UE weakness and will require ongoing PT /OT. RLL PNA (presumed to be aspiration PNA) Continue current antibiotics (Zosyn). Lungs sound clearer today. Dysphagia: S/p PEG tube placed and TFs started. She will need ongoing ST DM-2: SSI (med. scale) q4 while receiving continuous TFs. Low dose of Levimer added (5 units SQ BID) Physical exam: General appearance: Present: cooperative, mild distress, A&O X 3, answers questions appropriately - Head Head exam: Present: atraumatic, normocephalic - Eye Eye exam: Present: EOMI, PERRL, conjuntiva pink, sclera anicteric Pupils: Present: PERRL - Neck Neck exam general surgery: Present: tenderness, supple, trachea midline. Absent : lymphadenopathy, nuchal rigidity, thyromegaly - Respiratory Respiratory exam: Present: CTAB. Absent: accessory muscle use, rales, rhonchi, wheezes - Cardiovascular Cardiovascular exam: Present: RRR, +S1, +S2. Absent: diastolic murmur, gallop, rubs, systolic murmur - GI/Abdominal GI/Abdominal exam: Present: normal bowel sounds, soft, no peritoneal signs. Absent: distended, tenderness - Extremities Exam Extremities exam: Present: warm, radial pulses palpable and symmetrical. Absent : calf tenderness, cyanotic, pedal edema Bilateral UE weakness. - Neurological Exam Neurological exam: Present: CN II-XII intact, oriented X3, no focal deficits. Absent: pronater drift, facial droop, speech deficit - Skin Skin exam: Present: dry, intact - Constitutional Vitals: Temp Pulse Resp BP Pulse Ox 98.5 F 96 16 125/76 93 10/26/17 16:29 10/26/17 16:29 10/26/17 16:29 10/26/17 16:29 10/26/17 16:29 General appearance: Present: cooperative, mild distress, A&O X 3, pleasant, answers questions appropriately - Head Head exam: Present: atraumatic, normocephalic - Eye Eye exam: Present: EOMI, PERRL, scleral icterus, sclera anicteric Pupils: Present: PERRL - Neck Neck exam general surgery: Present: supple, trachea midline. Absent: nuchal rigidity, thyromegaly - Respiratory Respiratory exam: Present: CTAB. Absent: decreased breath sounds, rales, respiratory distress, rhonchi, stridor, wheezes, tachypnea - GI/Abdominal GI/Abdominal exam: Present: normal bowel sounds, soft, no peritoneal signs. Absent: diminished bowel sounds, distended, firm, guarding, rebound, rigid - Psychiatric Psychiatric exam: Present: normal affect, normal mood Internal Medicine: Result - Labs CBC & Chem 7: 10/26/17 07:23 10/26/17 07:23 Labs: Short CBC 10/26/17 Range/Units 07:23 WBC 5.4 (4.3-11.1) K/mcL Hgb 7.7 L (11.5-15.4) g/dL Hct 24.9 L (35.3-44.9) % Plt Count 340 (140-400) K/mcL Neutrophils # 4.1 (1.6-8.9) K/mcL BMP 10/26/17 07:23 Sodium 139 Potassium 3.6 Chloride 108 H Carbon Dioxide 23 BUN 14 Creatinine 0.65 Glucose 221 H Calcium 8.0 L - ABG Interpretation ABG results: ABG ABG pH 7.49 pH Units (7.32-7.45) H 10/17/17 15:27 ABG pCO2 35 mmHg (35-45) 10/17/17 15:27 ABG pO2 63 mmHg (85-104) L 10/17/17 15:27 ABG O2 Saturation 94 % (95-98) L 10/17/17 15:27 - Impressions Impressions Videofluoroscopic Swallow 10/22/17 11:35 IMPRESSION: Dysphagia as described above. Please see separate speech pathology report for full discussion of findings and recommendations. D/ / 10/22/2017 16:16:25 Pratik Roman MD / earnold Interpreting Provider: Pratik Roman MD - VTE Documentation of Mechanical Device: Intermittent pneumatic compression device Consult Discharge Plan - Plan Referrals: Betty Ortega PAC [Physician Jute Bag Sewer] - 10/28/17 2:15 pm Skip John Jr, MD [Partnered Physician] - 01/16/18 11:30 am ([facility] [address] [address] ) NONE,PCP [Primary Care Provider] -
[2017-10-26] MEDS ORDERED: Ketorolac 30 MG/ML VIAL IVP PRN (19:59)
[2017-10-27] MEDS: Insulin LISPRO 300 UNITS/3 ML VIAL SQ SCH ×6 (00:25→23:03)
[2017-10-27] MEDS: Ipratropium/Albuterol Neb 3 ML IH SCH ×6 (03:32→23:54)
[2017-10-27] MEDS: Piperacillin/Tazobactam 3.375 GM/200 ML BAG IVPB SCH (03:47)
[2017-10-27] MEDS: *HR* Heparin 5,000 UNIT/ML VIAL SQ SCH ×3 (06:17→23:01)
[2017-10-27] MEDS: Pantoprazole 40 MG VIAL IVP SCH (07:39)
[2017-10-27] MEDS: Docusate Oral Soln 100 MG/10 ML UDC GTUBE SCH ×2 (07:39→23:01)
[2017-10-27] MEDS: Aspirin 81 MG TAB.CHEW PO SCH (07:40)
[2017-10-27] MEDS: Nystatin Cream 15 GM TUBE TP SCH ×3 (07:40→23:03)
[2017-10-27] MEDS: Insulin DETEMIR 100 UNIT/ML X5UNITS SQ SCH ×2 (09:13→23:02)
[2017-10-27] MEDS ORDERED: OXYCODONE Oral CONC 10 MG/0.5 ML ORAL.SYG PO PRN (09:45)
[2017-10-27 09:49] LABS: Basophils % 0.5 %; Eosinophils # 0.1 K/mcL (0.0-0.6); Eosinophils % 1.8 %; Hemoglobin 7.9 g/dL (11.5-15.4); Immature Granulocytes % 0.8 % (0-4); Lymphocytes # 0.7 K/mcL (0.6-4.6); Lymphocytes % 10.9 %; Mean Corpuscular HGB Conc 30.4 g/dL (31.6-35.5); Mean Corpuscular Volume 82.3 fL (83.0-100.0); Mean Platelet Volume 9.9 fL (9.4-12.4); Monocytes # 0.8 K/mcL (0.0-1.3); Monocytes % 12.2 %; Neutrophils # 4.8 K/mcL (1.6-8.9); Platelet Count 325 K/mcL (140-400); Red Blood Count 3.16 M/mcL (3.82-4.97); Red Cell Distribution Width 15.5 % (11.5-14.5); Segmented Neutrophils % 73.8 %
[2017-10-27 10:04] LABS: BUN/Creatinine Ratio 24 (6-26); Blood Urea Nitrogen 16 mg/dL (8-23); Carbon Dioxide 24 mEq/L (23-29); Chloride 105 mEq/L (98-107); Glucose 173 mg/dL (70-105); Osmolality,Calculated 287 (280-300); Potassium 3.6 mEq/L (3.5-5.1); Sodium 136 mEq/L (136-145); eGFR For African Americans > 60 (> 60); eGFR For Non-African Americans > 60 (> 60)
[2017-10-27] MEDS ORDERED: OXYCODONE Oral CONC 10 MG/0.5 ML ORAL.SYG SL PRN (10:10)
--- NOTE | 2017-10-27 11:07 | Spine Progress Note ---
Date of Encounter: 10/27/17 Time of Encounter: 11:06 Subjective Principal diagnosis: Cervical myelopathy, status post corpectomy and cervical fusion Interval history: The patient is slowly improving. Her mentation is essentially baseline and she is communicating verbally. Afebrile vital signs are stable. Incision is clean dry and intact. She is still nonambulatory and has impairments in upper extremity function are improving now she can open and close fists bilaterally which was not apparent preoperatively. Assessment :stable status post corpectomy C4, cervical fusion C3-C6. Complicated by aspiration pneumonia., Postoperative blood loss anemia, dysphagia. Plan mobilize ,continue analgesics , continue antibiotics per pulmonary and hospitalist services, dietary consult obtained. PEG placed and she is receiving continuous tube feeds.. Awaiting rehabilitation placement. Objective Vital signs: Vital Signs Temp Pulse Resp BP Pulse Ox 10/27/17 07:56 20 97 10/27/17 06:53 99.4 F 89 20 126/77 97 10/27/17 03:55 98.5 F 89 18 120/77 96 10/27/17 03:32 16 96 10/26/17 23:50 98.7 F 91 16 112/55 95 10/26/17 23:04 16 96 10/26/17 19:57 98.6 F 91 18 104/67 95 10/26/17 19:53 16 97 10/26/17 16:29 98.5 F 96 16 125/76 93 10/26/17 16:05 20 96 10/26/17 12:01 16 97 10/26/17 11:39 98.0 F 93 18 117/73 96 Intake and Output 10/26/17 10/27/17 10/27/17 23:59 07:59 15:59 Intake Total 200 / 200 475 / 475 Output Total 75 / 75 0 / 0 Balance 125 / 125 475 / 475 Intake: IV Fluids 200 / 200 Zosyn Premix 3.375 GM/200 ML 3. 200 / 200 375 gm In 200 ml @ 50 mls/hr IVPB Q8H [facility] Rx#:[id number] Oral 0 / 0 Free Water 100 / 100 Free Water Intake Amount 100 / 100 275 / 275 Output: Catheter 75 / 75 0 / 0 Other: Meal NPO Blood Glucose* 215 246 - Labs CBC & BMP: 10/27/17 09:32 10/27/17 09:32 Labs: Abnormal lab results RBC 3.16 M/mcL (3.82-4.97) L 10/27/17 09:32 Hgb 7.9 g/dL (11.5-15.4) L 10/27/17 09:32 Hct 26.0 % (35.3-44.9) L 10/27/17 09:32 MCV 82.3 fL (83.0-100.0) L 10/27/17 09:32 MCH 25.0 pg (28.0-33.3) L 10/27/17 09:32 MCHC 30.4 g/dL (31.6-35.5) L 10/27/17 09:32 RDW 15.5 % (11.5-14.5) H 10/27/17 09:32 Nucleated RBCs/100 WBC 0.4 /100 WBC (0) H 10/26/17 07:23 ABG pH 7.49 pH Units (7.32-7.45) H 10/17/17 15:27 ABG pO2 63 mmHg (85-104) L 10/17/17 15:27 ABG Total CO2 28 mEq/L (20-26) H 10/17/17 15:27 ABG O2 Saturation 94 % (95-98) L 10/17/17 15:27 Glucose 173 mg/dL (70-105) H 10/27/17 09:32 POC Glucose 246 (58-89) H 10/27/17 06:57 Hemoglobin A1c 5.7 % (-5.6) H 10/18/17 04:08 Calcium 8.0 mg/dL (8.6-10.3) L 10/27/17 09:32 Phosphorus 2.3 mg/dL (2.7-4.5) L 10/25/17 05:56 Magnesium 1.5 mg/dL (1.6-2.6) L 10/25/17 05:56 Serum Total Protein 6.0 g/dL (6.4-8.9) L 10/22/17 06:18 Albumin 2.8 g/dL (3.5-5.7) L 10/22/17 06:18 Albumin/Globulin Ratio 0.9 (1.1-2.2) L 10/22/17 06:18 Prealbumin 12.4 mg/dL (17.0-34.0) L 10/22/17 08:06 Consult Discharge Plan - Plan Referrals: Betty Ortega PAC [Physician Municipal Firefighter] - 10/28/17 2:15 pm Skip John Jr, MD [Partnered Physician] - 01/16/18 11:30 am ([facility] [address] [address] ) NONE,PCP [Primary Care Provider] -
--- NOTE | 2017-10-27 20:55 | Internal Med Progress Note ---
Date of Encounter: 10/27/17 Time of Encounter: 15:35 - Subjective Interval history: HPI: 67 yr old woman who developed RLL (aspiration) PNA following cervical spine surgery. She's failed two swallow studies and developed severe dysphagia. A PEG tube was placed and dietary was consulted for TF plans. Jevity 1.5 started at 20 ml/hr continuously with goal of 40 ml/hr. So far tolerating TFs and advanced today to goal today (40 ml/hr). Her blood glucose has increased despite Q4 hr SSI so Levimer was added yesterday and increased today. Interval changes: Very responsive today and A&O x3 with no significant new complaints. Physical Exam: See below Cervical myelopathy: status post corpectomy and cervical fusion. Spine surgery following. She has significant bilateral UE weakness and will require ongoing PT /OT. SALES BRANCH MANAGER looking for placement. Possible [facility] soon. RLL PNA (presumed to be aspiration PNA) Continue current antibiotics (Zosyn). Lungs sound clearer today. Dysphagia: S/p PEG tube placed and TFs started. She will need ongoing ST DM-2: SSI (med. scale) q4 while receiving continuous TFs. Low dose of Levimer added (5 units SQ BID) Physical exam: General appearance: Present: cooperative, mild distress, A&O X 3, answers questions appropriately - Head Head exam: Present: atraumatic, normocephalic - Eye Eye exam: Present: EOMI, PERRL, conjuntiva pink, sclera anicteric Pupils: Present: PERRL - Neck Neck exam general surgery: Present: tenderness, supple, trachea midline. Absent : lymphadenopathy, nuchal rigidity, thyromegaly - Respiratory Respiratory exam: Present: CTAB. Absent: accessory muscle use, rales, rhonchi, wheezes - Cardiovascular Cardiovascular exam: Present: RRR, +S1, +S2. Absent: diastolic murmur, gallop, rubs, systolic murmur - GI/Abdominal GI/Abdominal exam: Present: normal bowel sounds, soft, no peritoneal signs. Absent: distended, tenderness - Extremities Exam Extremities exam: Present: warm, radial pulses palpable and symmetrical. Absent : calf tenderness, cyanotic, pedal edema Bilateral UE weakness. - Neurological Exam Neurological exam: Present: CN II-XII intact, oriented X3, no focal deficits. Absent: pronater drift, facial droop, speech deficit - Skin Skin exam: Present: dry, intact - Constitutional Vitals: Temp Pulse Resp BP Pulse Ox 98.9 F 94 16 117/74 97 10/27/17 15:04 10/27/17 15:04 10/27/17 20:46 10/27/17 15:04 10/27/17 20:46 General appearance: Present: cooperative, mild distress, A&O X 3, pleasant, answers questions appropriately Internal Medicine: Result - Labs CBC & Chem 7: 10/27/17 09:32 10/27/17 09:32 Labs: Short CBC 10/27/17 Range/Units 09:32 WBC 6.5 (4.3-11.1) K/mcL Hgb 7.9 L (11.5-15.4) g/dL Hct 26.0 L (35.3-44.9) % Plt Count 325 (140-400) K/mcL Neutrophils # 4.8 (1.6-8.9) K/mcL BMP 10/27/17 09:32 Sodium 136 Potassium 3.6 Chloride 105 Carbon Dioxide 24 BUN 16 Creatinine 0.66 Glucose 173 H Calcium 8.0 L - ABG Interpretation ABG results: ABG ABG pH 7.49 pH Units (7.32-7.45) H 10/17/17 15:27 ABG pCO2 35 mmHg (35-45) 10/17/17 15:27 ABG pO2 63 mmHg (85-104) L 10/17/17 15:27 ABG O2 Saturation 94 % (95-98) L 10/17/17 15:27 - VTE Documentation of Mechanical Device: Intermittent pneumatic compression device Consult Discharge Plan - Plan Referrals: Betty Ortega PAC [Physician General Manager In Training] - 10/28/17 2:15 pm Skip John Jr, MD [Partnered Physician] - 01/16/18 11:30 am ([facility] [address] [address] ) NONE,PCP [Primary Care Provider] -
[2017-10-28] MEDS: Insulin LISPRO 300 UNITS/3 ML VIAL SQ SCH ×6 (02:44→21:50)
[2017-10-28] MEDS: Ipratropium/Albuterol Neb 3 ML IH SCH ×5 (04:57→20:27)
[2017-10-28] MEDS: *HR* Heparin 5,000 UNIT/ML VIAL SQ SCH ×3 (05:54→21:50)
[2017-10-28 07:34] LABS: Basophils % 0.2 %; Eosinophils # 0.1 K/mcL (0.0-0.6); Eosinophils % 2.1 %; Hematocrit 25.9 % (35.3-44.9); Immature Granulocytes % 0.9 % (0-4); Lymphocytes # 0.7 K/mcL (0.6-4.6); Lymphocytes % 14.2 %; Mean Corpuscular HGB Conc 30.9 g/dL (31.6-35.5); Mean Corpuscular Hemoglobin 25.1 pg (28.0-33.3); Mean Corpuscular Volume 81.2 fL (83.0-100.0); Mean Platelet Volume 9.9 fL (9.4-12.4); Monocytes # 0.6 K/mcL (0.0-1.3); Monocytes % 12.7 %; Neutrophils # 3.3 K/mcL (1.6-8.9); Platelet Count 300 K/mcL (140-400); Red Blood Count 3.19 M/mcL (3.82-4.97); Red Cell Distribution Width 15.7 % (11.5-14.5); Segmented Neutrophils % 69.9 %
[2017-10-28] MEDS: Aspirin 81 MG TAB.CHEW PO SCH (08:27)
[2017-10-28] MEDS: Docusate Oral Soln 100 MG/10 ML UDC GTUBE SCH ×2 (08:27→21:50)
[2017-10-28] MEDS: Pantoprazole 40 MG VIAL IVP SCH (08:27)
[2017-10-28] MEDS: Nystatin Cream 15 GM TUBE TP SCH ×3 (08:28→21:50)
[2017-10-28] MEDS: Insulin DETEMIR 100 UNIT/ML X5UNITS SQ SCH ×2 (08:28→21:50)
--- NOTE | 2017-10-28 08:35 | Internal Med Progress Note ---
Date of Encounter: 10/28/17 Time of Encounter: 08:32 - Assessment and plan (1) Dysphagia causing pulmonary aspiration with swallowing Current Visit: Yes Status: Acute Assessment and plan: PEG tube has been placed. Increase tube feeds to 40. (2) Pneumonia Current Visit: Yes Status: Suspected Assessment and plan: aspiration pneumonia. She has been adequately treated for about 10 days of IV antibiotics. I will stop Zosyn today. She is on room air. Continue nebulizers. Qualifiers: Pneumonia type: due to unspecified organism Laterality: right Lung location: lower lobe of lung Qualified Code(s): J18.1 - Lobar pneumonia, unspecified organism (3) HTN (hypertension) Current Visit: Yes Status: Chronic Assessment and plan: Continue with Coreg. Blood pressure stable. Qualifiers: Hypertension type: essential hypertension Qualified Code(s): I10 - Essential (primary) hypertension (4) Diabetes Current Visit: Yes Status: Chronic Assessment and plan: Continue with insulin Levemir 10 units twice a day. Continue with insulin sliding scale. Patient may go on her previous home regimen at discharge. Qualifiers: Diabetes mellitus type: type 2 Diabetes mellitus complication status: with unspecified complications Diabetes mellitus half-way insulin use: without emt intermediate use Qualified Code(s): E11.8 - Type 2 diabetes mellitus with unspecified complications (5) Status post cervical spinal fusion Current Visit: Yes Status: Acute Assessment and plan: Continue with pain control. Continue physical therapy. Follow-up with orthopedics. (6) DVT prophylaxis Current Visit: Yes Status: Acute Assessment and plan: Heparin subcutaneous - Subjective Interval history: Patient was seen and examined. She was admitted for cervical spine surgery. Status post cervical surgery complicated by dysphagia and respiratory failure due to aspiration pneumonia. She has been on 10 days of IV antibiotics. Was in the ICU for a couple days before transfer. She has been doing well as of recently. The PEG tube has been placed and has tube feeds running at goal. She has been afebrile. Denies any pain. - Constitutional Vitals: Temp Pulse Resp BP Pulse Ox 98.2 F 94 18 129/77 94 10/28/17 07:04 10/28/17 07:04 10/28/17 08:26 10/28/17 07:04 10/28/17 08:26 General appearance: Present: cooperative, mild distress, A&O X 3, pleasant, answers questions appropriately Exam: GEN: NAD CVS: RRR. S1, S2, No m/r/g RESP: CTAB ABD: Soft, NT, ND, +BS PEG tube noted. EXT: No edema. 2+ DP. No rashes NEURO: Nonfocal Internal Medicine: Result - Labs CBC & Chem 7: 10/28/17 07:02 10/27/17 09:32 Labs: Short CBC 10/27/17 10/28/17 Range/Units 09:32 07:02 WBC 6.5 4.7 (4.3-11.1) K/mcL Hgb 7.9 L 8.0 L (11.5-15.4) g/dL Hct 26.0 L 25.9 L (35.3-44.9) % Plt Count 325 300 (140-400) K/mcL Neutrophils # 4.8 3.3 (1.6-8.9) K/mcL BMP 10/27/17 09:32 Sodium 136 Potassium 3.6 Chloride 105 Carbon Dioxide 24 BUN 16 Creatinine 0.66 Glucose 173 H Calcium 8.0 L - ABG Interpretation ABG results: ABG ABG pH 7.49 pH Units (7.32-7.45) H 10/17/17 15:27 ABG pCO2 35 mmHg (35-45) 10/17/17 15:27 ABG pO2 63 mmHg (85-104) L 10/17/17 15:27 ABG O2 Saturation 94 % (95-98) L 10/17/17 15:27 - VTE Documentation of Mechanical Device: Intermittent pneumatic compression device Consult Discharge Plan - Plan Referrals: Betty Ortega, CLIFF [Physician Senior Market Research Analyst] - 10/28/17 2:15 pm Skip John Jr, MD [Partnered Physician] - 01/16/18 11:30 am ([facility] [address] [address] ) NONE,PCP [Primary Care Provider] -
[2017-10-28 10:33] LABS: BUN/Creatinine Ratio 21 (6-26); Blood Urea Nitrogen 14 mg/dL (8-23); Carbon Dioxide 26 mEq/L (23-29); Chloride 105 mEq/L (98-107); Glucose 177 mg/dL (70-105); Osmolality,Calculated 291 (280-300); Potassium 3.9 mEq/L (3.5-5.1); Sodium 138 mEq/L (136-145); eGFR For African Americans > 60 (> 60); eGFR For Non-African Americans > 60 (> 60)
[2017-10-28] MEDS ORDERED: *HR* OxyCODONE Oral Soln 5 MG/5 ML UD.LIQ GTUBE PRN (16:00)
[2017-10-29] MEDS: Ipratropium/Albuterol Neb 3 ML IH SCH ×3 (00:19→07:42)
[2017-10-29] MEDS: Insulin LISPRO 300 UNITS/3 ML VIAL SQ SCH ×3 (01:32→08:54)
[2017-10-29] MEDS: *HR* Heparin 5,000 UNIT/ML VIAL SQ SCH (06:00)
[2017-10-29 07:33] VITALS: BP 139/68
--- NOTE | 2017-10-29 07:33 | Internal Med Progress Note ---
Date of Encounter: 10/29/17 Time of Encounter: 07:31 - Assessment and plan (1) Dysphagia causing pulmonary aspiration with swallowing Current Visit: Yes Status: Acute Assessment and plan: PEG tube has been placed. tube feeds at 40. patient is stable for d/c from hospitalist stand point (2) Pneumonia Current Visit: Yes Status: Suspected Assessment and plan: aspiration pneumonia. She has been adequately treated for about 10 days of IV antibiotics. stopped Zosyn 10/29. She is on room air. Continue nebulizers. Qualifiers: Pneumonia type: due to unspecified organism Laterality: right Lung location: lower lobe of lung Qualified Code(s): J18.1 - Lobar pneumonia, unspecified organism (3) HTN (hypertension) Current Visit: Yes Status: Chronic Assessment and plan: Continue with Coreg. Blood pressure stable. Qualifiers: Hypertension type: essential hypertension Qualified Code(s): I10 - Essential (primary) hypertension (4) Diabetes Current Visit: Yes Status: Chronic Assessment and plan: Continue with insulin Levemir 10 units twice a day. Continue with insulin sliding scale. Patient may go on her previous home regimen at discharge. Qualifiers: Diabetes mellitus type: type 2 Diabetes mellitus complication status: with unspecified complications Diabetes mellitus maintenance instructor insulin use: without retirement use Qualified Code(s): E11.8 - Type 2 diabetes mellitus with unspecified complications (5) Status post cervical spinal fusion Current Visit: Yes Status: Acute Assessment and plan: Continue with pain control. Continue physical therapy. Follow-up with orthopedics. (6) DVT prophylaxis Current Visit: Yes Status: Acute Assessment and plan: Heparin subcutaneous - Subjective Interval history: Patient was seen and examined. No acute events. She has been afebrile. Pain is well controlled. She was admitted for cervical spine surgery. Status post cervical surgery complicated by dysphagia and respiratory failure due to aspiration pneumonia. She has been on 10 days of IV antibiotics. Was in the ICU for a couple days before transfer. She has been doing well as of recently. The PEG tube has been placed and has tube feeds running at goal. . - Constitutional Vitals: Temp Pulse Resp BP Pulse Ox 98.3 F 97 15 133/71 100 10/29/17 03:38 10/29/17 03:38 10/29/17 04:44 10/29/17 03:38 10/29/17 04:44 General appearance: Present: cooperative, mild distress, A&O X 3, pleasant, answers questions appropriately Exam: GEN: NAD CVS: RRR. S1, S2, No m/r/g RESP: CTAB ABD: Soft, NT, ND, +BS PEG tube noted. EXT: No edema. 2+ DP. No rashes NEURO: Nonfocal Internal Medicine: Result - Labs CBC & Chem 7: 10/28/17 07:02 10/28/17 07:02 Labs: Short CBC 10/28/17 Range/Units 07:02 WBC 4.7 (4.3-11.1) K/mcL Hgb 8.0 L (11.5-15.4) g/dL Hct 25.9 L (35.3-44.9) % Plt Count 300 (140-400) K/mcL Neutrophils # 3.3 (1.6-8.9) K/mcL BMP 10/28/17 07:02 Sodium 138 Potassium 3.9 Chloride 105 Carbon Dioxide 26 BUN 14 Creatinine 0.66 Glucose 177 H Calcium 8.0 L - ABG Interpretation ABG results: ABG ABG pH 7.49 pH Units (7.32-7.45) H 10/17/17 15:27 ABG pCO2 35 mmHg (35-45) 10/17/17 15:27 ABG pO2 63 mmHg (85-104) L 10/17/17 15:27 ABG O2 Saturation 94 % (95-98) L 10/17/17 15:27 - VTE Documentation of Mechanical Device: Intermittent pneumatic compression device Consult Discharge Plan - Plan Referrals: Betty Ortega PAC [Physician Hop Separator] - 10/28/17 2:15 pm Skip John Jr, MD [Partnered Physician] - 01/16/18 11:30 am ([facility] [address] [address] ) NONE,PCP [Primary Care Provider] - Prescriptions: OxyCODONE Oral Soln [OxyCODONE ORAL SOLN] 10 mg GTUBE Q6H PRN 3 Days #120 ml PRN Reason: Pain
--- NOTE | 2017-10-29 07:37 | Spine Progress Note ---
Date of Encounter: 10/28/17 Time of Encounter: 12:36 Subjective Principal diagnosis: Cervical myelopathy, status post corpectomy and cervical fusion Interval history: The patient is slowly improving. Her mentation is essentially baseline and she is communicating verbally. Tube feeds going well. Afebrile vital signs are stable. Incision is clean dry and intact. She is still nonambulatory and has impairments in upper extremity function are improving now she can open and close fists bilaterally which was not apparent preoperatively. Assessment : stable status post corpectomy C4, cervical fusion C3-C6. Complicated by aspiration pneumonia., Postoperative blood loss anemia, dysphagia. Plan mobilize ,continue analgesics, continue antibiotics per pulmonary and hospitalist services, plan for rehabilitation tomorrow. Objective Vital signs: Vital Signs Temp Pulse Resp BP Pulse Ox 10/29/17 07:30 98.7 F 89 16 139/68 97 10/29/17 04:44 15 100 10/29/17 03:38 98.3 F 97 20 133/71 100 10/29/17 00:20 23 98 10/28/17 22:41 98.2 F 87 16 116/73 95 10/28/17 20:27 18 95 10/28/17 18:55 98.0 F 90 14 111/70 95 10/28/17 16:46 16 95 10/28/17 15:27 98.4 F 90 16 121/76 96 10/28/17 13:31 97.9 F 94 24 118/60 95 10/28/17 12:24 98.7 F 89 17 122/74 93 10/28/17 12:03 16 94 10/28/17 08:26 18 94 Intake and Output 10/28/17 10/28/17 10/29/17 15:59 23:59 07:59 Intake Total 400 / 400 0 / 0 200 / 200 Output Total 850 / 850 0 / 0 Balance 400 / 400 -850 / -850 200 / 200 Intake: Oral 0 / 0 0 / 0 Free Water Intake Amount 400 / 400 200 / 200 Output: Catheter 850 / 850 0 / 0 Other: Blood Glucose* 177 253 216 - Labs CBC & BMP: 10/28/17 07:02 10/28/17 07:02 Labs: Abnormal lab results RBC 3.19 M/mcL (3.82-4.97) L 10/28/17 07:02 Hgb 8.0 g/dL (11.5-15.4) L 10/28/17 07:02 Hct 25.9 % (35.3-44.9) L 10/28/17 07:02 MCV 81.2 fL (83.0-100.0) L 10/28/17 07:02 MCH 25.1 pg (28.0-33.3) L 10/28/17 07:02 MCHC 30.9 g/dL (31.6-35.5) L 10/28/17 07:02 RDW 15.7 % (11.5-14.5) H 10/28/17 07:02 Nucleated RBCs/100 WBC 0.4 /100 WBC (0) H 10/26/17 07:23 ABG pH 7.49 pH Units (7.32-7.45) H 10/17/17 15:27 ABG pO2 63 mmHg (85-104) L 10/17/17 15:27 ABG Total CO2 28 mEq/L (20-26) H 10/17/17 15:27 ABG O2 Saturation 94 % (95-98) L 10/17/17 15:27 Glucose 177 mg/dL (70-105) H 10/28/17 07:02 POC Glucose 281 (58-89) H 10/29/17 01:19 Hemoglobin A1c 5.7 % (-5.6) H 10/18/17 04:08 Calcium 8.0 mg/dL (8.6-10.3) L 10/28/17 07:02 Phosphorus 2.3 mg/dL (2.7-4.5) L 10/25/17 05:56 Magnesium 1.5 mg/dL (1.6-2.6) L 10/25/17 05:56 Serum Total Protein 6.0 g/dL (6.4-8.9) L 10/22/17 06:18 Albumin 2.8 g/dL (3.5-5.7) L 10/22/17 06:18 Albumin/Globulin Ratio 0.9 (1.1-2.2) L 10/22/17 06:18 Prealbumin 12.4 mg/dL (17.0-34.0) L 10/22/17 08:06 Consult Discharge Plan - Plan Referrals: Betty Ortega, PAC [Physician Prep Room Supervisor] - 10/28/17 2:15 pm Skip John Jr, MD [Partnered Physician] - 01/16/18 11:30 am ([facility] [address] [address] ) NONE,PCP [Primary Care Provider] - Prescriptions: OxyCODONE Oral Soln [OxyCODONE ORAL SOLN] 10 mg GTUBE Q6H PRN 3 Days #120 ml PRN Reason: Pain
--- NOTE | 2017-10-29 07:43 | Discharge Summary ---
Date of Encounter: 10/29/17 Time of Encounter: 07:37 - Discharge Diagnosis (1) Cervical myelopathy Priority: Primary Status: Chronic (2) Chronic blood loss anemia Priority: Secondary Status: Chronic - Discharge Medications Prescriptions: OxyCODONE Oral Soln [OxyCODONE ORAL SOLN] 10 mg GTUBE Q6H PRN 3 Days #120 ml PRN Reason: Pain Home Medications: Aspirin 81 mg PO DAILY 10/15/17 [History] Carvedilol 3.125 mg PO BID 10/15/17 [History] Cilostazol 50 mg PO DAILY 10/15/17 [History] Clopidogrel [Plavix] 75 mg PO DAILY 10/15/17 [History] Docusate Sodium [Dok] 100 mg PO DAILY 10/15/17 [History] Medroxyprogesterone Acetate [Provera] 2.5 mg PO DAILY 10/15/17 [History] Metformin HCl [Metformin HCl ER] 1,000 mg PO BID 10/15/17 [History] Multivit-Min/FA/Lycopen/Lutein [Centrum Silver Tablet] 1 tab PO DAILY 10/15/17 [ History] Simvastatin [Zocor] 40 mg PO HS 10/15/17 [History] glipiZIDE [Glipizide] 20 mg PO BID 10/15/17 [History] hydroCHLOROthiazide [Hydrochlorothiazide] 12.5 mg PO QAM 10/15/17 [History] OxyCODONE Oral Soln [OxyCODONE ORAL SOLN] 10 mg GTUBE Q6H PRN 3 Days #120 ml [Rx] Allergies/Adverse Reactions: 3 Allergy/AdvReac Type Severity Reaction Status Date / Time No Known Allergies Allergy Verified 10/15/17 06:41 Labs on day of discharge: Labs from last 24 hours 10/29/17 10/28/17 10/28/17 01:19 21:03 15:30 WBC RBC Hgb Hct MCV MCH MCHC RDW Plt Count MPV Immature Gran % Seg Neutrophils % Lymphocytes % Monocytes % Eosinophils % Basophils % Neutrophils # Lymphocytes # Monocytes # Eosinophils # Basophils # Sodium Potassium Chloride Carbon Dioxide BUN Creatinine Est GFR ( Amer) Est GFR (Non-Af Amer) BUN/Creatinine Ratio Glucose POC Glucose 281 H 253 H 177 H Calculated Osmolality Calcium 10/28/17 10/28/17 10/28/17 12:46 07:02 07:02 WBC 4.7 RBC 3.19 L Hgb 8.0 L Hct 25.9 L MCV 81.2 L MCH 25.1 L MCHC 30.9 L RDW 15.7 H Plt Count 300 MPV 9.9 Immature Gran % 0.9 Seg Neutrophils % 69.9 Lymphocytes % 14.2 Monocytes % 12.7 Eosinophils % 2.1 Basophils % 0.2 Neutrophils # 3.3 Lymphocytes # 0.7 Monocytes # 0.6 Eosinophils # 0.1 Basophils # 0.0 Sodium 138 Potassium 3.9 Chloride 105 Carbon Dioxide 26 BUN 14 Creatinine 0.66 Est GFR ( Amer) > 60 Est GFR (Non-Af Amer) > 60 BUN/Creatinine Ratio 21 Glucose 177 H POC Glucose 234 H Calculated Osmolality 291 Calcium 8.0 L - Impressions ITS Impressions Cervical Spine X-Ray 10/15/17 08:47 IMPRESSION: Intraprocedural fluoroscopic spot images as above. See separate procedure report for more information. D/ / Stiven Hayden MD / Stiven Hayden MD Interpreting Provider: Stiven Hayden MD Fluoroscopy 10/15/17 08:47 IMPRESSION: Intraprocedural fluoroscopic spot images as above. See separate procedure report for more information. D/ / Stiven Hayden MD / Stiven Hayden MD Interpreting Provider: Stiven Hayden MD Cervical Spine X-Ray 10/16/17 08:15 IMPRESSION: Anterior fusion involving C3 through C6 with partial corpectomy at C4. No hardware complication. D/ / Zheng Gaston MD / Zheng Gaston MD Interpreting Provider: Zheng Gaston MD Head CT 10/17/17 07:00 IMPRESSION: Multiple remote infarcts as noted above. No acute disease noted. D/ / Howard Machado MD / Howard Machado MD Interpreting Provider: Howard Machado MD Chest X-Ray 10/17/17 13:15 IMPRESSION: Airspace opacity in the right mid to lower lung field, likely related to pneumonia. D/ / Dilip Saini MD / Dilip Saini MD Interpreting Provider: Dilip Saini MD Videofluoroscopic Swallow 10/20/17 00:01 IMPRESSION: Aspiration with minimal cough reflex. Please see separate speech pathology report for full discussion of findings and recommendations. D/ / 10/20/2017 11:25:39 Samson An MD / alexys Interpreting Provider: Samson An MD Videofluoroscopic Swallow 10/22/17 11:35 IMPRESSION: Dysphagia as described above. Please see separate speech pathology report for full discussion of findings and recommendations. D/ / 10/22/2017 16:16:25 Pratik Roman MD / earankush Interpreting Provider: Pratik Roman MD Date of admission: 10/15/17 13:27 Primary care physician: PCP NONE Consults: 10/15/17 13:19 Consult to Occupational Therapy [CONS] Routine Comment: Evaluate, develop and implement POC Reason for Consult: Postoperative rehabilitation Consult to Physical Therapy [CONS] Routine Comment: Evaluate, develop and implement POC Reason for Consult: Postoperative rehabilitation Consult to Pullboat Engineer [CONS] Routine Reason for SW Consult: Inpatient rehabilitation Consult to Spine Navigator [CONS] [CONS] Routine 10/17/17 15:37 Consult to Pulmonology [CONS] Stat Consulting Provider: Pulm [facility] Reason for Consult: Patient had cervical fusion surgery two days ago. Today, CXR shows pneumonia and pt. is having difficulty clearing secretions. Concern is for aspiration and worsening respiratory distress/decline. ABG ordered stat. Pt. has been suctioned several times today. Concern is for need for possible bronch. Bed mgmt currently looking for ICU bed for pt. Call Completed: Yes 10/18/17 08:35 Consult to Speech Therapy [CONS] Routine Comment: Evaluate, develop and implement POC Reason for Consult: AMS and aspiration risk Call Completed: No 10/20/17 12:46 Consult to Invasive Line Access Team [CONS] Routine Reason for Consult: Limited vascular access Line Type: EPIV 10/22/17 11:31 consult to agriculture teacher [Consult to Nutrition] [CONS] Routine Comment: Consulting Provider: NUTRITION Reason for Dietary Consult: Other Other:: recommendations for nourishment. 10/23/17 09:01 Consult to Surgery [CONS] Routine Consulting Provider: Gregory Meehan Reason for Consult: eval for peg tube vs. ngt feeding - Dr. John states he will call Call Completed: No 10/24/17 09:58 consult to agriculture teacher [Consult to Nutrition] [CONS] Routine Comment: verbal order per Dr. Meehan Consulting Provider: NUTRITION Reason for Dietary Consult: Tube Feed Start & Manage Other:: okay to use PEG tube now - Patient Status Disposition: Transfer SNF Condition: Fair Functional capacity at discharge: wheelchair bound Overall status at discharge: patient is progressing back to baseline - Discharge Instructions Follow Up With: Betty Ortega PAC [Physician Java Development Manager] - 10/28/17 2:15 pm Skip John Jr, MD [Partnered Physician] - 01/16/18 11:30 am ([facility] [address] ) NONE,PCP [Primary Care Provider] - - Diet and Activity Activity: as per physical therapy Diet: other - Hospital Course Hospital course: Ms. Marcos is a 67 year old female who underwent a corpectomy C4, cervical fusion C3-C6 for severe cervical myelopathy. She had a complicated postoperative course. This is manifested by dysphasia symptoms with subsequent aspiration pneumonia, chronic blood loss anemia, subsequent PEG tube placement. She was counseled by the hospitalist service as well as general surgery during the hospitalization. The hospitalist service to place the patient on 10 day course of intravenous antibiotics and her respiratory status improved. Dr. Meehan of the general surgery service placed a PEG tube and she has tolerated tube feedings well. She was transfused 2 units of packed red blood cells during the hospitalization uneventfully. She is improved with regard to her neurologic status compared to her preoperative state. She had minimal hand function unable to control her hands or open and close them prior to surgery. She canal make a fist opening closing her bilateral upper extremities. She still remains essentially nonambulatory. Plan is to transfer to a rehabilitation facility to today to follow-up in my office in 2 weeks. I radiographs were satisfactory postoperatively with regard to her cervical spine. - Time Spent with Patient Total time spent providing and/or coordinating discharge services: - VTE Documentation of Mechanical Device: Intermittent pneumatic compression device
[2017-10-29] MEDS: Aspirin 81 MG TAB.CHEW PO SCH (08:55)
[2017-10-29] MEDS: Docusate Oral Soln 100 MG/10 ML UDC GTUBE SCH (08:55)
[2017-10-29] MEDS: Nystatin Cream 15 GM TUBE TP SCH (08:55)
[2017-10-29] MEDS: Insulin DETEMIR 100 UNIT/ML X5UNITS SQ SCH (08:57)
== END 2017-10-29 12:00 | DRG 471 ==
LOC: SAMDAY 06:08 → 3NENU 13:27 → ICNU 10-17 18:18 → 3NENU 10-21 18:53
PROVIDERS: ADMIT Orthopaedic Surgery Orthopaedic Surgery of the Spine; ATTEND Orthopaedic Surgery Orthopaedic Surgery of the Spine
PROC: SPICORP (2017-10-15 07:45)